=== PATIENT | male | born 1950 | race Caucasian/White ===

== ENCOUNTER 2019-10-27 01:27 | Outpatient (CLI) | payer MEDICARE, SELFPAY ==
[2019-10-27 18:35] LABS: SARS-CoV-2 RNA PCR Negative
== END 2019-10-27 01:28 | disposition home or self-care (01) ==
LOC: ANHCOVIDDT 01:27
PROVIDERS: PCP Internal Medicine; Visit Provider Internal Medicine Gastroenterology
DX: Z01.812 Encounter for preprocedural laboratory examination (principal); Z20.828 Contact with and (suspected) exposure to other viral communicable diseases
CPT/HCPCS: 87635; C9803; U0003

== ENCOUNTER 2019-10-29 01:16 | Day surgery (SDC) | payer MEDICARE, SELFPAY ==
[2019-10-21 12:57] VITALS: BMI 33.5
[2019-10-29 06:39] VITALS: BMI 34.1
[2019-10-29 06:45] VITALS: BP 206/80; PULSE 58; RESP 20; O2SAT 96
[2019-10-29 07:03] LABS: Glucose Point of Care 134 (65-105)
[2019-10-29] MEDS: LACTATED RINGERS 1,000 ML 150 ML IV CONT (07:08)
[2019-10-29 07:18] LABS: INR 1.7; Prothrombin Time 19.9 Seconds (11.1-14.7)
--- NOTE | 2019-10-29 07:45 | WPDANESEPPF ---
Anes - Initial Pre Proc Eval Procedure: Operation Date: 10/29/19 08:00 Proposed Procedures p Esophagogastroduodenoscopy & Colonoscopy - Fernando Kramer MD Date/Time: 10/29/19 07:45 Surgeon: Fernando Kramer MD Pre Op Diagnosis: Iron Deficiency Anemia Patient Data Age: 69 Gender: M Height: 5 ft 10 in Weight: 108 kg Allergies Allergy/AdvReac Type Severity Reaction Status Date / Time Penicillins Allergy Unknown unknown Verified 10/29/19 06:42 Home Medications Medication Instructions Recorded Confirmed Type folic acid-vit B6-vit B12 2.2 1 tablet PO DAILY 05/05/19 10/21/19 History mg-25 mg-0.5 mg tablet sotalol 80 mg tablet 80 mg PO BID 05/05/19 10/21/19 History warfarin 4 mg tablet 4 mg PO DAILY tablet 05/05/19 10/21/19 History tamsulosin 0.4 mg capsule 0.4 mg PO DAILY #90 cap 05/18/19 10/21/19 Rx furosemide 40 mg tablet 40 mg PO DAILY #90 tablet 06/22/19 10/21/19 Rx aspirin 81 mg tablet,delayed 81 mg PO DAILY 08/17/19 10/21/19 History release mecobalamin (vitamin B12) 1,000 1,000 mcg SUBLINGUAL DAILY 08/17/19 10/21/19 History mcg disintegrating tablet,sublingual ferrous sulfate 325 mg (65 mg 325 mg PO BID #60 tablet 09/15/19 10/21/19 Rx iron) tablet potassium chloride 10 mEq 10 meq PO DAILY #90 tablet 09/17/19 10/21/19 Rx tablet,extended release(part/cryst) quinapril 40 mg tablet 40 mg PO BID #180 tablet 09/21/19 10/21/19 Rx omega 7-zfg-xve-fish oil [Fish Oil] 1 cap PO BID 10/21/19 10/21/19 History atorvastatin 80 mg tablet 80 mg PO DAILY #90 tablet 10/26/19 Rx metformin 500 mg tablet 500 mg PO BID #180 tablet 10/26/19 Rx Laboratory Tests 10/29/19 10/29/19 07:00 07:01 PT 19.9 Seconds H Seconds (11.1-14.7) INR 1.7 POC Capillary Glucose 134 mg/dl H mg/dl (65-105) Patient hx anesthesia problems: none Family hx anesthesia problems: none [facility] Past Medical History Medical History Acute allergic conjunctivitis of left eye Blepharitis of left eye BMI 36.0-36.9,adult Encounter for routine adult health examination with abnormal findings Fatigue Hyperlipidemia Iron deficiency anemia SOB (shortness of breath) Surgical History Surgical History Aortic valve replaced History of tonsillectomy Social History Social History Smoking status: Never smoker Alcohol intake: current Gender identity (if verbalized by the patient): Male Sexual Orientation (if Verbalized by the Patient): Straight or Heterosexual Anes - Eval Final PreProcedure Day of Procedure 10/29/19 07:45 Patient weight: obese Heart: regular rate and rhythm Lungs: clear to auscultation Airway: Mallampati scale class II Neurological: alert and oriented Last oral intake: >/= 8 hours ASA classification: III Emergent: no Anesthetic plan: proceed Anesthesia type and monitoring: general GIVS and standard monitoring Informed Consent: The patient's anesthetic plan and its attendant risks and benefits were discussed with the patient/family/POA. Questions were solicited and answers provided to the satisfaction of the patient/family/POA.
--- NOTE | 2019-10-29 08:20 | WPDGICN ---
Assessment and Plan Assessment and plan (1) Iron deficiency anemia: Qualifiers: Iron deficiency anemia type: unspecified iron deficiency Qualified Code(s): D50.9 - Iron deficiency anemia, unspecified Code(s): D50.9 - Iron deficiency anemia, unspecified Status: Acute Assessment and Plan: Because of patient's anemia and concern over anticoagulation concern over possible GI blood loss. Plan is for colonoscopy an EGD prior to resuming anticoagulation. Coumadin will be held briefly during this interval. (2) Aortic valve replaced: Code(s): Z95.2 - Presence of prosthetic heart valve Status: Acute GI Consult Note Consult date/time: 10/29/19 08:20 HPI: Delroy Chou is a 69 year old male Seen in evaluation at the request of Dr Ameya Chaudhary. patient recently found to be anemic. He presents today for endoscopy. Patient has been feeling weak for approximately 2-3 months. His hemoglobin is noted to drop to 9.1. Patient has been started on iron replacement with some improvement of symptoms. He denies any obvious bleeding. He states his weight appetite bowel movements are normal. He did denies abdominal pain. With iron replacement is hemoglobin is begun to return to normal. Past medical history is significant for aortic valve replacement 2007 on warfarin therapy. Family history is no reported history of colon or rectal disease. His father had peptic ulcer. Review of Systems Review of Systems: All systems reviewed & are unremarkable except as noted in HPI and below PMFSH Past Medical History Medical History Acute allergic conjunctivitis of left eye Blepharitis of left eye BMI 36.0-36.9,adult Encounter for routine adult health examination with abnormal findings Fatigue Hyperlipidemia Iron deficiency anemia SOB (shortness of breath) Surgical History Surgical History Aortic valve replaced History of tonsillectomy Family History Family History Mother Hypertension Social History Social History Smoking status: Never smoker Alcohol intake: current Gender identity (if verbalized by the patient): Male Sexual Orientation (if Verbalized by the Patient): Straight or Heterosexual Meds Home Medications and Allergies Home Medications Medication Instructions Recorded Confirmed Type folic acid-vit B6-vit B12 2.2 1 tablet PO DAILY 05/05/19 10/21/19 History mg-25 mg-0.5 mg tablet sotalol 80 mg tablet 80 mg PO BID 05/05/19 10/21/19 History warfarin 4 mg tablet 4 mg PO DAILY tablet 05/05/19 10/21/19 History tamsulosin 0.4 mg capsule 0.4 mg PO DAILY #90 cap 05/18/19 10/21/19 Rx furosemide 40 mg tablet 40 mg PO DAILY #90 tablet 06/22/19 10/21/19 Rx aspirin 81 mg tablet,delayed 81 mg PO DAILY 08/17/19 10/21/19 History release mecobalamin (vitamin B12) 1,000 1,000 mcg SUBLINGUAL DAILY 08/17/19 10/21/19 History mcg disintegrating tablet,sublingual ferrous sulfate 325 mg (65 mg 325 mg PO BID #60 tablet 09/15/19 10/21/19 Rx iron) tablet potassium chloride 10 mEq 10 meq PO DAILY #90 tablet 09/17/19 10/21/19 Rx tablet,extended release(part/cryst) quinapril 40 mg tablet 40 mg PO BID #180 tablet 09/21/19 10/21/19 Rx omega 6-qdq-gsc-fish oil [Fish Oil] 1 cap PO BID 10/21/19 10/21/19 History atorvastatin 80 mg tablet 80 mg PO DAILY #90 tablet 10/26/19 Rx metformin 500 mg tablet 500 mg PO BID #180 tablet 10/26/19 Rx Allergies Allergy/AdvReac Type Severity Reaction Status Date / Time Penicillins Allergy Unknown unknown Verified 10/29/19 06:42 Exam Narrative: Exam Narrative: Physical exam reveals patient to be alert. Vital signs stable. HEENT exam unremarkable. Lungs are clear to auscultation and percussion. Heart is without murmur or e
[2019-10-29] MEDS: BENZOCAINE (*SP) 60 ML SPRAY CAN (HURRICAINE) 1 SPRAY MUCOUS MEM (08:30)
--- NOTE | 2019-10-29 08:59 | SUR.OPER ---
EGD START 834, END 837 COLONOSCOPY START 845, END 855
[2019-10-29 09:02] VITALS: BP 97/73; PULSE 45; RESP 23; O2SAT 97
[2019-10-29 09:12] VITALS: BP 100/64; PULSE 46; RESP 21; O2SAT 97
[2019-10-29 09:21] VITALS: BP 112/64; PULSE 46; RESP 20; O2SAT 97
== END 2019-10-29 09:38 | disposition home or self-care (01) ==
PROVIDERS: PCP Internal Medicine; Visit Provider Internal Medicine Gastroenterology
PROC: 0DJ08ZZ Inspection of Upper Intestinal Tract, Via Natural or Artificial Opening Endoscopic (ICD-10-PCS; CPT 43235; principal; 2019-10-29 08:00)
DX: D50.9 Iron deficiency anemia, unspecified (principal); K25.3 Acute gastric ulcer without hemorrhage or perforation; K29.50 Unspecified chronic gastritis without bleeding; K44.9 Diaphragmatic hernia without obstruction or gangrene; K64.8 Other hemorrhoids; K57.30 Diverticulosis of large intestine without perforation or abscess without bleeding; E78.5 Hyperlipidemia, unspecified; Z95.2 Presence of prosthetic heart valve; Z79.01 Long term (current) use of anticoagulants; Z79.82 Long term (current) use of aspirin; Z79.84 Long term (current) use of oral hypoglycemic drugs
CPT/HCPCS: 43239; 45378; 36415; 85610; 88305; 88342; J2704; J3370; J7120

== ENCOUNTER 2020-01-06 03:50 | Outpatient (CLI) | payer MEDICARE, SELFPAY ==
[2020-01-06 19:05] LABS: SARS-CoV-2 RNA PCR Negative
== END 2020-01-06 03:51 | disposition home or self-care (01) ==
LOC: ANHCOVIDDT 03:51
PROVIDERS: PCP Internal Medicine; Visit Provider Internal Medicine Gastroenterology
DX: Z01.812 Encounter for preprocedural laboratory examination (principal); Z20.828 Contact with and (suspected) exposure to other viral communicable diseases
CPT/HCPCS: 87635; C9803; U0003

== ENCOUNTER 2020-01-08 01:44 | Day surgery (SDC) | payer MEDICARE, SELFPAY ==
[2020-01-04 09:58] VITALS: BMI 33.0
[2020-01-08 06:17] VITALS: BP 193/69; PULSE 56; RESP 14; TEMP 36.5; O2SAT 96; BMI 34.0
[2020-01-08] MEDS: LACTATED RINGERS 1,000 ML 30 ML IV CONT (06:36)
[2020-01-08 06:46] LABS: Glucose Point of Care 146 (65-105)
[2020-01-08 07:15] LABS: INR 1.7; Prothrombin Time 19.7 Seconds (11.1-14.7)
--- NOTE | 2020-01-08 07:37 | WPDGICN ---
Assessment and Plan Assessment and plan (1) Iron deficiency anemia: Qualifiers: Iron deficiency anemia type: unspecified iron deficiency Qualified Code(s): D50.9 - Iron deficiency anemia, unspecified Code(s): D50.9 - Iron deficiency anemia, unspecified Status: Acute Assessment and Plan: Continue iron replacement. (2) Gastric ulcer: Code(s): K25.9 - Gastric ulcer, unspecified as acute or chronic, without hemorrhage or perforation Status: Acute Assessment and Plan: Patient with recent gastric ulcer. Now on proton pump inhibitor therapy. Plan is for EGD to assess response to therapy. Continue iron replacement. Avoid nonsteroidal anti-inflammatory agents. (3) Aortic valve replaced: Code(s): Z95.2 - Presence of prosthetic heart valve Status: Acute Assessment and Plan: Anticoagulation will be held briefly for endoscopy. GI Consult Note Consult date/time: 01/08/20 07:37 HPI: Delroy Chou is a 69 year old male seen in evaluation at the request of Dr Chaudhary patient recently underwent evaluation for iron deficiency anemia GI endoscopy revealed gastric ulcer. Patient has been maintained on proton pump inhibitor therapy. He denies any bleeding. He has had no weight loss. His bowel habits have been normal. He tolerates diet with no pain. He presents today for follow-up examination. Review of Systems Review of Systems: All systems reviewed & are unremarkable except as noted in HPI and below PMFSH Past Medical History Medical History (Updated 01/08/20 @ 07:39 by Fernando Kramer MD) Acute allergic conjunctivitis of left eye Blepharitis of left eye BMI 36.0-36.9,adult Encounter for routine adult health examination with abnormal findings Fatigue Hyperlipidemia Iron deficiency anemia SOB (shortness of breath) Surgical History Surgical History Aortic valve replaced History of tonsillectomy Family History Family History Mother Hypertension Social History Social History Smoking status: Never smoker Alcohol intake: current Substance use type: does not use Living arrangements: with family Gender identity (if verbalized by the patient): Male Spiritual care concerns: No Meds Home Medications and Allergies Home Medications Medication Instructions Recorded Confirmed Type sotalol 80 mg tablet 80 mg PO BID 05/05/19 01/08/20 History warfarin 4 mg tablet 4 mg PO DAILY tablet 05/05/19 01/08/20 History tamsulosin 0.4 mg capsule 0.4 mg PO DAILY #90 cap 05/18/19 01/08/20 Rx aspirin 81 mg tablet,delayed 81 mg PO DAILY 08/17/19 01/08/20 History release mecobalamin (vitamin B12) 1,000 1,000 mcg SUBLINGUAL DAILY 08/17/19 01/08/20 History mcg disintegrating tablet,sublingual potassium chloride 10 mEq 10 meq PO DAILY #90 tablet 09/17/19 01/08/20 Rx tablet,extended release(part/cryst) quinapril 40 mg tablet 40 mg PO BID #180 tablet 09/21/19 01/08/20 Rx omega 6-voy-zlh-fish oil [Fish Oil] 1 cap PO BID 10/21/19 01/08/20 History atorvastatin 80 mg tablet 80 mg PO DAILY #90 tablet 10/26/19 01/08/20 Rx metformin 500 mg tablet 500 mg PO BID #180 tablet 10/26/19 01/08/20 Rx furosemide 40 mg tablet See Rx Instructions .ROUTE 12/15/19 01/08/20 Rx .COMPLEX #90 tablet Allergies Allergy/AdvReac Type Severity Reaction Status Date / Time Penicillins Allergy Unknown unknown Verified 01/08/20 06:34 Vital Signs Vital Signs - 24 hr 01/08/20 06:17 Temperature 97.7 F Pulse Rate 56 L Respiratory Rate 14 Blood Pressure 193/69 H Pulse Oximetry 96 Exam Narrative: Exam Narrative: Physical exam reveals patient to be alert. Vital signs stable. HEENT exam unremarkable. Lungs are clear to auscultation and percussion. Heart is without murmur or extra sounds. Abdomina
[2020-01-08 07:39] VITALS: BP 109/61; PULSE 53; RESP 25; O2SAT 92
[2020-01-08 07:49] VITALS: BP 105/59; PULSE 51; RESP 21; O2SAT 95
[2020-01-08 07:59] VITALS: BP 122/66; PULSE 52; RESP 25; O2SAT 95
[2020-01-08 08:08] VITALS: BP 138/71; PULSE 52; RESP 27; O2SAT 95
== END 2020-01-08 08:20 | disposition home or self-care (01) ==
PROVIDERS: PCP Internal Medicine; Visit Provider Internal Medicine Gastroenterology
PROC: 0DJ08ZZ Inspection of Upper Intestinal Tract, Via Natural or Artificial Opening Endoscopic (ICD-10-PCS; CPT 43235; principal; 2020-01-08 07:30)
DX: K25.9 Gastric ulcer, unspecified as acute or chronic, without hemorrhage or perforation (principal); D50.9 Iron deficiency anemia, unspecified; K29.50 Unspecified chronic gastritis without bleeding; K29.00 Acute gastritis without bleeding; E78.5 Hyperlipidemia, unspecified; Z95.2 Presence of prosthetic heart valve; Z79.01 Long term (current) use of anticoagulants
CPT/HCPCS: 43239; 36415; 85610; 88305; 88342; J2704; J3370; J7120

== ENCOUNTER 2020-06-24 16:55 | Emergency (ER) | payer MEDICARE, SELFPAY ==
[2020-06-24 17:03] VITALS: BP 160/66; PULSE 80; RESP 18; TEMP 37.2; O2SAT 97
[2020-06-24 18:32] VITALS: BP 163/91; PULSE 84; RESP 16; O2SAT 93
--- NOTE | 2020-06-24 18:44 | ED.MALEGU ---
HPI - Male Genitourinary General Chief complaint: Urogenital-Male Stated complaint: frequent urination Time Seen by Provider: 06/24/20 18:25 Source: patient Mode of arrival: ambulatory Limitations: no limitations History of Present Illness HPI Narrative: Patient is a 70-year-old male complaining of increasing urinary frequency and hematuria that started today. Patient was advised by his urologist to go to the emergency room for further evaluation and treatment. Patient denies any chest pain, shortness of breath, abdominal pain, flank pain, fever or chills. Related Data Home Medications Medication Instructions Recorded Confirmed sotalol 80 mg tablet 80 mg PO BID 05/05/19 06/23/20 warfarin 4 mg tablet 4 mg PO DAILY tablet 05/05/19 06/23/20 aspirin 81 mg tablet,delayed 81 mg PO DAILY 08/17/19 06/23/20 release mecobalamin (vitamin B12) 1,000 1,000 mcg SUBLINGUAL DAILY 08/17/19 06/23/20 mcg disintegrating tablet,sublingual folic acid-vit B6-vit B12 2.2 1 tablet PO DAILY 01/21/20 06/23/20 mg-25 mg-0.5 mg tablet cholecalciferol (vitamin D3) 50 mcg PO DAILY 06/23/20 06/23/20 furosemide 40 mg PO QAM 06/23/20 06/23/20 potassium chloride 10 meq PO DAILY 06/23/20 06/23/20 tamsulosin 0.4 mg PO HS 06/23/20 06/23/20 Allergies Allergy/AdvReac Type Severity Reaction Status Date / Time Penicillins Allergy Unknown Rash Verified 06/24/20 18:38 Review of Systems Review of Systems: All systems reviewed & are unremarkable except as noted in HPI and below Constitutional: Constitutional: Denies body ache(s), Denies chills, Denies excessive sweating, Denies fatigue, Denies fever(s), Denies headache(s), Denies lethargy, Denies malaise, Denies weakness and Denies weight loss Eyes: Eyes: Denies blurry vision, Denies change in vision and Denies loss of vision ENT: Denies dizziness, Denies ear discharge, Denies headache(s), Denies lip swelling, Denies epistaxis, Denies nasal congestion, Denies neck pain, Denies throat swelling and Denies tongue swelling Cardiovascular: Cardiovascular: Denies chest pain, Denies chest pain at rest, Denies chest pain with activity, Denies diaphoresis, Denies rapid heart rate, Denies edema, Denies irregular heart rhythm, Denies lightheadedness, Denies palpitations, Denies dyspnea and Denies dyspnea on exertion Respiratory: Respiratory: Denies chest congestion, Denies cough, Denies hemoptysis, Denies dyspnea and Denies dyspnea on exertion Gastrointestinal: Gastrointestinal: Denies abdominal pain, Denies melena, Denies hematochezia, Denies diarrhea, Denies nausea, Denies vomiting and Denies hematemesis Musculoskeletal: Musculoskeletal: Denies abnormal gait, Denies deformity, Denies joint swelling, Denies limited range of motion, Denies neck pain and Denies numbness Neurologic: Denies Abnormal speech present, Denies abnormal gait, Denies confusion, Denies dizziness, Denies headache(s), Denies focal weakness, Denies loss of vision, Denies numbness, Denies Other visual disturbances, Denies Sensory deficit (Neuro) and Denies weakness Psychiatric: Psychiatric: Denies confusion, Denies depression, Denies auditory hallucinations, Denies homicidal ideation and Denies suicidal ideation Endocrine: Endocrine: Denies cold intolerance, Denies excessive sweating, Denies fatigue, Denies heat intolerance and Denies palpitations Hematologic/Lymphatic: Hematologic/Lymphatic: Denies easy bleeding and Denies easy bruising Allergic/Immunologic: Allergic/Immunologic: Denies lip swelling, Denies throat swelling and Denies tongue swelling PMFSH Past Medical History Medical History A-fib Acute allergic conjunctivitis of left eye Blepharitis of left eye BMI 34.0-34.9,adult BMI 36.0-36.9,adult DM w/o complication type II Encounter for routine adult health examination with abnormal findings Encounter for routine adult health examination without abnormal findings Fatigue Hyperlipidem
[2020-06-24 18:59] LABS: Basophils Absolute Auto 0.1 K/mm3 (0.0-0.1); Basophils Percent Auto 0.4 % (0.2-1.2); Eosinophils Percent Auto 0.3 % (0-4.4); Hematocrit 45.5 % (42.0-52.0); Hemoglobin 16.3 g/dL (14.0-18.0); Immature Granulocyte Absolute 0.07 K/mm3 (0.00-0.031); Immature Granulocyte Percent A 0.6 % (0-0.5); Lymphocytes Absolute Auto 0.88 K/mm3 (0.9-3.2); Lymphocytes Percent Auto 7.3 % (18.3-44.2); Mean Corpuscular HGB Conc 35.8 g/dl (32-36); Mean Corpuscular Hemoglobin 33.7 pg (26-34); Mean Platelet Volume 11.4 fl (7.4-10.4); Monocytes Absolute Auto 2.1 K/mm3 (0.1-0.6); Monocytes Percent Auto 17.8 % (2.6-8.5); Neutrophils Absolute Auto 8.8 K/mm3 (1.3-6.7); Neutrophils Percent Auto 73.6 % (45.5-73.1); Platelet Count Result 201 k/mm3 (150-375); Red Blood Count 4.84 M/mm3 (4.6-6.20); Red Cell Distribution Width 14.6 % (11.5-14.5)
[2020-06-24 19:07] LABS: Add Urine Microscopic? YES; Appearance Urine Turbid (Clear); Bacteria Urine 1+ /hpf; Bilirubin Urine Negative (Negative); Blood Urine 3+ (Negative); Color Urine Red (Yellow); Glucose Urine UA 1+ mg/dL (Negative); Ketones Urine Negative (Negative); Leukocyte Esterase Ur 2+ LEU/UL (Negative); Nitrate Urine Negative (Negative); Protein Urine 2+ mg/dL (Negative); RBC Urine >75 /hpf (0-2); Specific Grav Ur 1.019 (1.001-1.035); Urobilinogen Urine Negative mg/dL (<2.0); WBC Clumps Urine Present /HPF; WBC Urine >75 /hpf
[2020-06-24 19:13] LABS: Anion Gap 11 mmol/L (8-16); Blood Urea Nitrogen 32 mg/dL (9-20); Calcium 9.2 mg/dL (8.4-10.2); Carbon Dioxide 22 mmol/L (22-30); Chloride 104 mmol/L (98-107); Estimated CRCL calculation 59 ml/min; Estimated Glomerular Filt Rate 60; Glucose 158 mg/dL (75-110); INR 2.1; Partial Thromboplastin Time 50.1 SECONDS (22.3-36.8); Potassium 3.8 mmol/L (3.4-5.0); Prothrombin Time 24.5 Seconds (11.1-14.7); Sodium 137 mmol/L (137-145)
[2020-06-24 21:31] VITALS: BP 148/78; PULSE 80; RESP 16; O2SAT 100
== END 2020-06-24 21:33 | disposition home or self-care (01) ==
PROVIDERS: Emergency Provider Emergency Medicine; PCP Internal Medicine
DX: N30.01 Acute cystitis with hematuria (principal); I48.91 Unspecified atrial fibrillation; E11.9 Type 2 diabetes mellitus without complications; E78.5 Hyperlipidemia, unspecified; E53.8 Deficiency of other specified B group vitamins; E55.9 Vitamin D deficiency, unspecified; Z79.01 Long term (current) use of anticoagulants; Z79.82 Long term (current) use of aspirin; Z79.84 Long term (current) use of oral hypoglycemic drugs
CPT/HCPCS: 36415; 80048; 81001; 85025; 85610; 85730; 87077; 87086; 87088; 87186; 99284; J0696

== ENCOUNTER → 2020-06-27 03:07 | Outpatient (CLI) | payer MEDICARE, SELFPAY ==
[2020-06-27 19:42] LABS: SARS-CoV-2 RNA PCR Negative
== END ==
PROVIDERS: PCP Internal Medicine; Visit Provider Urology
DX: Z01.812 Encounter for preprocedural laboratory examination (principal); Z20.822 Contact with and (suspected) exposure to COVID-19
CPT/HCPCS: C9803; U0003; U0005

== ENCOUNTER 2020-06-28 10:32 | Outpatient (CLI) | payer MEDICARE, SELFPAY ==
[2020-06-28 11:59] LABS: INR 1.3; Prothrombin Time 16.8 Seconds (11.1-14.7)
[2020-06-28 12:00] LABS: Partial Thromboplastin Time 31.5 SECONDS (22.3-36.8)
== END 2020-06-28 10:33 | disposition home or self-care (01) ==
LOC: ANHSURGERY 10:35
PROVIDERS: Anesthesiology; PCP Internal Medicine; Visit Provider Urology
DX: Z79.899 Other long term (current) drug therapy (principal); Z01.818 Encounter for other preprocedural examination
CPT/HCPCS: 36415; 85610; 85730

== ENCOUNTER → 2020-07-11 04:16 | Outpatient (CLI) | payer MEDICARE, SELFPAY ==
[2020-07-11 19:57] LABS: SARS-CoV-2 RNA PCR Negative
== END ==
PROVIDERS: PCP Internal Medicine; Visit Provider Urology
DX: Z01.812 Encounter for preprocedural laboratory examination (principal); Z20.822 Contact with and (suspected) exposure to COVID-19
CPT/HCPCS: C9803; U0003; U0005

== ENCOUNTER 2020-07-14 01:10 | Day surgery (SDC) | payer MEDICARE, SELFPAY ==
[2020-06-23 12:30] VITALS: BMI 32.2
--- NOTE | 2020-07-11 07:57 | PM.HPGS ---
History of Present Illness History of Present Illness Consent: Risks, benefits, and alternatives have been discussed and questions answered. Patient agrees to proceed with procedure. Chief complaint: elevated psa Narrative: Delroy Chou is a 70 year old male with a known history of prostate cancer diagnosed in February 2019. Initial biopsy showed 1 of 12 cores with [place] adenocarcinoma 6. He is adopted a course of active surveillance but recent prostate MRI shows a suspicious lesion in the left base, anterior transition zone. After discussion of options we have elected for a MRI fusion confirmatory biopsy. He is aware of the risk including rectal bleeding and urinary tract infection with possible sepsis. Review of Systems Cardiovascular: Cardiovascular: Denies chest pain, Denies lightheadedness, Denies palpitations and Denies dyspnea Respiratory: Respiratory: Denies dyspnea Gastrointestinal: Gastrointestinal: Denies diarrhea, Denies nausea and Denies vomiting Genitourinary: Genitourinary: Denies hematuria and Denies dysuria Endocrine: Endocrine: Denies palpitations PMFSH Past Medical History Medical History A-fib Acute allergic conjunctivitis of left eye Blepharitis of left eye BMI 34.0-34.9,adult BMI 36.0-36.9,adult DM w/o complication type II Encounter for routine adult health examination with abnormal findings Encounter for routine adult health examination without abnormal findings Fatigue Hyperlipidemia Iron deficiency anemia SOB (shortness of breath) Vitamin B12 deficiency Vitamin D deficiency Surgical History Surgical History Aortic valve replaced History of tonsillectomy Family History Family History Mother Hypertension Social History Social History Smoking status: Never smoker Second hand tobacco smoke exposure: Yes Alcohol intake: current Drinks per week: 14 Substance use: never Substance use type: does not use Additional living arrangements comments: Gender identity (if verbalized by the patient): Male Spiritual care concerns: No Meds Home Medications and Allergies Home Medications Medication Instructions Recorded Confirmed Type sotalol 80 mg tablet 80 mg PO BID 05/05/19 07/05/20 History warfarin 4 mg tablet 4 mg PO DAILY tablet 05/05/19 07/05/20 History aspirin 81 mg tablet,delayed 81 mg PO DAILY 08/17/19 07/05/20 History release mecobalamin (vitamin B12) 1,000 1,000 mcg SUBLINGUAL DAILY 08/17/19 07/05/20 History mcg disintegrating tablet,sublingual quinapril 40 mg tablet 40 mg PO BID #180 tablet 09/21/19 07/05/20 Rx atorvastatin 80 mg tablet 80 mg PO DAILY #90 tablet 10/26/19 07/05/20 Rx metformin 500 mg tablet 500 mg PO BID #180 tablet 10/26/19 07/05/20 Rx folic acid-vit B6-vit B12 2.2 1 tablet PO DAILY 01/21/20 07/05/20 History mg-25 mg-0.5 mg tablet pantoprazole 40 mg tablet,delayed 40 mg PO QAM #90 tablet 04/08/20 07/05/20 Rx release cholecalciferol (vitamin D3) 50 mcg PO DAILY 06/23/20 07/05/20 History furosemide 40 mg PO QAM 06/23/20 07/05/20 History potassium chloride 10 meq PO DAILY 06/23/20 07/05/20 History tamsulosin 0.4 mg PO HS 06/23/20 07/05/20 History nitrofurantoin 100 mg PO Q12H 10 Days #20 cap 07/06/20 Rx monohydrate/macrocrystals 100 mg capsule Allergies Allergy/AdvReac Type Severity Reaction Status Date / Time Penicillins Allergy Unknown Rash Verified 07/05/20 12:29 Exam Const: General: no acute distress Resp: Effort & Inspection: normal respiratory effort GI: Inspection: non-distended GI Palp: No abdominal tenderness and No Guarding due to palpation present (GI) Auscultation: normal bowel sounds Assessment and Plan Assessment and plan (1) Prostate cancer: Cod
--- NOTE | 2020-07-14 06:55 | WPDHPUPDATE1 ---
History and Physical Update Update Date/Time: 07/14/20 06:55 History and Physical has been reviewed, including an updated exam of the patient. There are NO changes in the patient's condition. Risks, benefits, and alternatives have been discussed and questions answered. Patient agrees to proceed with procedure.
[2020-07-14] MEDS: LACTATED RINGERS 1,000 ML 30 ML IV CONT (10:22)
[2020-07-14 10:28] LABS: Glucose Point of Care 128 (65-105)
[2020-07-14 10:37] VITALS: BP 150/96; PULSE 84; RESP 16; TEMP 36.6; O2SAT 98
[2020-07-14 10:43] LABS: INR 1.6; Prothrombin Time 19.7 Seconds (11.1-14.7)
--- NOTE | 2020-07-14 10:53 | WPDANESEPPF ---
Anes - Initial Pre Proc Eval Procedure: Operation Date: 07/14/20 11:45 Proposed Procedures p Prostate Ultrasound and Cognitive Uronav Fusion Biopsy - Oswaldo Olivares MD Date/Time: 07/14/20 10:53 Surgeon: Oswaldo Olivares MD Pre Op Diagnosis: elevated psa Patient Data Age: 70 Gender: M Height: 5 ft 10 in Weight: 99.4 kg Last Vital Signs Temp 97.9 F 07/14/20 10:37 Pulse 84 07/14/20 10:37 Resp 16 07/14/20 10:37 BP 150/96 H 07/14/20 10:37 Pulse Ox 98 07/14/20 10:37 Allergies Allergy/AdvReac Type Severity Reaction Status Date / Time Penicillins Allergy Intermediate Rash Verified 07/14/20 10:09 Home Medications Medication Instructions Recorded Confirmed Type sotalol 80 mg tablet 80 mg PO BID 05/05/19 07/14/20 History warfarin 4 mg tablet 4 mg PO DAILY tablet 05/05/19 07/14/20 History aspirin 81 mg tablet,delayed 81 mg PO DAILY 08/17/19 07/14/20 History release mecobalamin (vitamin B12) 1,000 1,000 mcg SUBLINGUAL DAILY 08/17/19 07/14/20 History mcg disintegrating tablet,sublingual quinapril 40 mg tablet 40 mg PO BID #180 tablet 09/21/19 07/14/20 Rx atorvastatin 80 mg tablet 80 mg PO DAILY #90 tablet 10/26/19 07/14/20 Rx metformin 500 mg tablet 500 mg PO BID #180 tablet 10/26/19 07/14/20 Rx folic acid-vit B6-vit B12 2.2 1 tablet PO DAILY 01/21/20 07/14/20 History mg-25 mg-0.5 mg tablet pantoprazole 40 mg tablet,delayed 40 mg PO QAM #90 tablet 04/08/20 07/14/20 Rx release cholecalciferol (vitamin D3) 50 mcg PO DAILY 06/23/20 07/14/20 History furosemide 40 mg PO QAM 06/23/20 07/14/20 History potassium chloride 10 meq PO DAILY 06/23/20 07/14/20 History tamsulosin 0.4 mg PO HS 06/23/20 07/14/20 History nitrofurantoin 100 mg PO Q12H 10 Days #20 cap 07/06/20 07/14/20 Rx monohydrate/macrocrystals 100 mg capsule Laboratory Tests 07/14/20 07/14/20 10:00 10:24 PT 19.7 Seconds H Seconds (11.1-14.7) INR 1.6 POC Capillary Glucose 128 mg/dl H mg/dl (65-105) Patient hx anesthesia problems: none Family hx anesthesia problems: none PMFSH Past Medical History Medical History A-fib Acute allergic conjunctivitis of left eye Blepharitis of left eye BMI 34.0-34.9,adult BMI 36.0-36.9,adult DM w/o complication type II Encounter for routine adult health examination with abnormal findings Encounter for routine adult health examination without abnormal findings Fatigue Hyperlipidemia Iron deficiency anemia SOB (shortness of breath) Vitamin B12 deficiency Vitamin D deficiency Surgical History Surgical History Aortic valve replaced History of tonsillectomy Family History Family History Mother Hypertension Social History Social History Smoking status: Never smoker Second hand tobacco smoke exposure: Yes Alcohol intake: current Drinks per week: 14 Substance use: never Substance use type: does not use Living arrangements: with family Additional living arrangements comments: Gender identity (if verbalized by the patient): Male Spiritual care concerns: No Anes - Eval Final PreProcedure Day of Procedure 07/14/20 10:53 Patient weight: obese Heart: regular rate and rhythm Lungs: clear to auscultation Airway: Mallampati scale class II Neurological: alert and oriented Last oral intake: >/= 8 hours ASA classification: III Emergent: no Anesthetic plan: proceed Anesthesia type and monitoring: general GIVS and standard monitoring Informed Consent: The patient's anesthetic plan and its attendant risks and benefits were discussed with the patient/family/POA. Questions were solicited and answers provided to the satisfaction of the patient/family/POA.
--- NOTE | 2020-07-14 12:03 | SUR.PREOP ---
1200-DR. SMITH AWARE OF INR 1.6, TALKED WITH PT AND WILL PROCEED.
[2020-07-14 12:39] VITALS: BP 127/81; PULSE 107; RESP 12; O2SAT 95
[2020-07-14 13:00] VITALS: BP 129/86; PULSE 93; RESP 16
--- NOTE | 2020-07-14 13:03 | PM.PROC ---
Procedure Note - Detailed Date of procedure: 07/14/20 Pre-op diagnosis: elevated psa Post-op diagnosis: same Procedure performed: UroNav prostate biopsy Description of procedure: Patient is brought to the operative suite where he is positioned in the left lateral position. Systemic sedation is administered per the anesthesia department. Surgical time-out is undertaken in its verified the patient has received preoperative antibiotics. Transrectal ultrasonography is undertaken with a standard transrectal probe. The [employer] system is used to superimpose his previously obtained mpMRI prostate images on the real-time transrectal ultrasond images. On the previous mpMRI there are one region 1 of interest. Using the transrectal needle design for prostate biopsies 3 cores from each region of interest her obtain. We then proceeded with a standard 12 core prostate biopsy. Transrectal probe was removed and patient taken to recovery room having tolerated the procedure well. Blood loss was less than 10 cc. Surgeon: Oswaldo Olivares MD Estimated blood loss (mL): 0 Drains: No Packing: No Pathology: yes Complications: No immediate complications Condition: stable Disposition: PACU
[2020-07-14 13:30] VITALS: BP 149/93; PULSE 75; RESP 16
[2020-07-15 05:49] LABS: Glucose Point of Care 128 (65-105)
== END 2020-07-14 13:40 | disposition home or self-care (01) ==
PROVIDERS: Anesthesiology; PCP Internal Medicine; Visit Provider Urology
PROC: (CPT 55700; principal; 2020-07-14 11:45)
DX: C61 Malignant neoplasm of prostate (principal); I10 Essential (primary) hypertension; E11.9 Type 2 diabetes mellitus without complications; Z79.84 Long term (current) use of oral hypoglycemic drugs; E78.5 Hyperlipidemia, unspecified; K21.9 Gastro-esophageal reflux disease without esophagitis; I48.91 Unspecified atrial fibrillation; Z79.01 Long term (current) use of anticoagulants; F32.9 Major depressive disorder, single episode, unspecified; Z95.2 Presence of prosthetic heart valve
CPT/HCPCS: 55700; 36415; 82948; 85610; 88305; J0696; J2370; J2405; J2704; J3010; J7120

== ENCOUNTER 2021-03-13 13:46 | Outpatient (CLI) | payer MEDICARE, SELFPAY ==
--- NOTE | ~2021-03-13 | CT_ITS ---
EXAMINATION:CT chest high resolution wo nv DATE: 03/13/2021 14:36 INDICATION: Shortness of breath. TECHNIQUE: Computed tomography (CT) of the chest was performed without intravenous contrast. Automate d exposure control and iterative reconstruction technique were employed. The dose-length product (DLP ) was 546.11 mGy-cm. COMPARISON: Chest 2 views 04/14/2018 FINDINGS: There are small pleural effusions, right worse than left. There is smooth septal thickening in the lungs bilaterally, consistent with mild pulmonary edema. There is mild peripheral atelectasis bilaterally. There is biatrial enlargement of the heart. There are calcifications of the coronary ar teries. There are pericardial calcifications that exert mass effect on the heart, consistent with con strictive pericarditis. There are calcifications of the aortic valve. Median sternotomy wires are not ed. There is a small sliding hiatal hernia. There is a small volume of ascites. Partially visualized is hydronephrosis of left kidney with mild atrophy. A cyst at the hilum of right kidney may be a alicja pelvic cyst or hydronephrosis. There are bridging endplate osteophytes at multiple levels in the spin e, consistent with diffuse idiopathic skeletal hyperostosis (DISH). There is mild chronic height loss of multiple vertebral bodies. IMPRESSION: 1. Mild pulmonary edema. 2. Small pleural effusions. 3. Constrictive pericarditis. 4. Small sliding hiatal hernia. 5. Small volume of ascites. 6. Partially visualized left-sided hydronephrosis with mild kidney atrophy. Partially visualized alicja pelvic cyst versus hydronephrosis of right kidney. Reviewed, dictated and finalized at location B. LLITE INSTRUCTION FACILITATOR IMPRESSION: 1. Mild pulmonary edema. 2. Small pleural effusions. 3. Constrictive pericarditis. 4. Small sliding hiatal hernia. 5. Small volume of ascites. 6. Partially visualized left-sided hydronephrosis with mild kidney atrophy. Par tially visualized peripelvic cyst versus hydronephrosis of right kidney.
== END 2021-03-13 13:47 | disposition home or self-care (01) ==
LOC: ANHIMG 13:51
PROVIDERS: PCP Internal Medicine; Visit Provider Internal Medicine
DX: R06.02 Shortness of breath (principal); J90 Pleural effusion, not elsewhere classified; I31.9 Disease of pericardium, unspecified
CPT/HCPCS: 71250

== ENCOUNTER 2021-03-14 09:57 | Outpatient (CLI) | payer MEDICARE, SELFPAY ==
--- NOTE | ~2021-03-14 | US_ITS ---
EXAMINATION: US renal BI, US abdomen complete DATE: 03/14/2021 11:26 INDICATION: High serum creatinine TECHNIQUE: Multiple ultrasound grayscale images of the abdomen including the bilateral kidneys and bl adder were obtained. COMPARISON: CT dated 03/13/2021 FINDINGS: The pancreatic head and body are normal in appearance. The pancreatic tail is not visualized. Liver has normal echogenicity and contour, with a smooth surface. No liver lesion identified. No intrahepat ic biliary duct dilation suspected. Portal venous flow was seen in the hepatopetal, normal direction and has normal Doppler waveform. The visualized proximal to mid inferior vena cava is patent but appe ars dilated along with the central hepatic veins which could be seen in the setting of elevated right heart pressures. Bilateral pleural effusions at the lung bases. There is mild wall thickening of the gallbladder due to at least in part to incomplete distention. No cholelithiasis. Sonographic Hussein sign was reported as negative by the core inspector.The common bile duct measures 7 mm diameter which is at the upper limits of normal for age. Abdominal aorta is normal in caliber measuring 2.3 cm both pr oximally and distally. Portions of the mid abdominal aorta are obscured by shadowing bowel gas. Splee n is normal measuring 12.7 cm in maximal length. The right kidney measures 14.5 x 9.2 x 6.7 cm. The left kidney measures 12.8 x 5.6 x 7.2 cm. The kidn eys demonstrate normal echogenicity. 1 cm anechoic cyst at the mid right kidney. Bilateral hydronephr osis, severe on the left and moderate severity on the right. No stones identified. The bladder is di stended with mild trabeculation. The bladder is unable to be completely included within the single im age but measures at least 16.8 x 11.7 x 13.3 cm . Despite the prominent distention of the bladder the patient reported no large to urinate. Bilateral ureteral jets are visualized in the bladder. IMPRESSION: 1. Moderate right and severe left hydronephrosis with dilated trabeculated bladder demonstrate bilat eral ureteral jets. The constellation of findings suggests chronic outlet obstruction versus neurogen ic bladder as the etiology for the hydronephrosis. 2. Mild wall thickening of the bladder due at least in part to incomplete distention. No cholelithias is, gallbladder dilation or sonographic Hussein's on to suggest acute cholecystitis. Differential for gallbladder wall thickening would also include liver failure, renal failure, heart failure or other g eneralized edema forming states. 3. Dilation of the inferior vena cava and central hepatic veins suggesting elevated right heart press ures. 4. Bilateral pleural effusions. Reviewed, dictated and finalized at location A. TRONIC SYSTEMS SECURITY ASSESSMENT IMPRESSION: 1. Moderate right and severe left hydronephrosis with dilated trabeculated kathryn dder demonstrate bilateral ureteral jets. The constellation of findings suggest s chronic outlet obstruction versus neurogenic bladder as the etiology for the hydronephrosis. 2. Mild wall thickening of the bladder due at least in part to incomplete diste ntion. No cholelithiasis, gallbladder dilation or sonographic Hussein's on to rothman ggest acute cholecystitis. Differential for gallbladder wall thickening would a lso include liver failure, renal failure, heart failure or other generalized ed jose maria forming states. 3. Dilation of the inferior vena cava and central hepatic veins suggesting elev ated right heart pressures. 4. Bilateral pleural effusions.
== END 2021-03-14 09:58 | disposition home or self-care (01) ==
LOC: ANHIMG 09:59
PROVIDERS: PCP Internal Medicine; Visit Provider Internal Medicine
DX: R74.8 Abnormal levels of other serum enzymes (principal); R79.89 Other specified abnormal findings of blood chemistry; J90 Pleural effusion, not elsewhere classified
CPT/HCPCS: 76700; 76775

== ENCOUNTER 2021-03-21 10:15 | Outpatient (CLI) | payer MEDICARE, SELFPAY ==
--- NOTE | 2021-03-26 15:44 | WPDPFTINT ---
PFT Procedure Performed PFT Procedure Performed Spirometry with Pre/Post Bronchodilator Plethysmography (Lung Vol) Diffusing Cap (DLCO) Flow Vol Loop PFT Interpretation DOS: 03/21/2021 REQUESTING: Dr Chaudhary REASON FOR TESTING: Shortness of breath PULMONARY FUNCTION TESTS Results are reliable and reproducible Spirometry: Pre-bronchodilator FEV1 is 53% predicted, 1.64 L. FVC is 47% predicted. The FEV1/FVC ratio is 83% predicted which is normal. Using the slow vital capacity to calculate the FEV1/FVC ratio, airflow obstruction is present. There is a significant increase in flow with bronchodilator administration. There is a 15% increase in FVC which is equal to 200 ml. Lung volumes: The total lung capacity is 61%, consistent with mild restriction. The slow vital capacity measures in lung volumes is 59% which is higher than the forced vital capacity obtained in spirometry measurements. This indicates dynamic airway obstruction. The residual volume is 74% predicted, and the RV/TLC is 43% which is higher than expected, indicating air trapping. Airway resistance is increased, 258%. Diffusion: DLCO is 57%, moderately decreased. This corrects to 102% when adjusted for alveolar volume. Flow volume loop: Restrictive and obstructive patterns are both seen. IMPRESSION: Mild restriction and moderate obstructive ventilatory defect, good response to bronchodilator administration. Moderate air trapping is present. There is a moderate diffusion impairment. This is an overall lapping pattern consistent with 2 processes. This could represent asthma/COPD and ILD. Clinical correlation is recommended. Vivienne Smith MD
== END 2021-03-21 10:16 | disposition home or self-care (01) ==
LOC: ANHPFT 10:17
PROVIDERS: PCP Internal Medicine; Visit Provider Internal Medicine
DX: R06.02 Shortness of breath (principal)
CPT/HCPCS: 94060; 94726; 94729

== ENCOUNTER 2021-05-18 11:03 | Outpatient (CLI) | payer MEDICARE, SELFPAY ==
--- NOTE | ~2021-05-18 | XR_ITS ---
EXAMINATION: XR barium swallow modified DATE: 05/18/2021 12:13 INDICATION: Dysphagia. TECHNIQUE: The patient was given barium-containing material of multiple consistencies to swallow by t kasi speech pathologist while I performed fluoroscopy. Dose-area product was 1.28 Gy-cm2. FINDINGS: Oral Stage: Within functional limits Pharyngeal Phase: Within functional limits Cervical/Esophageal Stage: Within functional limits IMPRESSION: Modified esophagram findings as above. Please refer to the speech therapy report for spec [facility] recommendations. Reviewed, dictated and finalized at Location A. Reviewed, dictated and finalized at location A. MANAGER PUBLIC IMPRESSION: Modified esophagram findings as above. Please refer to the speech t herapy report for specific recommendations.
--- NOTE | 2021-05-18 12:44 | STOPEVAL ---
Thank you for referring Delroy Chou to [facility] [place] [facility] I agree with and certify that the following Modified Barium Swallow study. Referring Physician Date Attending Provider: Ameya Chaudhary MD Therapy Assessment Status Assessment Status Assessment Status Evaluation Outpatient Past Medical History Past Medical History Source of Past Medical History Patient Neurological History Hx Neurological Disorders No Significant History Cardiovascular History Hx Atrial Fibrillation Yes: CARDIOVERTED ONCE ~2018 Hx Congestive Heart Failure Yes Hx Hypercholesterolemia Yes Hx Hypertension Yes Hx Valve Replacement Yes: AORTIC VALVE REPLACEMENT 1999- MECHANICAL Hx Other Cardiac Disorders Yes: DR VERGARA Respiratory History Hx Bronchitis Yes: Patient reports episode of bronchitis 3 or 4 years ago. Gastrointestinal History Hx Gastrointestinal Disorders No Significant History Genitourinary History Hx Benign Prostatic Hyperplasia Yes Hx Other Genitourinary Disorders Yes: ELEVATED PSA, FREQUENT URINATION Musculoskeletal History Hx Musculoskeletal Disorders No Significant History Hematological History Hx Anemia Yes: WITH STOMACH ULCER Hx Other Hematological Disorders Yes: COUMADIN Endocrine History Hx Diabetes Yes: ORAL MEDS HEENT History Hx Tonsillectomy Yes: CHILD Integumentary History Hx Skin Disorders No Significant History Reproductive History Hx Reproductive Disorders No Significant History Psychosocial History Hx Psychiatric Disorders No Significant History Pain History History of Any Previous or Ongoing No Significant History Instance of Pain Anesthesia History Hx Anesthesia Reactions No Significant History Other History Hx Implanted Device Yes: AORTIC HEART VALVE Evaluation Information Problem Diagnosis Cough Onset 03/07 Cause Undetermined Subjective Information Patient stated he had an Query Text:As Reported By Patient/ episode of bronchitis three Family or four years ago and was coughing until he at a pineapple, which cleared the cough. Today he states that since February, he has had an agitated cough which he reports is caused by spicy foods but then stated that it is a random cough. He noted he has vocal hoarseness which
== END 2021-05-18 11:04 | disposition home or self-care (01) ==
LOC: ANHIMG 11:07
PROVIDERS: PCP Internal Medicine; Visit Provider Internal Medicine
DX: R13.10 Dysphagia, unspecified (principal); R05.9 Cough, unspecified
CPT/HCPCS: 92611

== ENCOUNTER 2021-07-04 10:48 | Outpatient (CLI) | payer MEDICARE, SELFPAY ==
--- NOTE | ~2021-07-04 | XR_ITS ---
EXAMINATION: XR ankle LT 2V DATE: 07/04/2021 11:17 INDICATION: Left ankle pain. TECHNIQUE: 2 views of left ankle were obtained. COMPARISON: None. FINDINGS: Bone alignment is normal. No fracture. There is mild midfoot osteoarthritis. There is an en thesophyte at plantar aspect of calcaneal tuberosity. Ankle soft tissue swelling is noted, medial wor se than lateral. IMPRESSION: 1. Mild polyarticular osteoarthritis. Reviewed, dictated and finalized at location B.
--- NOTE | ~2021-07-04 | XR_ITS ---
EXAMINATION: XR foot LT 2V DATE: 07/04/2021 11:17 INDICATION: Left foot pain. TECHNIQUE: 2 views of left foot were obtained. COMPARISON: None. FINDINGS: Bone alignment is normal. No fracture. Osteopenia is noted. There is mild osteoarthritis of some of the interphalangeal joints and midfoot joints. There is an enthesophyte at plantar aspect of calcaneal tuberosity. IMPRESSION: 1. Mild polyarticular osteoarthritis. Reviewed, dictated and finalized at location B.
[2021-07-04 11:05] LABS: Basophils Absolute Auto 0.1 K/mm3 (0.0-0.1); Basophils Percent Auto 0.8 % (0.2-1.2); Eosinophils Absolute Auto 0.1 K/mm3 (0-0.3); Eosinophils Percent Auto 1.3 % (0-4.4); Hemoglobin 16.4 g/dL (14.0-18.0); Immature Granulocyte Absolute 0.02 K/mm3 (0.00-0.031); Immature Granulocyte Percent A 0.3 % (0-0.5); Immature Platelet Fraction Pct 4.8 % (0.9-11.2); Lymphocytes Absolute Auto 0.58 K/mm3 (0.9-3.2); Lymphocytes Percent Auto 7.8 % (18.3-44.2); Mean Corpuscular HGB Conc 33.5 g/dl (32-36); Mean Corpuscular Hemoglobin 32.2 pg (26-34); Mean Corpuscular Volume 96.3 fl (80-100); Mean Platelet Volume 10.9 fl (7.4-10.4); Monocytes Absolute Auto 1.1 K/mm3 (0.1-0.6); Monocytes Percent Auto 15.4 % (2.6-8.5); Neutrophils Absolute Auto 5.5 K/mm3 (1.3-6.7); Neutrophils Percent Auto 74.4 % (45.5-73.1); Platelet Count Result 139 k/mm3 (150-375); Red Blood Count 5.09 M/mm3 (4.6-6.20); Red Cell Distribution Width 16.4 % (11.5-14.5); White Blood Count 7.4 K/mm3 (4.5-10.0)
[2021-07-04 11:17] LABS: Anion Gap 8 mmol/L (8-16); Blood Urea Nitrogen 26 mg/dL (9-20); CRP 4.8 mg/dL (<1.0); Calcium 9.2 mg/dL (8.4-10.2); Carbon Dioxide 23 mmol/L (22-30); Chloride 105 mmol/L (98-107); Estimated Glomerular Filt Rate > 60; Glucose 157 mg/dL (65-110); Potassium 4.5 mmol/L (3.4-5.0); Sodium 136 mmol/L (137-145); Uric Acid 7.2 mg/dL (3.5-8.5)
[2021-07-04 11:28] LABS: Erythrocyte Sedimentation Rate 19 mm/hr (0-20)
== END 2021-07-04 10:49 | disposition home or self-care (01) ==
PROVIDERS: PCP Internal Medicine; Visit Provider Internal Medicine
DX: M25.472 Effusion, left ankle (principal); I10 Essential (primary) hypertension; Z79.899 Other long term (current) drug therapy; M19.072 Primary osteoarthritis, left ankle and foot
CPT/HCPCS: 36415; 73600; 73620; 80048; 84550; 85025; 85055; 85652; 86140; 93971

== ENCOUNTER 2021-07-04 13:10 | Outpatient (CLI) | payer MEDICARE, SELFPAY ==
--- NOTE | ~2021-07-04 | US_ITS ---
EXAMINATION: US venous doppler [facility] EXAM DATE: 07/04/2021 14:13 INDICATION: M79.605 - Pain in left leg TECHNIQUE: Multiple grayscale, color flow and Doppler images of the left lower extremity deep venous system were obtained and reviewed. There is no prior study for comparison. FINDINGS: The left common femoral, femoral and profunda veins demonstrate normal color flow, respirat ory variation, augmentation and compressibility. Compressibility, color flow confirmed within the le ft popliteal, posterior tibial, peroneal, and greater saphenous veins. IMPRESSION: 1. No left lower extremity deep venous thrombosis. Reviewed, dictated and finalized at location A.
== END 2021-07-04 13:11 | disposition home or self-care (01) ==
LOC: ANHIMG 13:15
PROVIDERS: PCP Internal Medicine; Visit Provider Internal Medicine
DX: M79.605 Pain in left leg (principal); M79.89 Other specified soft tissue disorders
CPT/HCPCS: 93971

== ENCOUNTER 2022-03-23 08:13 | Outpatient (CLI) | payer MEDICARE, SELFPAY ==
--- NOTE | ~2022-03-23 | US_ITS ---
EXAMINATION: US arterial duplex LE DATE: 03/23/2022 09:04 INDICATION: Encounter for follow-up examination. TECHNIQUE: Segmental pressures and plethysmographic and Doppler waveforms of the brachial and lower e xtremity arteries were obtained. COMPARISON: None. FINDINGS: Right and left brachial artery pressures of 149 mm Hg and 157 mm Hg, respectively, are concordant (no rmal difference <= 30 mmHg). The right upper thigh pressure and below-knee pressures could not be measured due to inability to cuf f occlude the arteries. The lower thigh pressure index is 1.18. The right ankle-brachial index (GERARDO) is 1.14 (normal >= 0.9-1.0). The right great toe-brachial index (TBI) is 0.66 (normal >= 0.65). Arter ial Doppler waveforms are triphasic in common femoral artery and biphasic from superficial femoral ar hector to the ankle. The left thigh pressures and below-knee pressure could not be measured due to inability to cuff occlu de the arteries. The left GERARDO is 1.22. The left TBI is 0.50. Arterial Doppler waveforms are biphasic in common femoral artery, triphasic in superficial femoral artery, and biphasic in popliteal artery a nd at the ankle. IMPRESSION: 1. Mildly decreased left TBI and normal left GERARDO, consistent with left-sided arterial occlusive disea se. Note that GERARDO may be overestimated if arteries are calcified. Reviewed, dictated and finalized at location A. ER IN CHANCERY IMPRESSION: 1. Mildly decreased left TBI and normal left GERARDO, consistent with left-sided ar terial occlusive disease. Note that GERARDO may be overestimated if arteries are ca lcified.
== END 2022-03-23 08:14 | disposition home or self-care (01) ==
PROVIDERS: PCP Internal Medicine; Visit Provider Internal Medicine
DX: Z09 Encounter for follow-up examination after completed treatment for conditions other than malignant neoplasm (principal); R68.89 Other general symptoms and signs
CPT/HCPCS: 93925

== ENCOUNTER 2022-04-04 10:13 | Outpatient (CLI) | payer MEDICARE, SELFPAY ==
--- NOTE | ~2022-04-04 | XR_ITS ---
Clinical Indication: Cough PA and lateral views of the chest: Comparison: 04/14/2018 Findings: Moderate right pleural effusion is present. Left lung is clear. Cardiomediastinal silhouet te is stable, status post median sternotomy. Bones and soft tissues are unremarkable. Impression: Moderate right pleural effusion. Reviewed, dictated and finalized at location . ATTENDANT Impression: Moderate right pleural effusion.
== END 2022-04-04 10:14 | disposition home or self-care (01) ==
PROVIDERS: PCP Internal Medicine; Visit Provider Internal Medicine
DX: R05.9 Cough, unspecified (principal); R06.89 Other abnormalities of breathing; J90 Pleural effusion, not elsewhere classified
CPT/HCPCS: 71046

== ENCOUNTER 2022-04-04 11:59 | Outpatient (CLI) | payer MEDICARE, SELFPAY ==
--- NOTE | ~2022-04-04 | CT_ITS ---
Clinical Indication: Pleural effusion CT Scan of the Chest with Contrast: Technique: Contiguous sections were acquired throughout the chest after intravenous administration of 100 cc of Omnipaque 350. Dose reduction technique was used on this scan by utilizing automated expos ure control and iterative reconstruction technique. The dose-length product (DLP) was 559.49 mGy-cm. COMPARISON: 03/13/2021 Findings: There is no evidence of any significant mediastinal, hilar or axillary lymphadenopathy. There is no f illing defect in the pulmonary arterial tree to suggest pulmonary embolus. There is no evidence of ao rtic dissection or aneurysm. Extensive pericardial calcification is stable from prior exam. No perica rdial effusion. Moderate right pleural effusion is present, with extensive right lower lobe atelectasis and partial r ight middle lobe atelectasis. There is minimal interstitial thickening at the left lung base, likely representing minimal interstitial edema. Images through the upper abdomen reveal partially imaged left hydronephrosis versus cyst. Minimal per ihepatic ascites present. Impression: Moderate right pleural effusion with extensive right lower lobe atelectasis and partial right middle lobe atelectasis. Minimal interstitial edema at the left lung base. Partially imaged left hydronephrosis versus cyst, similar to prior exam. Extensive pericardial calcification is unchanged. Reviewed, dictated and finalized at location . NESS INTERN Impression: Moderate right pleural effusion with extensive right lower lobe atelectasis and partial right middle lobe atelectasis. Minimal interstitial edema at the left lung base. Partially imaged left hydronephrosis versus cyst, similar to prior exam. Extensive pericardial calcification is unchanged.
[2022-04-04 12:25] LABS: Estimated Glomerular Filt Rate > 60
== END 2022-04-04 12:00 | disposition home or self-care (01) ==
LOC: ANHIMG 12:00
PROVIDERS: PCP Internal Medicine; Visit Provider Internal Medicine
DX: J90 Pleural effusion, not elsewhere classified (principal)
CPT/HCPCS: 71046; 71260; Q9967

== ENCOUNTER 2022-04-09 11:58 | Outpatient (CLI) | payer MEDICARE, SELFPAY ==
--- NOTE | ~2022-04-09 | XR_ITS ---
Clinical Indication: Cough PA and lateral views of the chest: Comparison: 04/04/2022 Findings: There is mild bibasilar interstitial prominence, similar to prior exam. Stable right pleura l effusion.. Cardiomediastinal silhouette is stable. Bones and soft tissues are unremarkable. Impression: Stable probable small right pleural effusion. Mild bibasilar residual prominence. Correlate for chronic interstitial disease versus interstitial ed jose maria. Reviewed, dictated and finalized at location . K CUTTER Impression: Stable probable small right pleural effusion. Mild bibasilar residual prominence. Correlate for chronic interstitial disease versus interstitial edema.
== END 2022-04-09 11:59 | disposition home or self-care (01) ==
PROVIDERS: PCP Internal Medicine; Visit Provider Internal Medicine
DX: R05.9 Cough, unspecified (principal); J90 Pleural effusion, not elsewhere classified
CPT/HCPCS: 71046

== ENCOUNTER 2022-05-25 09:30 | Outpatient (CLI) | payer MEDICARE, SELFPAY ==
--- NOTE | ~2022-05-25 | XR_ITS ---
XR chest 2V DATE: 05/25/2022 09:58 INDICATION: Cough for one month. TECHNIQUE: PA and lateral views COMPARISON: 04/09/2022 2 view chest FINDINGS: There is opacification of the lower half of the right hemithorax due to a combination of pl eural effusion and right lower lung atelectasis/infiltrate, The lungs otherwise appear clear. Minimal left pleural effusion. Heart size appears within normal range. There is inferior pericardial calcification. Is aortic calcif ication, ectasia and tortuosity. Degenerative spurring of the thoracic and lumbar spine. Prominent osteoarthritis of the left glenohum eral joint.. IMPRESSION: Opacification of lower half of right hemithorax due to combination of pleural effusion an d right lower lung infiltrate/atelectasis Very small left pleural effusion Cardiomegaly, aortic atherosclerosis Reviewed, dictated and finalized at location B. RVISOR FILLING AND PACKING IMPRESSION: Opacification of lower half of right hemithorax due to combination of pleural effusion and right lower lung infiltrate/atelectasis Very small left pleural effusion Cardiomegaly, aortic atherosclerosis
[2022-05-25 10:05] LABS: Anion Gap 9 mmol/L (8-16); Blood Urea Nitrogen 24 mg/dL (9-20); Calcium 9.3 mg/dL (8.4-10.2); Carbon Dioxide 27 mmol/L (22-30); Chloride 100 mmol/L (98-107); Estimated Glomerular Filt Rate > 60; Glucose 145 mg/dL (65-110); Potassium 4.7 mmol/L (3.4-5.0); Sodium 136 mmol/L (137-145)
== END 2022-05-25 09:31 | disposition home or self-care (01) ==
LOC: ANHLAB 09:32
PROVIDERS: PCP Internal Medicine; Visit Provider Internal Medicine
DX: R05.9 Cough, unspecified (principal); J90 Pleural effusion, not elsewhere classified; I10 Essential (primary) hypertension; Z79.899 Other long term (current) drug therapy; I51.7 Cardiomegaly
CPT/HCPCS: 36415; 71046; 80048

== ENCOUNTER 2022-07-24 13:17 | Outpatient (CLI) | payer MEDICARE, SELFPAY ==
--- NOTE | ~2022-07-24 | XR_ITS ---
EXAMINATION: XR chest 1V Exam Date/Time: 07/24/2022 13:54 CDT HISTORY: PREPROCEDURAL CARDIO EXAM. HAS FLUID ON LUNG Comparison: 05/25/2022. RESULT: Lines, tubes, and devices: Fractured inferior sternotomy wire, in stable position. Lungs and pleura: Stable reticular opacities. Stable moderate right and trace left costophrenic angl e blunting. Bibasilar atelectasis. Cardiomediastinal silhouette: Stable. Other: No acute osseous or upper abdominal finding. IMPRESSION: Stable interstitial edema. Stable moderate right and small left pleural effusions. Reviewed, dictated and finalized at location K. IMPRESSION: Stable interstitial edema. Stable moderate right and small left pleural effusio ns.
== END 2022-07-24 13:18 | disposition home or self-care (01) ==
PROVIDERS: PCP Internal Medicine
DX: I31.1 Chronic constrictive pericarditis (principal); Z01.810 Encounter for preprocedural cardiovascular examination; J90 Pleural effusion, not elsewhere classified
CPT/HCPCS: 71045

== ENCOUNTER 2022-07-25 13:57 | Outpatient (CLI) | payer MEDICARE, SELFPAY ==
--- NOTE | ~2022-07-25 | CT_ITS ---
Clinical Indication: Constrictive pericarditis CT Scan of the Chest and Abdomen without Contrast: Technique: Contiguous sections were acquired throughout the chest and abdomen, without IV contrast ad ministration. Dose reduction technique was used on this scan by utilizing automated exposure control and iterative reconstruction technique. The dose-length product (DLP) was 1003.54 mGy-cm. COMPARISON: 04/04/2022 Findings: Shotty mediastinal lymph nodes are similar to prior exam. There are atherosclerotic calcifications of the aorta and coronary vessels. Extensive pericardial calcification is unchanged. No pericardial eff usion. Ascending aorta measures 4.4 cm in diameter. Moderate to large right pleural effusion is again present, with extensive right lower lobe atelectasi s and partial right middle lobe atelectasis. Minimal layering left pleural effusion is present. There is minimal patchy haziness the left lung base, similar to prior exam. Probable micronodular contour of the liver. The spleen, pancreas, gallbladder, and adrenal glands are within normal limits. There is moderate left hydronephrosis and mild right hydronephrosis. There are atherosclerotic calcifications of the aorta. No lymphadenopathy. Visualized bowel loops are unremarkable. Small fat-containing umbilical hernia noted. Small amount of abdominal ascites. DISH of the thoracic spine noted. Impression: Extensive pericardial calcification is unchanged, and could reflect constrictive pericarditis. Ascending aorta measures 4.4 cm in diameter. Moderate to large right pleural effusion with partial right middle and right lower lobe atelectatic change. Minimal layering left pleural effusion. Probable cirrhotic change of the liver with small amount of abdominal ascites. Moderate left hydronephrosis and mild right hydronephrosis. Reviewed, dictated and finalized at location . Impression: Extensive pericardial calcification is unchanged, and could reflect constrictiv e pericarditis. Ascending aorta measures 4.4 cm in diameter. Moderate to large right pleural effusion with partial right middle and right l ower lobe atelectatic change. Minimal layering left pleural effusion. Probable cirrhotic change of the liver with small amount of abdominal ascites. Moderate left hydronephrosis and mild right hydronephrosis.
== END 2022-07-25 13:58 | disposition home or self-care (01) ==
PROVIDERS: PCP Internal Medicine
DX: I31.1 Chronic constrictive pericarditis (principal); Z01.810 Encounter for preprocedural cardiovascular examination; J90 Pleural effusion, not elsewhere classified
CPT/HCPCS: 71250; 74150

== ENCOUNTER 2022-07-30 16:00 | Observation (INO) | payer MEDICARE, SELFPAY ==
[2022-07-27 15:25] VITALS: BMI 29.7
[2022-07-30] VITALS (22 sets, daily range): BP systolic 126–164; BP diastolic 72–107; PULSE 67–83; RESP 16–31; TEMP 36.9–37.1; O2SAT 86–97; BMI 29.2
--- NOTE | ~2022-07-30 | XR_ITS ---
EXAMINATION: [id number] DATE: 07/30/2022 17:55 INDICATION: Right pleural effusion post right thoracentesis TECHNIQUE: PA and lateral views of the chest were obtained. COMPARISON: Chest radiograph dated 07/30/2022 FINDINGS: Opacities in the bilateral mid and lower lung zones including small bilateral pleural effusions, righ t greater than left. No pneumothorax. Mild cardiomegaly. Median sternotomy wires and prior aortic jhonathan ve repair. Prominent curvilinear pericardial calcifications which could predispose towards restrictiv e pericarditis. There are bridging osteophytes at multiple levels in the spine, consistent with diffu se idiopathic skeletal hyperostosis (DISH). IMPRESSION: 1. No pneumothorax. 2. Small bilateral pleural effusions, right greater than left with associated opacities in the mid an d lower lung zones which could represent atelectasis and/or pneumonia. 3. Pericardial calcifications which could result in restricted pericarditis. Reviewed, dictated and finalized at location A. IMPRESSION: 1. No pneumothorax. 2. Small bilateral pleural effusions, right greater than left with associated o pacities in the mid and lower lung zones which could represent atelectasis and/ or pneumonia. 3. Pericardial calcifications which could result in restricted pericarditis.
--- NOTE | ~2022-07-30 | US_ITS ---
EXAMINATION: US thoracentesis DATE: 07/30/2022 18:16 INDICATION: Right pleural effusion TECHNIQUE: The procedure and its risks and benefits were discussed with the patient. Potential risks discussed included bleeding, infection, and pneumothorax. The patient understood the risks and agreed to proceed. The skin was prepped and draped in sterile fashion. 1% lidocaine was used for local anes thesia. Under ultrasound guidance, a 5 Fr catheter with trochar was advanced into the right pleural e ffusion. Fluid was aspirated. The catheter was removed, and a dressing was applied. There were no imm ediate complications. FINDINGS: Ultrasound images demonstrate a large sized right pleural effusion and the catheter within the fluid. IMPRESSION: 1. Successful ultrasound-guided thoracentesis yielding 1100 mL of slightly turbid murray-colored flui d. Reviewed, dictated and finalized at location A. IMPRESSION: 1. Successful ultrasound-guided thoracentesis yielding 1100 mL of slightly tur bid murray-colored fluid.
--- NOTE | ~2022-07-30 | XR_ITS ---
EXAMINATION: XR chest 2V DATE: 07/30/2022 17:09 INDICATION: Pleural effusion for planned thoracentesis. TECHNIQUE: PA and lateral views of the chest were obtained. COMPARISON: Chest CT dated 07/25/2022 FINDINGS: Opacities in the right mid to lower lung zone consistent with moderate to large right pleural effusio n and associated compressive atelectasis. Mild increased interstitial pattern at the left lower lung zone corresponding with mild pulmonary edema on prior CT. Very small left pleural effusion. No pneumo thorax. Cardiomegaly. Pericardial calcification. Median sternotomy wires and mediastinal surgical cli ps are seen, likely from prior coronary artery bypass grafting. Moderate thoracic and lumbar spondylo sis with bridging osteophytes at multiple levels consistent with diffuse idiopathic skeletal hyperost osis (DISH). Severe left glenohumeral osteoarthritis. IMPRESSION: 1. Moderate to large right pleural effusion with associated compressive atelectasis in the mid to low er right lung. 2. Mild pulmonary edema. Left lung base with very small left pleural effusion. 3. Cardiomegaly with pericardial calcification which could be seen with restrictive pericarditis. Reviewed, dictated and finalized at location A. IMPRESSION: 1. Moderate to large right pleural effusion with associated compressive atelect asis in the mid to lower right lung. 2. Mild pulmonary edema. Left lung base with very small left pleural effusion. 3. Cardiomegaly with pericardial calcification which could be seen with restric tive pericarditis.
[2022-07-30 09:11] LABS: Basophils Absolute Auto 0.1 K/mm3 (0.0-0.1); Eosinophils Absolute Auto 0.2 K/mm3 (0-0.3); Hematocrit 47.5 % (42.0-52.0); Hemoglobin 16.1 g/dL (14.0-18.0); Immature Granulocyte Absolute 0.02 K/mm3 (0.00-0.031); Immature Granulocyte Percent A 0.3 % (0-0.5); Lymphocytes Absolute Auto 0.36 K/mm3 (0.9-3.2); Lymphocytes Percent Auto 4.5 % (18.3-44.2); Mean Corpuscular HGB Conc 33.9 g/dl (32-36); Mean Corpuscular Hemoglobin 34.9 pg (26-34); Mean Platelet Volume 10.5 fl (7.4-10.4); Monocytes Absolute Auto 0.9 K/mm3 (0.1-0.6); Monocytes Percent Auto 10.8 % (2.6-8.5); Neutrophils Absolute Auto 6.5 K/mm3 (1.3-6.7); Neutrophils Percent Auto 81.4 % (45.5-73.1); Platelet Count Result 161 k/mm3 (150-375); Red Blood Count 4.61 M/mm3 (4.6-6.20); Red Cell Distribution Width 13.8 % (11.5-14.5)
[2022-07-30 09:18] LABS: Anion Gap 9 mmol/L (8-16); Blood Urea Nitrogen 24 mg/dL (9-20); Calcium 9.4 mg/dL (8.4-10.2); Carbon Dioxide 22 mmol/L (22-30); Chloride 105 mmol/L (98-107); Estimated CRCL calculation 59 ml/min; Estimated Glomerular Filt Rate > 60; Glucose 142 mg/dL (65-110); Potassium 4.4 mmol/L (3.4-5.0); Sodium 136 mmol/L (137-145)
[2022-07-30 09:20] LABS: INR 1.3; Prothrombin Time 16.8 Seconds (11.1-14.7)
--- NOTE | 2022-07-30 09:38 | SUR.PREOP ---
DR. VERGARA TO BEDSIDE TO SEE PT. AWARE OF COUGH.
--- NOTE | 2022-07-30 09:51 | MISC_ITS ---
This report was moved to the correct visit on 08/03/2022. Original report was signed by Reid Bush MD on 07/30/22 0951. 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 paroxysmal atrial fibrillation Present Complaint: shortness of breath Procedure to be performed/Plan: right and left heart catheterization Allergies Allergy/AdvReac Type Severity Reaction Status Date / Time Penicillins Allergy Intermediate Rash Verified 07/30/22 08:54 Home Medications Medication Instructions Recorded Confirmed Type sotalol 80 mg tablet 80 mg PO BID 05/05/19 07/27/22 History warfarin 4 mg tablet 4 mg PO DAILY 05/05/19 07/27/22 History aspirin 81 mg tablet,delayed 81 mg PO DAILY 08/17/19 07/27/22 History release (Adult Low Dose Aspirin) cholecalciferol (vitamin D3) 50 50 mcg PO DAILY 06/23/20 07/27/22 History mcg (2,000 unit) capsule folic acid-vit B6-vit B12 2.2 See Rx Instructions .Route 07/21/21 07/27/22 Rx mg-25 mg-0.5 mg tablet (Folplex) .COMPLEX #90 tabs potassium chloride 10 mEq See Rx Instructions .Route 07/21/21 07/27/22 Rx tablet,extended .COMPLEX #90 tabs release(part/cryst) (Klor-Con M) mirabegron 25 mg tablet,extended See Rx Instructions .Route .COMPLEX 12/06/21 07/27/22 History release 24 hr (Myrbetriq) lisinopril 20 mg tablet 20 mg PO BID #180 tabs 03/20/22 07/27/22 Rx tamsulosin 0.4 mg capsule See Rx Instructions .Route 04/19/22 07/27/22 Rx .COMPLEX #90 caps hydralazine 25 mg tablet 25 mg PO TID #90 tabs 05/25/22 07/27/22 Rx furosemide 20 mg tablet 20 mg PO QAM 05/30/22 07/27/22 History atorvastatin 80 mg tablet See Rx Instructions .Route 06/11/22 07/27/22 Rx .COMPLEX #90 tabs metformin 500 mg tablet See Rx Instructions .Route 06/11/22 07/27/22 Rx .COMPLEX #180 tabs pantoprazole 40 mg tablet,delayed See Rx Instructions .Route 06/13/22 07/27/22 Rx release .COMPLEX #90 tabs ferrous sulfate 325 mg (65 mg See Rx Instructions .Route 07/04/22 07/27/22 Rx iron) tablet .COMPLEX #90 tabs cyanocobalamin (vitamin B-12) 1,000 mcg PO QAM 07/27/22 07/27/22 History 1,000 mcg capsule Sedation/Anesthesia: No previous sedation/anesthesia problems (including family history). [facility] Past Medical History Medical History (Updated 06/20/22 @ 08:43 by Karine Moran, [facility]) A-fib Abnormal CXR Acute allergic conjunctivitis of left eye Blepharitis of left eye BMI 29.0-29.9,adult BMI 30.0-30.9,adult BMI 31.0-31.9,adult BMI 32.0-32.9,adult BMI 34.0-34.9,adult BMI 35.0-35.9,adult BMI 36.0-36.9,adult BMI 37.0-37.9, adult BPH (benign prostatic hyperplasia) Color vision deficiency Cough Cough variant asthma DM w/o complication type II Dry cough Dysphagia Elevated alkaline phosphatase level Elevated serum creatinine Encounter for Medicare annual wellness exam Encounter for routine adult health examination with abnormal findings Encounter for routine adult health examination without abnormal findings Fatigue Follow up Foot pain, left Hypervolemia Impacted cerumen of right ear Impaired functional mobility, balance, gait, and endurance Iron deficiency anemia Mixed hyperlipidemia Nocturia Nummular eczema Overactive bladder Pain and swelling of left lower extremity Pericarditis Plantar fasciitis Skin lesion SOB (shortness of breath) Symptom involving bladder URI (upper respiratory infection) UTI (urinary tract infection) Vitamin B12 deficiency Vitamin D deficiency Surgic
--- NOTE | 2022-07-30 11:02 | OP_ITS ---
This report was moved to the correct visit on 08/03/2022. Original report was signed by Reid Bush MD on 07/30/22 1102. ADDENDUM during the coronary angiograms the leaflets of the [place]'s mechanical prosthesis were nicely visualized and appeared to be unremarkable in appearance and exhibit excellent systolic excursion. Reid Bush MD [facility] Addendum Documented By: Reid Bush MD 07/30/221103 Addendum Signed By: <Electronically signed by Reid Bush MD> 110 Cardiac Cath Procedure Note Date of procedure:: 07/30/22 Performing physician:: Reid Bush MD Indication:: Evaluation for constrictive pericarditis Brief clinical history:: this is a 72-year-old man with history of valvular heart disease aortic valve replacement with a mechanical prosthesis 22 years ago and history of atrial fibrillation. He has been found to have increasing shortness of breath, lower extremity edema and a right pleural effusion. Cardiac MRI has demonstrated evidence of pericardial constriction. Procedure Procedure performed:: Right heart catheterization left heart catheterization Sedation/Medication given:: no sedation Access site:: right femoral artery, right femoral vein Estimated blood loss:: 25 cc Procedure note:: patient was brought to the cardiac catheterization lab in the postabsorptive state. Oxygen saturation on room air was 88% severe was placed on 4 L nasal cannula oxygen for this procedure. Saturations were maintained 93-94% during the procedure. the right femoral triangle was prepared and draped in the usual sterile fashion. Using the modified Seldinger technique a 7 Nigerian sheath was placed into the femoral vein and a 5 Nigerian sheath into the femoral artery. Following this I used a balloon tip [place] catheter to measure right-sided hemodynamics, inject thermodilution cardiac outputs and sampled mixed venous saturation. Following this the [place] catheter was removed. The standard 5 Nigerian FL4 catheter was then used to engage and inject the left coronary artery in multiple projections a 5 Nigerian JR4 catheter was used to engage inject the right coronary artery in multiple projections. The patient has a mechanical Saint Jimbo aortic valve prosthesis and therefore I did not cross the valve and measure left ventricular hemodynamics. An angiogram was done of the femoral artery through the sheath after which time it was determined the patient would be brought to the holding area for manual sheath removal. The procedure was well tolerated and uncomplicated. 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 Findings:: Hemodynamics: Right atrial pressure is 22 mmHg with a Y descent down to 10 mmHg. Right ventricle was 90-110 systolic diastolic pressure 4 mmHg end- diastolic pressure 24. Pulmonary artery pressure 95-110 systolic /diastolic pressure 45. Pulmonary capillary wedge pressure 46. Central aortic pressure is 148 over 64. Thermodilution cardiac output is 5.2 liters/minute giving an index of 2.5. The left main coronary artery is medium in caliber and patent. The LAD is a medium caliber vessel extending down to the cardiac apex. The LAD and its branches have minimal luminal irregularities but no angiographically significant disease is identified. The circumflex is a medium caliber artery and is dominant to the posterior circulation the circumflex, marginal posterior branches are free of significant lesions. The right coronary artery is small to medium in caliber is non dominant giving rise to RV branches and is angiographically free of disease. Conclusion:: 1.
[2022-07-30] MEDS: FUROSEMIDE INJ 40 MG/4 ML VIAL 20 MG IV PUSH ×2 (14:30→16:25)
--- NOTE | 2022-07-30 16:48 | PM.IMHP ---
H&P: HPI History of Present Illness Date/Time: 07/30/22 16:48 Chief Complaint: Shortness of breath Narrative: This is a 72-year-old man with history of valvular heart disease aortic valve replacement with a mechanical prosthesis 22 years ago and history of atrial fibrillation. He has been found to have increasing shortness of breath, lower extremity edema and a right pleural effusion. Cardiac MRI has demonstrated evidence of pericardial constriction. He presented today for elective R/LHC as part of work up for possible pericardectomy at [facility] with Dr. Mendez. His right heart hemodynamics demonstrated severe pulmonary hypertension with very high RA pressures and prominent Y descent consistent with pericardial constriction. Cardiac output is preserved. Following his procedure he continued to require oxygen despite lasix administration. Because of ongoing oxygen requirement, we will admit him to the hospital for continued observation and he will undergo thoracentesis that was planned as an outpatient on Saturday. Review of Systems Review of Systems: All systems reviewed & are unremarkable except as noted in HPI and below PMFSH Past Medical History Medical History A-fib Abnormal CXR Acute allergic conjunctivitis of left eye Blepharitis of left eye BMI 29.0-29.9,adult BMI 30.0-30.9,adult BMI 31.0-31.9,adult BMI 32.0-32.9,adult BMI 34.0-34.9,adult BMI 35.0-35.9,adult BMI 36.0-36.9,adult BMI 37.0-37.9, adult BPH (benign prostatic hyperplasia) Color vision deficiency Cough Cough variant asthma DM w/o complication type II Dry cough Dysphagia Elevated alkaline phosphatase level Elevated serum creatinine Encounter for Medicare annual wellness exam Encounter for routine adult health examination with abnormal findings Encounter for routine adult health examination without abnormal findings Fatigue Follow up Foot pain, left Hypervolemia Impacted cerumen of right ear Impaired functional mobility, balance, gait, and endurance Iron deficiency anemia Mixed hyperlipidemia Nocturia Nummular eczema Overactive bladder Pain and swelling of left lower extremity Pericarditis Plantar fasciitis Skin lesion SOB (shortness of breath) Symptom involving bladder URI (upper respiratory infection) UTI (urinary tract infection) Vitamin B12 deficiency Vitamin D deficiency Surgical History Surgical History Aortic valve replaced History of tonsillectomy Family History Family History Mother Hypertension Social History Social History Smoking status: Never smoker Second hand tobacco smoke exposure: No Alcohol intake: current Drinks per week: 14 Substance use: never Substance use type: does not use Lack of Transportation: No Lack of Food: Never True Current Housing: I Have Housing Concerned About Future Housing: No Difficulty Paying Gas/Electric Bills: No Difficulty Paying for Meds: No Currently Unemployed: No Education: Bachelor's Degree Difficulty w/ Childcare or Family Care: No Living arrangements: with family Additional living arrangements comments: Gender identity (if verbalized by the patient): Male Sexual Orientation (if Verbalized by the Patient): Straight or Heterosexual Spiritual care concerns: No Meds Home Medications and Allergies Home Medications Medication Instructions Recorded Confirmed Type sotalol 80 mg tablet 80 mg PO BID 05/05/19 07/27/22 History warfarin 4 mg tablet 4 mg PO DAILY 05/05/19 07/27/22 History aspirin 81 mg tablet,delayed 81 mg PO DAILY 08/17/19 07/27/22 History release (Adult Low Dose Aspirin) cholecalciferol (vitamin D3) 50 50 mcg PO DAILY 06/23/20 07/27/22 History mcg (2,000 unit) capsule folic acid-vit B6-vit B12 2.2 Se
--- NOTE | 2022-07-30 17:00 | SUR.PHASEII ---
DOWN VIA WC TO RADIOLOGY FOR CXR AND TO US FOR THORACENTESIS. ON 2L NC.
--- NOTE | 2022-07-30 17:45 | SUR.PHASEII ---
REPORT CALLED TO DINORAH MORALES ON MED/TELE. PT. IS TO BE ADMITTED TO MED/TELE ROOM 340 AFTER CXR AND THORACENTESIS COMPLETE. OFF CERTIFIED SURGICAL TECHNICIAN AT 1700 TO TESTING. , JORGE, UPDATED.
[2022-07-30 18:16] LABS: pH Pleural Fluid 7.471 (7.210-7.500)
[2022-07-30 18:34] LABS: Basophils Absolute Auto 0.1 K/mm3 (0.0-0.1); Eosinophils Absolute Auto 0.1 K/mm3 (0-0.3); Eosinophils Percent Auto 1.1 % (0-4.4); Hematocrit 49.2 % (42.0-52.0); Hemoglobin 16.3 g/dL (14.0-18.0); Immature Granulocyte Absolute 0.02 K/mm3 (0.00-0.031); Immature Granulocyte Percent A 0.3 % (0-0.5); Lymphocytes Absolute Auto 0.35 K/mm3 (0.9-3.2); Lymphocytes Percent Auto 4.4 % (18.3-44.2); Mean Corpuscular HGB Conc 33.1 g/dl (32-36); Mean Corpuscular Hemoglobin 34.5 pg (26-34); Mean Platelet Volume 10.5 fl (7.4-10.4); Monocytes Absolute Auto 0.9 K/mm3 (0.1-0.6); Monocytes Percent Auto 10.8 % (2.6-8.5); Neutrophils Absolute Auto 6.6 K/mm3 (1.3-6.7); Neutrophils Percent Auto 82.4 % (45.5-73.1); Platelet Count Result 162 k/mm3 (150-375); Red Blood Count 4.73 M/mm3 (4.6-6.20); Red Cell Distribution Width 13.8 % (11.5-14.5)
[2022-07-30 18:40] LABS: Anion Gap 8 mmol/L (8-16); Blood Urea Nitrogen 25 mg/dL (9-20); Calcium 9.4 mg/dL (8.4-10.2); Carbon Dioxide 28 mmol/L (22-30); Chloride 101 mmol/L (98-107); Estimated CRCL calculation 59 ml/min; Estimated Glomerular Filt Rate > 60; Glucose 124 mg/dL (65-110); Potassium 4.6 mmol/L (3.4-5.0); Sodium 137 mmol/L (137-145)
[2022-07-30 20:32] LABS: Glucose Point of Care 161 mg/dl (65-105)
[2022-07-30] MEDS: SOTALOL HCL 80 MG TABLET PO (20:54)
[2022-07-30] MEDS: lisinopriL 20 MG TABLET PO (20:54)
[2022-07-30] MEDS: hydrALAZINE HCL 25 MG TABLET PO (20:54)
[2022-07-30 21:38] LABS: Appearance Pleural Fluid Cloudy (Clear); Color Pleural Fluid Yellow (Colorless); Pleural fluid source Pleural fluid
[2022-07-30 21:39] LABS: Lymphocytes Pleural Fluid 30 %; Monocytes Pleural Fluid 70 %; Neutrophils Pleural Fluid 0 % (0-25)
[2022-07-31] VITALS (8 sets, daily range): BP systolic 150; BP diastolic 77; PULSE 63–85; RESP 20; TEMP 36.9; O2SAT 93–95
--- NOTE | 2022-07-31 | ECHO_ITS ---
Patient Info Name: Delroy Chou Age: 72 years : 1950 Gender: Male Ht: 70 in Wt: 203 lbs BSA: 2.15 m2 HR: 73 bpm BP: 150 / 77 mmHg Heart Rhythm: Sinus Rhythm Technical Quality: Fair Exam Date: 07/31/2022 10:22 AM Exam Location: [facility] Patient Status: Outpatient Admit Date: 07/30/2022 Staff Ordering Physician: Yvonne Jaquez Weed Sprayer: Bri Gaspar RDCS Attending Provider: July Carey PA-C Referring Physician: Gisele MCKINNEY; Exam Type: CA echo doppler color flow Study Info Indications - constrictive pericarditis Complete two-dimensional, color flow and Doppler transthoracic echocardiogram is performed. Summary 1. Complete two-dimensional, color flow and Doppler transthoracic echocardiogram is performed. 2. There is moderate bioprosthetic aortic valve stenosis with a peak velocity of 262 cm/s, mean gradient of 12 mmHg, and aortic valve area of 0.6 cm2. I do not think the Valve area is as severely stenotic as calculated. 3. There is mild regurgitation of the bioprosthetic aortic valve. 4. The mitral valve has thickened leaflets and calcified annulus. 5. There is mild tricuspid valve regurgitation. 6. Severe pulmonary hypertension, estimated pulmonary arterial systolic pressure is 73 mmHg. 7. Left ventricular chamber dimension is normal. 8. Left ventricular systolic function is normal, estimated at 60-65%. 9. There is mildly increased left ventricular wall thickness. 10. The left ventricular diastolic function is abnormal. 11. Right ventricular chamber dimension is severely enlarged. 12. Right ventricular systolic function is reduced. 13. Dilated inferior vena cava with <50% collapse upon inspiration consistent with elevated right atrial pressure, 15 mmHg. Left Ventricle Left ventricular chamber dimension is normal. Left ventricular systolic function is normal, estimated at 60-65%. There is mildly increased left ventricular wall thickness. The left ventricular diastolic function is abnormal. Right Ventricle Right ventricular chamber dimension is severely enlarged. Right ventricular systolic function is reduced. Left Atria Left atrial chamber dimension is moderately enlarged. Right Atria Right atrial chamber dimension is severely enlarged. Atrial Septum Intact interatrial septum visualized by color flow imaging. Aortic Valve The bioprosthetic aortic valve is not well visualized. There is moderate bioprosthetic aortic valve stenosis with a peak velocity of 262 cm/s, mean gradient of 12 mmHg, and aortic valve area of 0.6 cm2. I do not think the Valve area is as severely stenotic as calculated. There is mild regurgitation of the bioprosthetic aortic valve. Pulmonic Valve The pulmonic valve is normal. There is no pulmonic valve stenosis. There is trace pulmonic regurgitation. Mitral Valve The mitral valve has thickened leaflets and calcified annulus. There is no mitral valve stenosis. There is trace mitral valve regurgitation. Tricuspid Valve The tricuspid valve leaflets are normal. There is no significant tricuspid valve stenosis. There is mild tricuspid valve regurgitation. Severe pulmonary hypertension, estimated pulmonary arterial systolic pressure is 73 mmHg. Inferior Vena Cava Dilated inferior vena cava with <50% collapse upon inspiration consistent with elevated right atrial pressure, 15 mmHg. Aorta The aortic root size at the sinus of Valsalva is normal. There is moderate aortic atherosclerosis. Left Ventricular Outflow Tract
[2022-07-31] MEDS: hydrALAZINE HCL 25 MG TABLET PO (06:23)
[2022-07-31 08:30] LABS: Glucose Point of Care 115 mg/dl (65-105)
[2022-07-31] MEDS: CYANOCOBALAMIN 1,000 MCG TABLET 1000 MCG PO (09:39)
[2022-07-31] MEDS: metFORMIN HCL 500 MG TABLET PO (09:39)
[2022-07-31] MEDS: lisinopriL 20 MG TABLET PO (09:39)
[2022-07-31] MEDS: FERROUS SULFATE 324 MG TABLET PO (09:39)
[2022-07-31] MEDS: PANTOPRAZOLE 40 MG TABLET PO (09:39)
[2022-07-31] MEDS: CHOLECALCIFEROL 1,000 UNITS TABLET 2000 UNITS PO (09:39)
[2022-07-31] MEDS: FUROSEMIDE 20 MG TABLET PO (09:39)
[2022-07-31] MEDS: ATORVASTATIN 40 MG TABLET 80 MG PO (09:39)
[2022-07-31] MEDS: ASPIRIN 81 MG ENTERIC TABLET PO (09:39)
[2022-07-31] MEDS: POTASSIUM CHLORIDE 10 MEQ TABLET.ER PO (09:40)
[2022-07-31] MEDS: TAMSULOSIN HCL 0.4 MG CAPSULE PO (09:40)
[2022-07-31] MEDS: SOTALOL HCL 80 MG TABLET PO (09:40)
--- NOTE | 2022-07-31 09:40 | PM.DS ---
DS: Admitting Diagnosis Discharge Date 07/31/2022 Admitting Diagnosis Congestive heart failure Acute hypoxic respiratory failure DS: Discharge Diagnosis Discharge Diagnosis (1) Congestive heart failure: Qualifiers: Heart failure type: unspecified Heart failure chronicity: chronic Qualified Code(s): I50.9 - Heart failure, unspecified Code(s): I50.9 - Heart failure, unspecified Status: Acute DS: Summary Hospital Course Hospital Course: This is a 72-year-old man with history of valvular heart disease with aortic valve replacement with a mechanical prosthesis 22 years ago and history of atrial fibrillation.? He has been found to have increasing shortness of breath, lower extremity edema and a right pleural effusion.? Cardiac MRI has demonstrated evidence of pericardial constriction.? He presented 07/31 for elective R/LHC as part of work up for possible pericardectomy at [facility] with Dr. Mendez.? His right heart hemodynamics demonstrated severe pulmonary hypertension with very high RA pressures and prominent Y descent consistent with pericardial constriction.? Cardiac output is preserved.? Following his procedure he continued to require oxygen despite lasix administration.? ? Because of ongoing oxygen requirement, he was admitted to the hospital for continued observation and he underwent thoracentesis that was planned as an outpatient. Underwent successful right thoracentesis with IR with removal of 1100mL of fluid. Patient did well post-thoracentesis. Oxygen was weaned off and he was maintaining oxygen saturations on room air. Echocardiogram was scheduled to be done as outpatient, but done while he was in the hospital on 07/31. Echo read pending at the time of discharge -- to be followed up as outpatient. Status at Discharge Functional status at discharge: independent ambulation Overall status at discharge: patient is back to baseline Time Spent with Patient Time attestation: Total time spent providing and/or coordinating discharge services: Exam Const: General: comfortable and no acute distress HENMT: Mouth: Yes moist mucous membranes Eyes: General: appearance normal, both eyes and all related structures Sclera: sclerae normal Neck: Neck: supple Resp: Effort & Inspection: normal respiratory effort Auscultation: clear to auscultation bilaterally Cardio: Rhythm: abnormal rhythm irregularly irregular GI: GI Palp: Yes Soft to palpation Psych: Mental Status: mental status grossly normal Affect: normal affect DS: Data Data Completed and Pending Pending studies at discharge: Pending at discharge 07/30/22 16:46 Cytology [PTH] Routine Labs on day of discharge: Labs from last 24 hours 07/31/22 07/30/22 07/30/22 08:16 19:50 18:10 WBC 8.0 RBC 4.73 Hgb 16.3 Hct 49.2 MCV 104.0 H MCH 34.5 H MCHC 33.1 RDW 13.8 Plt Count 162 MPV 10.5 H Immature Gran % (Auto) 0.3 Neut % (Auto) 82.4 H Lymph % (Auto) 4.4 L [place] % (Auto) 10.8 H Eos % (Auto) 1.1 Baso % (Auto) 1.0 Lymph # (Auto) 0.35 L [place] # (Auto) 0.9 H Eos # (Auto) 0.1 Baso # (Auto) 0.1 Abs Immat Gran (auto) 0.02 Absolute Neuts (auto) 6.6 Absolute Nucleated RBC 0.0 Nucleated RBC % 0.0 Sodium 137 Potassium 4.6 Chloride 101 Carbon Dioxide 28 Anion Gap 8 BUN 25 H Creatinine 1.00 Estim Creat Clear Calc 59 Estimated GFR > 60 Glucose 124 H POC Capillary Glucose 115 H 161 H Calcium 9.4 Pleural Fluid Source Pleural Color Pleural Appearance Pleural pH Pleural RBC Pleural Nuc Cells Pleural Neutrophils Pleural Lymphocytes Pleural Monocytes Pleural Total Protein Pleural Albumin Pleural LDH Pleural Glucose Pleural Amylase Pleural Cholesterol Pleural Triglycerides 07/30/22 17:22 WBC RBC Hgb Hct MCV MCH MCHC RDW Plt Count MPV Immature Gran % (Auto) Neut % (A
[2022-07-31 12:16] LABS: Glucose Point of Care 156 mg/dl (65-105)
[2022-08-03 20:35] LABS: Glucose Pleural Fluid 125 mg/dL; LDH Pleural Fluid 70 U/L; Total Protein Pleural Fluid <3.0 g/dL
[2022-08-04 16:48] LABS: Amylase, Pleural Fluid 10 U/L
[2022-08-07 13:07] LABS: Albumin Pleural Fluid 1.8 g/dL
--- NOTE | 2022-08-23 18:37 | PM.IMCN ---
HPI Data of Consult Consult date: 08/23/22 Requesting Physician: July Carey PA-C Primary Care Provider: Ameya Chaudhary MD Consult Narrative Narrative: Delroy Chou is a 72 year old male did not see the patient before discharge [facility] Past Medical History Medical History A-fib Abnormal CXR Acute allergic conjunctivitis of left eye Blepharitis of left eye BMI 29.0-29.9,adult BMI 30.0-30.9,adult BMI 31.0-31.9,adult BMI 32.0-32.9,adult BMI 34.0-34.9,adult BMI 35.0-35.9,adult BMI 36.0-36.9,adult BMI 37.0-37.9, adult BPH (benign prostatic hyperplasia) Color vision deficiency Cough Cough variant asthma DM w/o complication type II Dry cough Dysphagia Elevated alkaline phosphatase level Elevated serum creatinine Encounter for Medicare annual wellness exam Encounter for routine adult health examination with abnormal findings Encounter for routine adult health examination without abnormal findings Fatigue Follow up Foot pain, left Hypervolemia Impacted cerumen of right ear Impaired functional mobility, balance, gait, and endurance Iron deficiency anemia Mixed hyperlipidemia Nocturia Nummular eczema Overactive bladder Pain and swelling of left lower extremity Pericarditis Plantar fasciitis Skin lesion SOB (shortness of breath) Symptom involving bladder URI (upper respiratory infection) UTI (urinary tract infection) Vitamin B12 deficiency Vitamin D deficiency Surgical History Surgical History Aortic valve replaced History of tonsillectomy Family History Family History Mother Hypertension Social History Social History Smoking status: Never smoker Second hand tobacco smoke exposure: No Alcohol intake: current Drinks per week: 14 Substance use: never Substance use type: does not use Lack of Transportation: No Lack of Food: Never True Current Housing: I Have Housing Concerned About Future Housing: No Difficulty Paying Gas/Electric Bills: No Difficulty Paying for Meds: No Currently Unemployed: No Education: Bachelor's Degree Difficulty w/ Childcare or Family Care: No Living arrangements: with family Additional living arrangements comments: Gender identity (if verbalized by the patient): Male Sexual Orientation (if Verbalized by the Patient): Straight or Heterosexual Spiritual care concerns: No Meds Home Medications and Allergies Home Medications Medication Instructions Recorded Confirmed Type sotalol 80 mg tablet 80 mg PO BID 05/05/19 07/27/22 History warfarin 4 mg tablet 4 mg PO DAILY 05/05/19 07/27/22 History aspirin 81 mg tablet,delayed 81 mg PO DAILY 08/17/19 07/27/22 History release (Adult Low Dose Aspirin) cholecalciferol (vitamin D3) 50 50 mcg PO DAILY 06/23/20 07/27/22 History mcg (2,000 unit) capsule folic acid-vit B6-vit B12 2.2 See Rx Instructions .Route 07/21/21 07/27/22 Rx mg-25 mg-0.5 mg tablet (Folplex) .COMPLEX #90 tabs potassium chloride 10 mEq See Rx Instructions .Route 07/21/21 07/27/22 Rx tablet,extended .COMPLEX #90 tabs release(part/cryst) (Klor-Con M) mirabegron 25 mg tablet,extended See Rx Instructions .Route .COMPLEX 12/06/21 07/27/22 History release 24 hr (Myrbetriq) lisinopril 20 mg tablet 20 mg PO BID #180 tabs 03/20/22 07/27/22 Rx tamsulosin 0.4 mg capsule See Rx Instructions .Route 04/19/22 07/27/22 Rx .COMPLEX #90 caps furosemide 20 mg tablet 20 mg PO QAM 05/30/22 07/27/22 History atorvastatin 80 mg tablet See Rx Instructions .Route 06/11/22 07/27/22 Rx .COMPLEX #90 tabs metformin 500 mg tablet See Rx Instructions .Route 06/11/22 07/27/22 Rx .COMPLEX #180 tabs pantoprazole 40 mg tablet,delayed See Rx Instructions .Route 06/13/22 07/27/22 Rx release .COMPLEX #90 t
== END 2022-07-31 13:20 | disposition home or self-care (01) ==
LOC: ANH3MED 07-31 07:28
PROVIDERS: Nurse Practitioner; Admitting Provider Specialist; PCP Internal Medicine; Visit Provider Physician Assistant
PROC: (CPT 93566; principal; 2022-07-30 10:00)
DX: I50.9 Heart failure, unspecified (principal); Z95.2 Presence of prosthetic heart valve; I31.1 Chronic constrictive pericarditis; I48.0 Paroxysmal atrial fibrillation; J90 Pleural effusion, not elsewhere classified; I08.0 Rheumatic disorders of both mitral and aortic valves; I27.20 Pulmonary hypertension, unspecified; J98.11 Atelectasis; J81.1 Chronic pulmonary edema; E11.9 Type 2 diabetes mellitus without complications; E78.5 Hyperlipidemia, unspecified; N32.81 Overactive bladder; E53.8 Deficiency of other specified B group vitamins; E55.9 Vitamin D deficiency, unspecified; Z79.01 Long term (current) use of anticoagulants; Z79.84 Long term (current) use of oral hypoglycemic drugs; Z79.899 Other long term (current) drug therapy
CPT/HCPCS: 32555; 36415; 71046; 80048; 82042; 82150; 82945; 82948; 83615; 83986; 84157; 84311; 84478; 85025; 85610; 87015; 87070; 87075; 87102; 87116; 87205; 87206; 88108; 88184; 88305; 89051; 93306; 93456; A9270; C1769; C1887; C1894; G0378; J1644; J1940; J2250; J3010; J7040

== ENCOUNTER 2022-09-25 14:13 | Outpatient (CLI) | payer MEDICARE, SELFPAY ==
[2022-09-25 14:51] LABS: Anion Gap 5 mmol/L (8-16); Blood Urea Nitrogen 21 mg/dL (9-20); Calcium 8.6 mg/dL (8.4-10.2); Carbon Dioxide 29 mmol/L (22-30); Chloride 101 mmol/L (98-107); Estimated Glomerular Filt Rate > 60; Glucose 100 mg/dL (65-110); Potassium 4.1 mmol/L (3.4-5.0); Sodium 135 mmol/L (137-145)
== END 2022-09-25 14:14 | disposition home or self-care (01) ==
LOC: ANHLAB 14:15
PROVIDERS: PCP Internal Medicine; Visit Provider Internal Medicine
DX: I10 Essential (primary) hypertension (principal); Z79.899 Other long term (current) drug therapy
CPT/HCPCS: 36415; 80048

== ENCOUNTER 2022-10-23 11:34 | Outpatient (CLI) | payer MEDICARE, SELFPAY ==
[2022-10-23 12:20] LABS: Alanine Aminotransferase 28 U/L (6-50); Albumin Level 3.9 g/dL (3.5-5.1); Alkaline Phosphatase 348 U/L (38-126); Aspartate Amino Transferase 37 U/L (17-59); Bilirubin,Total 0.9 mg/dL (0.2-1.3)
[2022-10-23 12:28] LABS: Prealbumin 11.5 mg/dL (17.6-36.0)
== END 2022-10-23 11:35 | disposition home or self-care (01) ==
LOC: ANHLAB 11:36
PROVIDERS: PCP Internal Medicine; Visit Provider Internal Medicine
DX: R63.4 Abnormal weight loss (principal); Z79.899 Other long term (current) drug therapy; R53.83 Other fatigue
CPT/HCPCS: 36415; 80076; 84134

== ENCOUNTER 2022-10-24 13:58 | Inpatient (IN) | payer MEDICARE, SELFPAY ==
[2022-10-24] VITALS (14 sets, daily range): BP systolic 114–141; BP diastolic 60–88; PULSE 61–104; RESP 16–24; TEMP 36.1–36.8; O2SAT 95–100; BMI 23.8
--- NOTE | ~2022-10-24 | US_ITS ---
EXAMINATION: US renal BI DATE: 10/25/2022 16:01 INDICATION: Bilateral hydronephrosis. TECHNIQUE: Multiple ultrasound grayscale images of the kidneys were obtained. COMPARISON: CT abdomen and pelvis 10/24/2022 FINDINGS: The right kidney measures 13.5 x 7.1 x 5.0 cm. The left kidney measures 11.9 x 5.2 x 5.5 cm. The kidn eys demonstrate normal parenchymal echogenicity. There is cortical thinning of the kidneys. There is mild right hydronephrosis and moderate left hydronephrosis. The bladder is decompressed by a Lara ca theter. IMPRESSION: 1. Mild right hydronephrosis and moderate left hydronephrosis. 2. Cortical thinning of the kidneys. Reviewed, dictated and finalized at location A.
--- NOTE | ~2022-10-24 | XR_ITS ---
EXAMINATION: XR abdomen/kub 1V DATE: 10/24/2022 15:57 INDICATION: Hematuria. TECHNIQUE: A supine view of the abdomen on 2 radiographs was obtained. COMPARISON: CT abdomen 07/25/2022 FINDINGS: There are no dilated loops of bowel. There is no visible urolithiasis. IMPRESSION: 1. No visible urolithiasis. Reviewed, dictated and finalized at location A. IMPRESSION: 1. No visible urolithiasis.
--- NOTE | ~2022-10-24 | CT_ITS ---
EXAMINATION: CT abdomen pelvis wo/w con DATE: 10/24/2022 18:13 INDICATION: gross hematuria TECHNIQUE: Computed tomography (CT) of the abdomen and pelvis was performed without and with 100 mL O mnipaque-350 intravenous contrast. Automated exposure control and iterative reconstruction technique were employed. The dose-length product was 1009.32 mGy-cm. COMPARISON: None. FINDINGS: Lower thorax: Right hemithorax volume loss, right pleural thickening, extensive right lung and mild l eft lung septal thickening. Small right pleural effusion. Marked cardiomegaly. Pericardial calcificat ion. Aortic valve replacement. Liver: Normal. Biliary/Gallbladder: Gallbladder is normal. No bile duct dilation. Pancreas: 11 mm cystic lesion in the pancreatic body. Spleen: Normal. Adrenals:No mass. Kidneys: No obstructing calcification. No suspicious renal mass. Left renal scar and atrophy. Moderat e left hydronephrosis. Moderate left urothelial thickening. Mild right hydronephrosis and thickening. Nodular filling defect in a right midpole calyx. The left collecting system does not fill with contr ast. GI tract: Small hiatal hernia. Mild antral wall edema. No small or large bowel dilation. Normal appen yahir. Mesentery/Peritoneum: No ascites, mass, or free air. Retroperitoneum: No mass. Atherosclerotic abdominal aortic and/or arterial calcifications. Pelvis: The bladder is decompressed by Lara catheter. Marked thickening of the urinary bladder wall. Soft Tissues: Mildly inflamed fat-containing umbilical hernia. Mild diffuse body wall edema. Bones: No acute osseous finding. IMPRESSION: Right pleural thickening, small right pleural effusion. Marked interlobular septal thickening in the right lower lobe and right middle lobe, findings which m ay represent edema, noting that a lymphangitic process is not excluded. Right midpole calyx filling defect may represent a partially or noncalcified stone, or sloughed papil susannah tissue. Delayed excretion from the left kidney which also demonstrates moderate scar and atrophy. Moderate left and mild right hydronephrosis. Marked urinary bladder wall thickening, concerning for cystitis. A mass lesion is not excluded. Consi markie cystoscopy Reviewed, dictated and finalized at location K. IMPRESSION: Right pleural thickening, small right pleural effusion. Marked interlobular septal thickening in the right lower lobe and right middle lobe, findings which may represent edema, noting that a lymphangitic process is not excluded. Right midpole calyx filling defect may represent a partially or noncalcified st one, or sloughed papillary tissue. Delayed excretion from the left kidney which also demonstrates moderate scar an d atrophy. Moderate left and mild right hydronephrosis. Marked urinary bladder wall thickening, concerning for cystitis. A mass lesion is not excluded. Consider cystoscopy
[2022-10-24 14:20] LABS: Basophils Absolute Auto 0.1 K/mm3 (0.0-0.1); Basophils Percent Auto 0.4 % (0.2-1.2); Eosinophils Absolute Auto 0.6 K/mm3 (0-0.3); Eosinophils Percent Auto 3.5 % (0-4.4); Hematocrit 40.9 % (42.0-52.0); Hemoglobin 13.3 g/dL (14.0-18.0); Immature Granulocyte Absolute 0.25 K/mm3 (0.00-0.031); Immature Granulocyte Percent A 1.4 % (0-0.5); Lymphocytes Absolute Auto 0.56 K/mm3 (0.9-3.2); Lymphocytes Percent Auto 3.1 % (18.3-44.2); Mean Corpuscular HGB Conc 32.5 g/dl (32-36); Mean Corpuscular Hemoglobin 29.9 pg (26-34); Mean Corpuscular Volume 91.9 fl (80-100); Mean Platelet Volume 9.4 fl (7.4-10.4); Monocytes Percent Auto 5.3 % (2.6-8.5); Neutrophils Absolute Auto 15.6 K/mm3 (1.3-6.7); Neutrophils Percent Auto 86.3 % (45.5-73.1); Platelet Count Result 323 k/mm3 (150-375); Red Blood Count 4.45 M/mm3 (4.6-6.20); Red Cell Distribution Width 15.2 % (11.5-14.5); White Blood Count 18.1 K/mm3 (4.5-10.0)
[2022-10-24 14:30] LABS: Alanine Aminotransferase 26 U/L (6-50); Albumin Level 3.9 g/dL (3.5-5.1); Alkaline Phosphatase 278 U/L (38-126); Anion Gap 12 mmol/L (8-16); Aspartate Amino Transferase 36 U/L (17-59); Bilirubin,Total 0.9 mg/dL (0.2-1.3); Blood Urea Nitrogen 59 mg/dL (9-20); Calcium 10.2 mg/dL (8.4-10.2); Carbon Dioxide 18 mmol/L (22-30); Chloride 103 mmol/L (98-107); Estimated CRCL calculation 38 ml/min; Estimated Glomerular Filt Rate 42; Glucose 122 mg/dL (65-110); Potassium 4.1 mmol/L (3.4-5.0); Sodium 133 mmol/L (137-145)
[2022-10-24 14:43] LABS: Partial Thromboplastin Time 111.9 SECONDS (22.3-36.8)
[2022-10-24 14:54] LABS: Prothrombin Time 79.2 Seconds (11.1-14.7)
[2022-10-24 15:02] LABS: INR 8.5
--- NOTE | 2022-10-24 15:08 | ED.RECABL ---
HPI - Recheck/Abnormal Lab/Rx General Chief Complaint: Recheck/Abnormal Lab/Rx Stated Complaint: INR > 8/ blood in urine Time Seen by Provider: 10/24/22 15:04 Source: patient and family Mode of arrival: ambulatory Limitations: no limitations History of Present Illness HPI narrative: Patient is 72 years old white male came to the emergency room with a chief complaint of urinating bright red bright blood this morning patient currently on antibiotic for urinary tract infection. He denies any fever, chills, nausea, vomiting, abdominal pain. She is feeling tired. Patient on Coumadin because history of metallic valve replacement, atrial fibrillation and history of pericardiectomy. Related Data Home Medications Medication Instructions Recorded Confirmed warfarin 4 mg tablet 4 mg PO DAILY 05/05/19 10/23/22 aspirin 81 mg tablet,delayed 81 mg PO DAILY 08/17/19 10/23/22 release (Adult Low Dose Aspirin) cholecalciferol (vitamin D3) 50 50 mcg PO DAILY 06/23/20 10/23/22 mcg (2,000 unit) capsule mirabegron 25 mg tablet,extended See Rx Instructions .Route .COMPLEX 12/06/21 10/23/22 release 24 hr (Myrbetriq) cyanocobalamin (vitamin B-12) 1,000 mcg PO QAM 07/27/22 10/23/22 1,000 mcg capsule acetaminophen 325 mg tablet 650 mg PO Q6H PRN 09/10/22 10/23/22 metoprolol succinate 50 mg 50 mg PO DAILY 10/23/22 10/23/22 tablet,extended release 24 hr nitrofurantoin 100 mg PO Q12H 10/23/22 10/23/22 monohydrate/macrocrystals 100 mg capsule (Macrobid) Allergies Allergy/AdvReac Type Severity Reaction Status Date / Time Penicillins Allergy Intermediate Rash Verified 10/23/22 10:48 Review of Systems Review of Systems: All systems reviewed & are unremarkable except as noted in HPI and below PMFSH Past Medical History Medical History A-fib Abnormal CXR Acute allergic conjunctivitis of left eye Blepharitis of left eye BMI 24.0-24.9, adult BMI 26.0-26.9,adult BMI 29.0-29.9,adult BMI 30.0-30.9,adult BMI 31.0-31.9,adult BMI 32.0-32.9,adult BMI 34.0-34.9,adult BMI 35.0-35.9,adult BMI 36.0-36.9,adult BMI 37.0-37.9, adult BPH (benign prostatic hyperplasia) Chronic hoarseness Color vision deficiency Cough Cough variant asthma DM w/o complication type II Dry cough Dysphagia Elevated alkaline phosphatase level Elevated serum creatinine Encounter for Medicare annual wellness exam Encounter for routine adult health examination with abnormal findings Encounter for routine adult health examination without abnormal findings Fatigue Follow up Foot pain, left Hospital discharge follow-up Hypervolemia Impacted cerumen of right ear Impaired functional mobility, balance, gait, and endurance Iron deficiency anemia Mixed hyperlipidemia Nocturia Nummular eczema Overactive bladder Pain and swelling of left lower extremity Pericarditis Plantar fasciitis Skin lesion SOB (shortness of breath) Unintentional weight loss URI (upper respiratory infection) UTI (urinary tract infection) Vitamin B12 deficiency Vitamin D deficiency Surgical History Surgical History Aortic valve replaced History of tonsillectomy Family History Family History (Updated 10/24/22 @ 18:26 by Glory Orozco RN) Mother Hypertension Sibling Hypertension Social History Social History Smoking status: Never smoker Second hand tobacco smoke exposure: Yes (Mother smoked ) Alcohol intake: current Drinks per week: 7 Substance use: never Substance use type: does not use Lack of Transportation: No Lack of Food: Never True Current Housing: I Have Housing Concerned About Future Housing: No Difficulty Paying Gas/Electric Bills: No Difficulty Paying for Meds: No Currently Unemployed: No Education: Bachelor's Degree Difficulty w/ Childcare or Family Care: No Wilber
[2022-10-24] MEDS: PHYTONADIONE ADULT INJ 10 MG in DEXTROSE 5% IN WATER 50 ML 100 MG IVPB (15:49)
[2022-10-24] MEDS: SODIUM CHLORIDE 0.9% IV 1,000 ML 999 ML IV CONT (15:49)
[2022-10-24 15:58] LABS: Hematocrit 41.1 % (42.0-52.0); Hemoglobin 13.4 g/dL (14.0-18.0); Mean Corpuscular HGB Conc 32.6 g/dl (32-36); Mean Corpuscular Hemoglobin 29.8 pg (26-34); Mean Corpuscular Volume 91.5 fl (80-100); Mean Platelet Volume 9.1 fl (7.4-10.4); Platelet Count Result 312 k/mm3 (150-375); Red Blood Count 4.49 M/mm3 (4.6-6.20); Red Cell Distribution Width 15.2 % (11.5-14.5); White Blood Count 18.5 K/mm3 (4.5-10.0)
[2022-10-24 16:06] LABS: Alanine Aminotransferase 27 U/L (6-50); Albumin Level 3.7 g/dL (3.5-5.1); Alkaline Phosphatase 258 U/L (38-126); Anion Gap 12 mmol/L (8-16); Aspartate Amino Transferase 33 U/L (17-59); Bilirubin,Total 0.8 mg/dL (0.2-1.3); Blood Urea Nitrogen 59 mg/dL (9-20); Calcium 10.1 mg/dL (8.4-10.2); Carbon Dioxide 19 mmol/L (22-30); Chloride 104 mmol/L (98-107); Estimated CRCL calculation 40 ml/min; Estimated Glomerular Filt Rate 46; Glucose 117 mg/dL (65-110); Sodium 135 mmol/L (137-145)
--- NOTE | 2022-10-24 16:21 | WPDURCON ---
Assessment and Plan Assessment and plan (1) Hematuria: Qualifiers: Hematuria type: gross Qualified Code(s): R31.0 - Gross hematuria Code(s): R31.9 - Hematuria, unspecified Status: Acute Assessment and Plan: Start CBI, insert 3 way murillo. Repeat urine culture. Patient was switch from Nitrofurantoin to Bactrim d/t resistance. Get CT scan to rule out other sources of hematuria. (2) UTI (urinary tract infection): Code(s): N39.0 - Urinary tract infection, site not specified Status: Acute Urology Consult Note HPI Date Seen: 10/24/22 Time Seen: 16:21 Primary Care Provider: Ameya Chaudhary MD Consult Narrative Reason for consult: Gross Hematuria Narrative: Delroy Chou is a 72 year old male who presented to the ER today for gross hematuria and elevated INR >8 that was noted on his machine at home. He takes Coumadin and ASA. He was seen in our office by me on 10/17/22 and treated for a UTI with Nitrofurantoin, but his culture came back resistant to Nitrofurantoin and he was switch to Bactrim yesterday. He has a history of UTI's and describes dysuria, urgency, frequency but no difficulty with urination or incomplete emptying. Vitals are stable, labs are all pending, no imaging has been done thus far. Review of Systems Cardiovascular: Cardiovascular: Denies chest pain Respiratory: Respiratory: Reports no additional respiratory complaints Gastrointestinal: Gastrointestinal: Denies abdominal pain, Denies nausea and Denies vomiting Genitourinary: Genitourinary: Reports hematuria, Reports urinary frequency, Reports urinary hesitancy and Reports urinary urgency [facility] Past Medical History Medical History A-fib Abnormal CXR Acute allergic conjunctivitis of left eye Blepharitis of left eye BMI 24.0-24.9, adult BMI 26.0-26.9,adult BMI 29.0-29.9,adult BMI 30.0-30.9,adult BMI 31.0-31.9,adult BMI 32.0-32.9,adult BMI 34.0-34.9,adult BMI 35.0-35.9,adult BMI 36.0-36.9,adult BMI 37.0-37.9, adult BPH (benign prostatic hyperplasia) Chronic hoarseness Color vision deficiency Cough Cough variant asthma DM w/o complication type II Dry cough Dysphagia Elevated alkaline phosphatase level Elevated serum creatinine Encounter for Medicare annual wellness exam Encounter for routine adult health examination with abnormal findings Encounter for routine adult health examination without abnormal findings Fatigue Follow up Foot pain, left Hospital discharge follow-up Hypervolemia Impacted cerumen of right ear Impaired functional mobility, balance, gait, and endurance Iron deficiency anemia Mixed hyperlipidemia Nocturia Nummular eczema Overactive bladder Pain and swelling of left lower extremity Pericarditis Plantar fasciitis Skin lesion SOB (shortness of breath) Unintentional weight loss URI (upper respiratory infection) UTI (urinary tract infection) Vitamin B12 deficiency Vitamin D deficiency Surgical History Surgical History Aortic valve replaced History of tonsillectomy Family History Family History Mother Hypertension Social History Social History Smoking status: Never smoker Second hand tobacco smoke exposure: Yes (Mother smoked ) Alcohol intake: current Drinks per week: 7 Substance use: never Substance use type: does not use Lack of Transportation: No Lack of Food: Never True Current Housing: I Have Housing Concerned About Future Housing: No Difficulty Paying Gas/Electric Bills: No Difficulty Paying for Meds: No Currently Unemployed: No Education: Bachelor's Degree Difficulty w/ Childcare or Family Care: No Living arrangements: with family Additional living arrangements comments: Occupation/Education: retire
[2022-10-24 16:25] LABS: Band Neutrophils Percent 1 % (0-6); Eosinophils Absolute Manual 0.37 K/mm3 (0.02-0.5); Eosinophils Percent Manual 2 % (0-4); Lymphocytes Absolute Manual 0.74 K/mm3 (1.1-4.5); Monocytes Absolute Manual 1.11 K/mm3 (0.1-0.90); Monocytes Percent Manual 6 % (3-9); Neutrophils Absolute Manual 16.28 K/mm3 (1.3-6.7); Neutrophils Percent Manual 87 % (46-73); Total Cells Counted 100
[2022-10-24 16:26] LABS: Anisocytosis 2+ (NORMAL); Platelet Estimate Adequate (Adequate); Schistocytes None Seen (NORMAL)
[2022-10-24 16:28] LABS: Bacteria Urine 4+ /hpf; Need Manual Microscopic Reviewed; Non Pathogenic Casts >20; RBC Urine >100 /hpf (0-2); Squamous Epithelial Cell Urine None seen /hpf (Few); WBC Urine >100 /hpf
[2022-10-24 16:34] LABS: Appearance Urine Cloudy (Clear); Bilirubin Urine 1+ (Negative); Blood Urine 3+ (Negative); Color Urine Red (Yellow); Glucose Urine UA Negative (Negative); Ketones Urine Trace mg/dL (Negative); Leukocyte Esterase Ur 3+ LEU/UL (Negative); Nitrate Urine Negative (Negative); Protein Urine 3+ mg/dL (Negative); Specific Grav Ur 1.015 (1.001-1.035); Urobilinogen Urine 0.2 mg/dL (<2.0); pH Urine >=9.0 (5.0-9.0)
[2022-10-24 16:37] LABS: Add Urine Microscopic? YES
[2022-10-24 17:35] LABS: INR 1.3; Prothrombin Time 17.4 Seconds (11.1-14.7)
[2022-10-24] MEDS: HEPARIN SOD/D5W 100 UNITS/ML 25,000 UNITS/250 ML BAG 9 UNITS IV CONT (18:24)
[2022-10-24] MEDS: SODIUM CHLORIDE 0.9% IV 1,000 ML 125 ML IV CONT (18:24)
--- NOTE | 2022-10-24 18:24 | ADMGEN ---
This patient, Delroy Chou, was admitted to [facility] Surg Room 324-02. Patient/family oriented to hospital policies and general routines including ID bracelet, bed and alarms, visiting hours, pain management, procedures, bathroom and other care routines, personal items, smoking policy, room service/diet, and visiting hours. Information on how to activate the Rapid Response Team has been discussed. Patient/Family are encouraged to report perceived risks to care and to ask questions if they do not understand what they are told or what they should do.
--- NOTE | 2022-10-24 19:14 | PM.IMHP ---
H&P: HPI History of Present Illness Date/Time: 10/24/22 19:14 Chief Complaint: Hematuria Narrative: This is a 72-year-old male with past medical history significant for recurrent pericarditis, aortic valve stenosis, benign prostatic hyperplasia, cough variant asthma, type diabetes mellitus, atrial fibrillation. Patient is status post aortic valve replacement and pericardiectomy this was done in August at [facility]. Patient presents today to the emergency room due to dania hematuria INR was 8.7. Patient has been doing very well after his surgical procedure and has had a good recovery with improvement of his life. Denies any fevers, rigors, chills, nausea, vomiting, diarrhea, shortness of breath, cough, sputum production, leg swelling. CBI was started in the emergency room. Patient is been admitted for further evaluation management and treatment. EXAMINATION: XR abdomen/kub 1V DATE: 10/24/2022 15:57 INDICATION: Hematuria. TECHNIQUE: A supine view of the abdomen on 2 radiographs was obtained. COMPARISON: CT abdomen 07/25/2022 FINDINGS: There are no dilated loops of bowel. There is no visible urolithiasis. IMPRESSION: 1. No visible urolithiasis. EXAMINATION: CT abdomen pelvis wo/w con DATE: 10/24/2022 18:13 INDICATION: gross hematuria TECHNIQUE: Computed tomography (CT) of the abdomen and pelvis was performed without and with 100 mL Omnipaque-350 intravenous contrast. Automated exposure control and iterative reconstruction technique were employed. The dose-length product was 1009.32 mGy-cm. COMPARISON: None. FINDINGS: Lower thorax: Right hemithorax volume loss, right pleural thickening, extensive right lung and mild left lung septal thickening. Small right pleural effusion. Marked cardiomegaly. Pericardial calcification. Aortic valve replacement. Liver: Normal.? Biliary/Gallbladder: Gallbladder is normal. No bile duct dilation. Pancreas: 11 mm cystic lesion in the pancreatic body. Spleen: Normal. Adrenals:No mass. Kidneys: No obstructing calcification. No suspicious renal mass. Left renal scar and atrophy. Moderate left hydronephrosis. Moderate left urothelial thickening. Mild right hydronephrosis and thickening. Nodular filling defect in a right midpole calyx. The left collecting system does not fill with contrast. GI tract: Small hiatal hernia. Mild antral wall edema. No small or large bowel dilation. Normal appendix. Mesentery/Peritoneum: No ascites, mass, or free air. Retroperitoneum: No mass. Atherosclerotic abdominal aortic and/or arterial calcifications. Pelvis: The bladder is decompressed by Lara catheter. Marked thickening of the urinary bladder wall. Soft Tissues: Mildly inflamed fat-containing umbilical hernia. Mild diffuse body wall edema. Bones:? No acute osseous finding. IMPRESSION: Right pleural thickening, small right pleural effusion. Marked interlobular septal thickening in the right lower lobe and right middle lobe, findings which may represent edema, noting that a lymphangitic process is not excluded. Right midpole calyx filling defect may represent a partially or noncalcified stone, or sloughed papillary tissue. Delayed excretion from the left kidney which also demonstrates moderate scar and atrophy. Moderate left and mild right hydronephrosis. Marked urinary bladder wall thickening, concerning for cystitis. A mass lesion is not excluded. Consider cystoscopy Review of Systems Review of Systems: Hematuria Constitutional: Constitutional: Denies chills, Denies fever(s), Denies malaise and Denies weakness PMFSH Past Medical History Medical History A-fib Abnormal CXR Acute allergic conjunctivitis of left eye Blepharitis of left eye BMI 24.0-24.9, adult BMI 26.0-26.9,adult BMI 29.0-29.9,adult BMI 30.0-30.9,adult BMI 31.0-31.9,adult BMI 32.0-32.9,adult BMI 34.0-34.9,adult BMI 35.0-35.9,adult BMI 36.0-36.9,adult BM
[2022-10-24] MEDS: traZODone HCL 50 MG TABLET PO (21:36)
[2022-10-24] MEDS: METOPROLOL SUCCINATE EXT REL 50 MG TABCR PO (21:37)
[2022-10-24] MEDS: FERROUS SULFATE 325 MG TABLET DR PO (21:37)
[2022-10-24] MEDS: TAMSULOSIN HCL 0.4 MG CAPSULE PO (21:37)
[2022-10-25] MEDS: ACETAMINOPHEN/ASPIRIN/CAFFEINE 250-250-65 MG TABLET 1 TABLET PO ×2 (00:09→20:31)
[2022-10-25 00:13] VITALS: BP 140/73; PULSE 91; RESP 12; TEMP 36.5; O2SAT 99
[2022-10-25 00:50] LABS: Partial Thromboplastin Time 38.2 SECONDS (22.3-36.8)
[2022-10-25] MEDS: HEPARIN SODIUM 5,000 UNITS/ML VIAL 4000 UNITS IV PUSH ×2 (01:01→06:34)
[2022-10-25] MEDS: HEPARIN SOD/D5W 100 UNITS/ML 25,000 UNITS/250 ML BAG 12 UNITS IV CONT (01:02)
[2022-10-25 06:00] VITALS: BP 137/79; PULSE 77; RESP 18; TEMP 36.6; O2SAT 99
[2022-10-25 06:16] LABS: Basophils Absolute Auto 0.1 K/mm3 (0.0-0.1); Basophils Percent Auto 0.7 % (0.2-1.2); Eosinophils Absolute Auto 0.9 K/mm3 (0-0.3); Eosinophils Percent Auto 5.4 % (0-4.4); Hematocrit 38.3 % (42.0-52.0); Hemoglobin 12.3 g/dL (14.0-18.0); Immature Granulocyte Absolute 0.24 K/mm3 (0.00-0.031); Immature Granulocyte Percent A 1.5 % (0-0.5); Lymphocytes Absolute Auto 0.69 K/mm3 (0.9-3.2); Lymphocytes Percent Auto 4.3 % (18.3-44.2); Mean Corpuscular HGB Conc 32.1 g/dl (32-36); Mean Corpuscular Hemoglobin 29.6 pg (26-34); Mean Corpuscular Volume 92.3 fl (80-100); Mean Platelet Volume 9.3 fl (7.4-10.4); Monocytes Absolute Auto 1.2 K/mm3 (0.1-0.6); Monocytes Percent Auto 7.7 % (2.6-8.5); Neutrophils Absolute Auto 12.9 K/mm3 (1.3-6.7); Neutrophils Percent Auto 80.4 % (45.5-73.1); Platelet Count Result 287 k/mm3 (150-375); Red Blood Count 4.15 M/mm3 (4.6-6.20); Red Cell Distribution Width 15.1 % (11.5-14.5)
[2022-10-25 06:26] LABS: Partial Thromboplastin Time 41.5 SECONDS (22.3-36.8)
[2022-10-25] MEDS: CHOLECALCIFEROL 1,000 UNITS TABLET 2000 UNITS PO (08:39)
[2022-10-25] MEDS: ATORVASTATIN 40 MG TABLET 80 MG PO (08:39)
[2022-10-25 08:40] VITALS: PULSE 72
[2022-10-25] MEDS: METOPROLOL SUCCINATE EXT REL 50 MG TABCR PO (08:40)
[2022-10-25] MEDS: CYANOCOBALAMIN 1,000 MCG TABLET 1000 MCG PO (08:41)
[2022-10-25] MEDS: PANTOPRAZOLE 40 MG TABLET PO (08:41)
[2022-10-25 11:34] LABS: Glucose Point of Care 132 mg/dl (65-105)
--- NOTE | 2022-10-25 11:34 | PM.IMPN ---
Progress Note: A&P Assessment and Plan (1) Hematuria: Qualifiers: Hematuria type: gross Qualified Code(s): R31.0 - Gross hematuria Code(s): R31.9 - Hematuria, unspecified Status: Acute Assessment and Plan: Start CBI, insert 3 way murillo. Repeat urine culture. Patient was switch from Nitrofurantoin to Bactrim d/t resistance. Get CT scan to rule out other sources of hematuria. (2) UTI (urinary tract infection): Code(s): N39.0 - Urinary tract infection, site not specified Status: Acute Subjective Date/time seen: 10/25/22 11:34 Interval history: No complaints Exam Narrative: General appearance: Well-developed, well-nourished Skin: Normal color Head: Normocephalic, nontraumatic Eyes: Clear conjunctiva ENT: Oropharynx normal, ears normal, nose normal Neck: Supple, nontender Chest and respiratory: Airway patent, no respiratory distress, no accessory muscle use Heart: Regular rate/rhythm Abdomen: Soft, nontender, no organomegaly, quiet bowel sounds Vascular: Normal peripheral pulses, normal capillary refill. Musculoskeletal: Normal range of motion, nontender back Neurologic: Alert and oriented ?3, [employer] is normal as tested, no gross motor deficit Objective Data Vital Signs Vital Signs: Vital Signs - 24 hr 10/24/22 14:02 10/24/22 15:05 10/24/22 15:16 Temperature 98.2 F Pulse Rate 61 61 Respiratory Rate 16 17 Blood Pressure 118/60 131/88 Pulse Oximetry 98 100 98 Oxygen Delivery 10/24/22 15:17 10/24/22 15:30 10/24/22 15:31 Temperature Pulse Rate 90 91 Respiratory Rate 18 Blood Pressure 114/71 Pulse Oximetry 99 99 98 Oxygen Delivery 10/24/22 15:45 10/24/22 16:14 10/24/22 16:17 Temperature Pulse Rate 95 94 Respiratory Rate 18 Blood Pressure Pulse Oximetry 99 Oxygen Delivery 10/24/22 16:30 10/24/22 16:31 10/24/22 16:46 Temperature Pulse Rate 104 H 101 H 102 H Respiratory Rate Blood Pressure 125/75 126/88 Pulse Oximetry 100 99 100 Oxygen Delivery 10/24/22 16:48 10/24/22 20:00 10/24/22 22:00 Temperature 97 F L Pulse Rate 94 102 H Respiratory Rate 24 H Blood Pressure 141/70 H Pulse Oximetry 99 95 Oxygen Delivery Room Air 10/25/22 00:13 10/25/22 06:00 10/25/22 08:40 Temperature 97.7 F 97.8 F Pulse Rate 91 77 72 Respiratory Rate 12 18 Blood Pressure 140/73 137/79 Pulse Oximetry 99 99 Oxygen Delivery Intake/Output Intake/Output: Intake & Output 10/22/22 10/23/22 10/24/22 10/25/22 23:59 23:59 23:59 23:59 Intake Total 1255 03360 Output Total 1000 95351 Balance 255 1662 Meds/Results Medications: Active Medications Generic Name Dose Route Start Last Admin Trade Name Freq PRN Reason Stop Dose Admin Acetaminophen 650 mg 10/24/22 16:35 Acetaminophen 325 Mg Tablet PO Q4H PRN Mild Pain (1-3) or Fever Acetaminophen/Aspirin/Caffeine 1 tablet 10/24/22 22:40 10/25/22 00:09 Acetaminophen/Aspirin/Caffeine 250-250-65 Mg Tablet PO 1 tablet Q6H PRN Administration Pain Rated 1-3 Atorvastatin Calcium 80 mg 10/25/22 09:00 10/25/22 08:39 Atorvastatin 40 Mg Tablet PO 80 mg DAILY MIKAYLA Administration Cyanocobalamin 1,000 mcg 10/25/22 09:00 10/25/22 08:41 Cyanocobalamin 1,000 Mcg Tablet PO 1,000 mcg QAM MIKAYLA Administration Ferrous Sulfate 325 mg 10/24/22 21:00 10/24/22 21:37 Ferrous Sulfate [address] PO 11/23/22 20:59 325 mg HS MIKAYLA Administration Folic Acid/Cyanocobalamin/pyridoxin 1 tab 10/24/22 21:00 10/24/22 21:37 Cyanocobalamin/Fa/Pyridoxine (Foltx) Tablet PO 11/23/22 20:59 1 tab HS MIKAYLA Administration
[2022-10-25 12:42] LABS: Partial Thromboplastin Time 133.1 SECONDS (22.3-36.8)
[2022-10-25 12:58] VITALS: BMI 23.8
--- NOTE | 2022-10-25 13:03 | PC.NURSE ---
pause heparin per protocol. checked with hospitalist to verify due to ptt value being so close to lower tier. ptt is 133.1 and protocol calls for >133 to stop infusion for an hour then lower infusion rate after resuming. MD states to follow protocol. infusion is stopped and will resume when holding time is up.
[2022-10-25 14:00] VITALS: BP 121/60; PULSE 86; RESP 16; TEMP 37.3; O2SAT 97
--- NOTE | 2022-10-25 14:13 | PC.NURSE ---
restarted heparin drip plus decreased from 15mg/hr to 13mg/hr.
--- NOTE | 2022-10-25 15:55 | WPDUROPN2 ---
Progress Note: A&P Assessment and Plan (1) UTI (urinary tract infection): Code(s): N39.0 - Urinary tract infection, site not specified Status: Acute Assessment and Plan: Continue IV antibiotics, tailor to culture results. (2) Hematuria: Qualifiers: Hematuria type: gross Qualified Code(s): R31.0 - Gross hematuria Code(s): R31.9 - Hematuria, unspecified Status: Acute Assessment and Plan: Resolved on CBI, keep CBI off. Restart CBI if bleeding starts, then wean to off. If urine remains clear overnight off CBI, ok to remove muirllo for voiding trial at anytime per urology. (3) Bilateral hydronephrosis: Code(s): N13.30 - Unspecified hydronephrosis Status: Acute Assessment and Plan: Get SCAR to confirm resolution. Continue Tamsulosin, if he fails his voiding trial, may need to stop Myrbetriq as it can cause urinary retention. Subjective Subjective Date/Time Seen: 10/25/22 15:55 Interval history: Patient doing well s/p CBI 3 way murillo placement in the ER yesterday. Urine is clear and draining to gravity off CBI. His WBC is 16, creatinine is 1.50. CT scan yesterday shows: Right midpole calyx filling defect may represent a partially or noncalcified stone, or sloughed papillary tissue. Delayed excretion from the left kidney which also demonstrates moderate scar and atrophy. Moderate left and mild right hydronephrosis. Marked urinary bladder wall thickening, concerning for cystitis. A mass lesion is not excluded. Consider cystoscopy. Urine culture is pending, IV antibiotics continue. Review of Systems Cardiovascular: Cardiovascular: Reports no additional cardiovascular complaints Respiratory: Respiratory: Reports no additional respiratory complaints Gastrointestinal: Gastrointestinal: Denies abdominal pain, Denies nausea and Denies vomiting Genitourinary: Genitourinary: Denies hematuria, Denies genital pain, Denies dysuria, Denies flank pain, Denies urinary frequency, Denies urinary hesitancy, Denies urinary incontinence and Denies urinary urgency Exam Const: General: cooperative and comfortable Resp: Effort & Inspection: tachypneic Cardio: Rate: tachycardic GI: GI Palp: Yes Soft to palpation and No Tenderness to palpation present (GI) : General: Yes no CVA tenderness Meatus: meatus normal Urinary Catheter: Urinary Catheter: patent and draining and urine clear Extrem: Right lower extremity: no edema Left lower extremity: no edema Objective Data Vital Signs Vital Signs: Vital Signs - 24 hr 10/24/22 16:14 10/24/22 16:17 10/24/22 16:30 Temperature Pulse Rate 95 94 104 H Respiratory Rate 18 Blood Pressure Pulse Oximetry 100 Oxygen Delivery 10/24/22 16:31 10/24/22 16:46 10/24/22 16:48 Temperature Pulse Rate 101 H 102 H 94 Respiratory Rate Blood Pressure 125/75 126/88 Pulse Oximetry 99 100 99 Oxygen Delivery 10/24/22 20:00 10/24/22 22:00 10/25/22 00:13 Temperature 97 F L 97.7 F Pulse Rate 102 H 91 Respiratory Rate 24 H 12 Blood Pressure 141/70 H 140/73 Pulse Oximetry 95 99 Oxygen Delivery Room Air 10/25/22 06:00 10/25/22 08:40 10/25/22 14:00 Temperature 97.8 F 99.1 F Pulse Rate 77 72 86 Respiratory Rate 18 16 Blood Pressure 137/79 121/60 Pulse Oximetry 99 97 Oxygen Delivery Intake/Output Intake/Output: Intake & Output 10/22/22 10/23/22 10/24/22 10/25/22 23:59 23:59 23:59 23:59 Intake Total 1255 44742 Output Total 1000 57919 Balance 255 2152 Meds/Results Medications: Active Medications Generic Name Dose Route Start Last Admin Trade Name Freq PRN Reason Stop Dose Admin Acetaminophen 650 mg 10/24/22 16:35 Acetaminophen 325 Mg Tablet PO Q4H PRN Mild Pain (1-3) or Fever Acetaminophen/Aspirin/Caffeine 1 tablet 10/24/22 22:40 10/25/22 00:09 Acetaminophen/Aspirin/Caffeine 250-250-65 Mg Tablet PO 1 tablet Q6H P
[2022-10-25] MEDS: HEPARIN SOD/D5W 100 UNITS/ML 25,000 UNITS/250 ML BAG 13 UNITS IV CONT (16:54)
[2022-10-25 16:58] LABS: Glucose Point of Care 141 mg/dl (65-105)
[2022-10-25 19:59] LABS: Partial Thromboplastin Time 190.3 SECONDS (22.3-36.8)
[2022-10-25] MEDS: TAMSULOSIN HCL 0.4 MG CAPSULE PO (20:23)
[2022-10-25] MEDS: FERROUS SULFATE 325 MG TABLET DR PO (20:23)
[2022-10-25] MEDS: traZODone HCL 50 MG TABLET PO (20:31)
[2022-10-25 20:55] LABS: Glucose Point of Care 163 mg/dl (65-105)
[2022-10-25] MEDS: HEPARIN SOD/D5W 100 UNITS/ML 25,000 UNITS/250 ML BAG 11 UNITS IV CONT (21:01)
[2022-10-25 22:00] VITALS: BP 115/67; PULSE 86; RESP 18; TEMP 35.8; O2SAT 97
[2022-10-26 04:07] LABS: Partial Thromboplastin Time > 200.0 SECONDS (22.3-36.8)
[2022-10-26 06:00] VITALS: BP 144/67; PULSE 78; RESP 18; TEMP 35.9; O2SAT 97
[2022-10-26 07:55] LABS: Glucose Point of Care 116 mg/dl (65-105)
[2022-10-26 09:27] VITALS: PULSE 74
[2022-10-26] MEDS: PANTOPRAZOLE 40 MG TABLET PO (09:27)
[2022-10-26] MEDS: ATORVASTATIN 40 MG TABLET 80 MG PO (09:27)
[2022-10-26] MEDS: METOPROLOL SUCCINATE EXT REL 50 MG TABCR PO (09:27)
[2022-10-26] MEDS: CHOLECALCIFEROL 1,000 UNITS TABLET 2000 UNITS PO (09:28)
[2022-10-26] MEDS: CYANOCOBALAMIN 1,000 MCG TABLET 1000 MCG PO (09:28)
[2022-10-26 09:36] LABS: Partial Thromboplastin Time 120.5 SECONDS (22.3-36.8)
[2022-10-26 09:52] LABS: Anion Gap 5 mmol/L (8-16); Blood Urea Nitrogen 44 mg/dL (9-20); Calcium 9.6 mg/dL (8.4-10.2); Carbon Dioxide 24 mmol/L (22-30); Chloride 102 mmol/L (98-107); Estimated CRCL calculation 43 ml/min; Estimated Glomerular Filt Rate 50; Glucose 138 mg/dL (65-110); Potassium 4.2 mmol/L (3.4-5.0); Sodium 131 mmol/L (137-145)
[2022-10-26 11:51] LABS: Glucose Point of Care 138 mg/dl (65-105)
--- NOTE | 2022-10-26 13:33 | PM.IMPN ---
Progress Note: A&P Assessment and Plan (1) Hematuria: Qualifiers: Hematuria type: gross Qualified Code(s): R31.0 - Gross hematuria Code(s): R31.9 - Hematuria, unspecified Status: Acute Assessment and Plan: Start CBI, insert 3 way murillo. Repeat urine culture. Patient was switch from Nitrofurantoin to Bactrim d/t resistance. Get CT scan to rule out other sources of hematuria. (2) UTI (urinary tract infection): Code(s): N39.0 - Urinary tract infection, site not specified Status: Acute (3) Hyperlipidemia: Code(s): E78.5 - Hyperlipidemia, unspecified Status: Acute (4) Hypertension: Qualifiers: Hypertension type: unspecified Qualified Code(s): I10 - Essential (primary) hypertension Code(s): I10 - Essential (primary) hypertension Status: Acute (5) History of mechanical aortic valve replacement: Code(s): Z95.2 - Presence of prosthetic heart valve Status: Acute Subjective Date/time seen: 10/26/22 13:33 Interval history: No new complaints Exam Narrative: General appearance: Well-developed, well-nourished Skin: Normal color Head: Normocephalic, nontraumatic Eyes: Clear conjunctiva ENT: Oropharynx normal, ears normal, nose normal Neck: Supple, nontender Chest and respiratory: Airway patent, no respiratory distress, no accessory muscle use Heart: Regular rate/rhythm Abdomen: Soft, nontender, no organomegaly, quiet bowel sounds Vascular: Normal peripheral pulses, normal capillary refill. 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, no gross motor deficit Objective Data Vital Signs Vital Signs: Vital Signs - 24 hr 10/25/22 14:00 10/25/22 22:00 10/25/22 20:20 Temperature 99.1 F 96.4 F L Pulse Rate 86 86 Respiratory Rate 16 18 Blood Pressure 121/60 115/67 Pulse Oximetry 97 97 Oxygen Delivery Room Air 10/26/22 06:00 10/26/22 09:27 Temperature 96.7 F L Pulse Rate 78 74 Respiratory Rate 18 Blood Pressure 144/67 H Pulse Oximetry 97 Oxygen Delivery Intake/Output Intake/Output: Intake & Output 10/23/22 10/24/22 10/25/22 10/26/22 23:59 23:59 23:59 23:59 Intake Total 4272 09505 1198 Output Total 1000 60218 6161 Balance 255 7341 -2914 Meds/Results Medications: Active Medications Generic Name Dose Route Start Last Admin Trade Name Yamilet PRN Reason Stop Dose Admin Acetaminophen 650 mg 10/24/22 16:35 Acetaminophen 325 Mg Tablet PO Q4H PRN Mild Pain (1-3) or Fever Acetaminophen/Aspirin/Caffeine 1 tablet 10/24/22 22:40 10/25/22 20:31 Acetaminophen/Aspirin/Caffeine 250-250-65 Mg Tablet PO 1 tablet Q6H PRN Administration Pain Rated 1-3 Atorvastatin Calcium 80 mg 10/25/22 09:00 10/26/22 09:27 Atorvastatin 40 Mg Tablet PO 80 mg DAILY MIKAYLA Administration Cefdinir 300 mg 10/26/22 21:00 Cefdinir 300 Mg Capsule PO 10/31/22 09:01 Q12HR MIKAYLA Cyanocobalamin 1,000 mcg 10/25/22 09:00 10/26/22 09:28 Cyanocobalamin 1,000 Mcg Tablet PO 1,000 mcg QAM MIKAYLA Administration Ferrous Sulfate 325 mg 10/24/22 21:00 10/25/22 20:23 Ferrous Sulfate [address] PO 11/23/22 20:59 325 mg HS [facility] Administration Folic Acid/Cyanocobalamin/pyridoxin 1 tab 10/24/22 21:00 10/25/22 20:24 Cyanocobalamin/Fa/Pyridoxine (Foltx) Tablet PO 11/23/22 20:59 1 tab HS MIKAYLA Administration Heparin Sodium (Porcine) 3,000 units 10/24/22 17:57 Heparin Sodium 5,000 Units/Ml Vial IV PUSH PRN PRN aPTT 55 - 70 seconds Heparin Sodium (Porcine) 4,000 units 10/24/22 17:57 10/25/22
[2022-10-26 14:00] VITALS: BP 120/74; PULSE 73; RESP 22; TEMP 36.9; O2SAT 98
[2022-10-26 15:32] LABS: Partial Thromboplastin Time 72.5 SECONDS (22.3-36.8)
--- NOTE | 2022-10-26 16:04 | WPDUROPN2 ---
Progress Note: A&P Assessment and Plan (1) Bilateral hydronephrosis: Code(s): N13.30 - Unspecified hydronephrosis Status: Acute Assessment and Plan: Appears to be chronic, keep murillo in for maximal drainage. Monitor creatinine to see if it improves with time as baseline is 1.00. (2) UTI (urinary tract infection): Code(s): N39.0 - Urinary tract infection, site not specified Status: Acute Assessment and Plan: Culture positive, tailor antibiotics to culture sensitivity. (3) Hematuria: Qualifiers: Hematuria type: gross Qualified Code(s): R31.0 - Gross hematuria Code(s): R31.9 - Hematuria, unspecified Status: Acute Assessment and Plan: Resolved, restart CBI if necessary. Subjective Subjective Date/Time Seen: 10/26/22 16:04 Interval history: Patient doing well s/p CBI 3 way murillo placement in the ER yesterday. Urine is clear and draining to gravity off CBI. His WBC is 16, creatinine is 1.50. CT scan shows: Right midpole calyx filling defect may represent a partially or noncalcified stone, or sloughed papillary tissue. Delayed excretion from the left kidney which also demonstrates moderate scar and atrophy. Moderate left and mild right hydronephrosis. Marked urinary bladder wall thickening, concerning for cystitis. A mass lesion is not excluded. Consider cystoscopy. SCAR done after placement of murillo catheter showing: Mild right hydronephrosis and moderate left hydronephrosis. Cortical thinning of the kidneys. After reviewing older scans, it appears that the bilateral hydro is chronic. Bladder is collapsed. Urine culture is positive gram negative bacilli, IV antibiotics continue. Review of Systems Cardiovascular: Cardiovascular: Denies chest pain Respiratory: Respiratory: Reports no additional respiratory complaints Gastrointestinal: Gastrointestinal: Denies abdominal pain, Denies nausea and Denies vomiting Genitourinary: Genitourinary: Denies hematuria, Denies dysuria, Denies flank pain, Denies urinary frequency, Denies urinary hesitancy, Denies urinary incontinence and Denies urinary urgency Exam Const: General: cooperative and comfortable Resp: Effort & Inspection: normal respiratory effort Cardio: Rate: regular rate GI: GI Palp: Yes Soft to palpation and No Tenderness to palpation present (GI) : General: Yes no CVA tenderness Urinary Catheter: Urinary Catheter: patent and draining and urine clear Extrem: Right lower extremity: no edema Left lower extremity: no edema Objective Data Vital Signs Vital Signs: Vital Signs - 24 hr 10/25/22 22:00 10/25/22 20:20 10/26/22 06:00 Temperature 96.4 F L 96.7 F L Pulse Rate 86 78 Respiratory Rate 18 18 Blood Pressure 115/67 144/67 H Pulse Oximetry 97 97 Oxygen Delivery Room Air 10/26/22 09:27 10/26/22 14:00 10/26/22 09:20 Temperature 98.4 F Pulse Rate 74 73 Respiratory Rate 22 H Blood Pressure 120/74 Pulse Oximetry 98 Oxygen Delivery Room Air Intake/Output Intake/Output: Intake & Output 10/23/22 10/24/22 10/25/22 10/26/22 23:59 23:59 23:59 23:59 Intake Total 1255 65287 1438 Output Total 1000 09817 2325 Balance 255 0211 -523 Meds/Results Medications: Active Medications Generic Name Dose Route Start Last Admin Trade Name Jose Manuelq PRN Reason Stop Dose Admin Acetaminophen 650 mg 10/24/22 16:35 Acetaminophen 325 Mg Tablet PO Q4H PRN Mild Pain (1-3) or Fever Acetaminophen/Aspirin/Caffeine 1 tablet 10/24/22 22:40 10/25/22 20:31 Acetaminophen/Aspirin/Caffeine 250-250-65 Mg Tablet PO 1 tablet Q6H PRN Administration Pain Rated 1-3 Atorvastatin Calcium 80 mg 10/25/22 09:00 10/26/22 09:27 Atorvastatin 40 Mg Tablet PO 80 mg DAILY MIKAYLA Administration Cefdinir 300 mg 10/26/22 21:00 Cefdinir 300 Mg Capsule PO 10/31/22 09:01 Q12HR [facility] Cyanocobalamin 1,000 mcg 10/25/22 09:00 10/16
[2022-10-26 16:21] LABS: Glucose Point of Care 153 mg/dl (65-105)
[2022-10-26] MEDS: CEFDINIR 300 MG CAPSULE PO (20:03)
[2022-10-26] MEDS: FERROUS SULFATE 325 MG TABLET DR PO (20:04)
[2022-10-26] MEDS: TAMSULOSIN HCL 0.4 MG CAPSULE PO (20:04)
[2022-10-26 20:10] VITALS: PULSE 73; RESP 22; O2SAT 98
[2022-10-26] MEDS: traZODone HCL 50 MG TABLET PO (20:13)
[2022-10-26] MEDS: ACETAMINOPHEN/ASPIRIN/CAFFEINE 250-250-65 MG TABLET 1 TABLET PO (20:14)
[2022-10-26 20:19] LABS: Glucose Point of Care 128 mg/dl (65-105)
[2022-10-26 21:09] LABS: Partial Thromboplastin Time 76.2 SECONDS (22.3-36.8)
[2022-10-26 22:00] VITALS: BP 129/82; PULSE 75; RESP 18; TEMP 36.4; O2SAT 98
[2022-10-26] MEDS: HEPARIN SOD/D5W 100 UNITS/ML 25,000 UNITS/250 ML BAG 7 UNITS IV CONT (22:43)
[2022-10-27 06:00] VITALS: BP 145/81; PULSE 69; RESP 20; TEMP 35.8; O2SAT 99
[2022-10-27 07:07] LABS: Anion Gap 4 mmol/L (8-16); Blood Urea Nitrogen 41 mg/dL (9-20); Calcium 9.3 mg/dL (8.4-10.2); Carbon Dioxide 26 mmol/L (22-30); Chloride 103 mmol/L (98-107); Estimated CRCL calculation 46 ml/min; Estimated Glomerular Filt Rate 54; Glucose 118 mg/dL (65-110); Potassium 4.3 mmol/L (3.4-5.0); Sodium 133 mmol/L (137-145)
[2022-10-27 07:33] LABS: Glucose Point of Care 133 mg/dl (65-105)
[2022-10-27 08:50] VITALS: PULSE 71
[2022-10-27] MEDS: ATORVASTATIN 40 MG TABLET 80 MG PO (08:50)
[2022-10-27] MEDS: METOPROLOL SUCCINATE EXT REL 50 MG TABCR PO (08:50)
[2022-10-27] MEDS: CYANOCOBALAMIN 1,000 MCG TABLET 1000 MCG PO (08:50)
[2022-10-27] MEDS: PANTOPRAZOLE 40 MG TABLET PO (08:50)
[2022-10-27] MEDS: CEFDINIR 300 MG CAPSULE PO ×2 (08:50→20:40)
[2022-10-27] MEDS: CHOLECALCIFEROL 1,000 UNITS TABLET 2000 UNITS PO (08:50)
[2022-10-27 11:24] LABS: Glucose Point of Care 129 mg/dl (65-105)
[2022-10-27 14:00] VITALS: BP 142/63; PULSE 76; RESP 20; TEMP 36.4; O2SAT 98
--- NOTE | 2022-10-27 14:19 | PM.IMPN ---
Progress Note: A&P Assessment and Plan (1) Hematuria: Qualifiers: Hematuria type: gross Qualified Code(s): R31.0 - Gross hematuria Code(s): R31.9 - Hematuria, unspecified Status: Acute Assessment and Plan: Start CBI, insert 3 way murillo. Repeat urine culture. Patient was switch from Nitrofurantoin to Bactrim d/t resistance. Get CT scan to rule out other sources of hematuria. (2) UTI (urinary tract infection): Code(s): N39.0 - Urinary tract infection, site not specified Status: Acute Assessment and Plan: Oral Omnicef (3) Hyperlipidemia: Code(s): E78.5 - Hyperlipidemia, unspecified Status: Acute (4) Hypertension: Qualifiers: Hypertension type: unspecified Qualified Code(s): I10 - Essential (primary) hypertension Code(s): I10 - Essential (primary) hypertension Status: Acute (5) History of mechanical aortic valve replacement: Code(s): Z95.2 - Presence of prosthetic heart valve Status: Acute Assessment and Plan: Heparin drip. Will need to resume his anticoagulation. Subjective Date/time seen: 10/27/22 14:19 Interval history: No complaints Exam Narrative: General appearance: Well-developed, well-nourished Skin: Normal color Head: Normocephalic, nontraumatic Eyes: Clear conjunctiva ENT: Oropharynx normal, ears normal, nose normal Neck: Supple, nontender Chest and respiratory: Airway patent, no respiratory distress, no accessory muscle use Heart: Regular rate/rhythm Abdomen: Soft, nontender, no organomegaly, quiet bowel sounds Vascular: Normal peripheral pulses, normal capillary refill. 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, no gross motor deficit Objective Data Vital Signs Vital Signs: Vital Signs - 24 hr 10/26/22 20:10 10/26/22 22:00 10/27/22 06:00 Temperature 97.6 F 96.4 F L Pulse Rate 73 75 69 Respiratory Rate 22 H 18 20 Blood Pressure 129/82 145/81 H Pulse Oximetry 98 98 99 Oxygen Delivery Room Air 10/27/22 08:50 10/27/22 08:40 Temperature Pulse Rate 71 Respiratory Rate Blood Pressure Pulse Oximetry Oxygen Delivery Room Air Intake/Output Intake/Output: Intake & Output 10/24/22 10/25/22 10/26/22 10/27/22 23:59 23:59 23:59 23:59 Intake Total 1255 90543 2160 1398 Output Total 1000 02696 2075 725 Balance 255 1536 -3139 971 Meds/Results Medications: Active Medications Generic Name Dose Route Start Last Admin Trade Name Freq PRN Reason Stop Dose Admin Acetaminophen 650 mg 10/24/22 16:35 Acetaminophen 325 Mg Tablet PO Q4H PRN Mild Pain (1-3) or Fever Acetaminophen/Aspirin/Caffeine 1 tablet 10/24/22 22:40 10/26/22 20:14 Acetaminophen/Aspirin/Caffeine 250-250-65 Mg Tablet PO 1 tablet Q6H PRN Administration Pain Rated 1-3 Atorvastatin Calcium 80 mg 10/25/22 09:00 10/27/22 08:50 Atorvastatin 40 Mg Tablet PO 80 mg DAILY MIKAYLA Administration Cefdinir 300 mg 10/26/22 21:00 10/27/22 08:50 Cefdinir 300 Mg Capsule PO 10/31/22 09:01 300 mg Q12HR MIKAYLA Administration Cyanocobalamin 1,000 mcg 10/25/22 09:00 10/27/22 08:50 Cyanocobalamin 1,000 Mcg Tablet PO 1,000 mcg QAM MIKAYLA Administration Ferrous Sulfate 325 mg 10/24/22 21:00 10/26/22 20:04 Ferrous Sulfate [address] PO 11/23/22 20:59 325 mg HS MIKAYLA Administration Folic Acid/Cyanocobalamin/pyridoxin 1 tab 10/24/22 21:00 10/26/22 20:04 Cyanocobalamin/Fa/Pyridoxine (Foltx) Tablet PO 11/23/22 20:59 1 tab HS MIKAYLA Administration Furosemide 20 mg 10/28/22 09:00 Fu
[2022-10-27 16:40] LABS: Glucose Point of Care 146 mg/dl (65-105)
--- NOTE | 2022-10-27 18:13 | WPDUROPN2 ---
Progress Note: A&P Assessment and Plan (1) Hematuria: Qualifiers: Hematuria type: gross Qualified Code(s): R31.0 - Gross hematuria Code(s): R31.9 - Hematuria, unspecified Status: Acute Assessment and Plan: Resolved at this time. PTT at 76 at this time. If urine remains clear can have voiding trial in a.m. with PVR checks by bladder scan. Tailor antibiotics to sensitivities based on culture. Patient will need a proximally 14 days worth of oral antibiotics. (2) Bilateral hydronephrosis: Code(s): N13.30 - Unspecified hydronephrosis Status: Acute Assessment and Plan: Appears chronic and is dated back to 2020. His renal function is down to 1.3 today if continues to improve will remove Lara catheter for voiding trial. Subjective Subjective Date/Time Seen: 10/27/22 18:13 Principal diagnosis: Hematuria with renal insufficiency Interval history: Delroy is doing better at this time. His urine is clear. Renal function is improving creatinine 1.3 today. Review of Systems Review of Systems: All systems reviewed & are unremarkable except as noted in HPI and below Exam Const: General: cooperative and comfortable Resp: Effort & Inspection: normal respiratory effort Urinary Catheter: Urinary Catheter: patent and draining and urine clear Objective Data Vital Signs Vital Signs: Vital Signs - 24 hr 10/26/22 20:10 10/26/22 22:00 10/27/22 06:00 Temperature 36.4 C 35.8 C L Pulse Rate 73 75 69 Respiratory Rate 22 H 18 20 Blood Pressure 129/82 145/81 H Pulse Oximetry 98 98 99 Oxygen Delivery Room Air 10/27/22 08:50 10/27/22 08:40 10/27/22 14:00 Temperature 36.4 C L Pulse Rate 71 76 Respiratory Rate 20 Blood Pressure 142/63 H Pulse Oximetry 98 Oxygen Delivery Room Air Intake/Output Intake/Output: Intake & Output 10/24/22 10/25/22 10/26/22 10/27/22 23:59 23:59 23:59 23:59 Intake Total 1255 93152 2160 1398 Output Total 1000 77329 8075 725 Balance 255 3622 -4207 578 Meds/Results Medications: Active Medications Generic Name Dose Route Start Last Admin Trade Name Freq PRN Reason Stop Dose Admin Acetaminophen 650 mg 10/24/22 16:35 Acetaminophen 325 Mg Tablet PO Q4H PRN Mild Pain (1-3) or Fever Acetaminophen/Aspirin/Caffeine 1 tablet 10/24/22 22:40 10/26/22 20:14 Acetaminophen/Aspirin/Caffeine 250-250-65 Mg Tablet PO 1 tablet Q6H PRN Administration Pain Rated 1-3 Atorvastatin Calcium 80 mg 10/25/22 09:00 10/27/22 08:50 Atorvastatin 40 Mg Tablet PO 80 mg DAILY MIKAYLA Administration Cefdinir 300 mg 10/26/22 21:00 10/27/22 08:50 Cefdinir 300 Mg Capsule PO 10/31/22 09:01 300 mg Q12HR MIKAYLA Administration Cyanocobalamin 1,000 mcg 10/25/22 09:00 10/27/22 08:50 Cyanocobalamin 1,000 Mcg Tablet PO 1,000 mcg QAM MIKAYLA Administration Ferrous Sulfate 325 mg 10/24/22 21:00 10/26/22 20:04 Ferrous Sulfate [address] PO 11/23/22 20:59 325 mg HS MIKAYLA Administration Folic Acid/Cyanocobalamin/pyridoxin 1 tab 10/24/22 21:00 10/26/22 20:04 Cyanocobalamin/Fa/Pyridoxine (Foltx) Tablet PO 11/23/22 20:59 1 tab HS MIKAYLA Administration Furosemide 20 mg 10/28/22 09:00 Furosemide 20 Mg Tablet PO DAILY MIKAYLA Heparin Sodium (Porcine) 3,000 units 10/24/22 17:57 Heparin Sodium 5,000 Units/Ml Vial IV PUSH PRN PRN aPTT 55 - 70 seconds Heparin Sodium (Porcine) 4,000 units 10/24/22 17:57 10/25/22 06:34 Heparin Sodium 5,000 Units/Ml Vial IV PUSH 4,000 units PRN PRN Administration aPTT less than 55 seconds Heparin Sodium/Dextrose 25,000 units in 250 mls @ 7 mls/hr 10/24/22 18:00 10/26/22 22:43 Heparin Sodium/D5w 100 Units/Ml IV CONT 700 units/hr .Q24H MIKAYLA 7 mls/hr Administration Protocol 700 UNITS/HR Metoprolol Succinate 50 mg 10/24/22 20:00 10/27/22 08:50 Metoprolol Succinate Ext Rel 50 Mg Tabcr PO 50 mg
[2022-10-27 20:00] VITALS: PULSE 80; RESP 16; O2SAT 96
[2022-10-27] MEDS: TAMSULOSIN HCL 0.4 MG CAPSULE PO (20:40)
[2022-10-27] MEDS: FERROUS SULFATE 325 MG TABLET DR PO (20:40)
[2022-10-27 21:18] VITALS: BP 135/77; PULSE 80; RESP 16; TEMP 36.4; O2SAT 96
[2022-10-27 21:30] LABS: Glucose Point of Care 174 mg/dl (65-105)
[2022-10-27 21:52] VITALS: O2SAT 96
[2022-10-28 00:57] LABS: Partial Thromboplastin Time 53.8 SECONDS (22.3-36.8)
[2022-10-28 06:00] VITALS: BP 131/78; PULSE 73; RESP 18; TEMP 36.2; O2SAT 97
[2022-10-28 08:06] LABS: Glucose Point of Care 119 mg/dl (65-105)
[2022-10-28] MEDS: CHOLECALCIFEROL 1,000 UNITS TABLET 2000 UNITS PO (09:02)
[2022-10-28 09:03] VITALS: PULSE 67
[2022-10-28] MEDS: CYANOCOBALAMIN 1,000 MCG TABLET 1000 MCG PO (09:03)
[2022-10-28] MEDS: FUROSEMIDE 20 MG TABLET PO (09:03)
[2022-10-28] MEDS: PANTOPRAZOLE 40 MG TABLET PO (09:03)
[2022-10-28] MEDS: METOPROLOL SUCCINATE EXT REL 50 MG TABCR PO (09:03)
[2022-10-28] MEDS: ATORVASTATIN 40 MG TABLET 80 MG PO (09:03)
[2022-10-28] MEDS: CEFDINIR 300 MG CAPSULE PO ×2 (09:03→20:28)
[2022-10-28 09:08] LABS: Anion Gap 2 mmol/L (8-16); Blood Urea Nitrogen 42 mg/dL (9-20); Calcium 9.5 mg/dL (8.4-10.2); Carbon Dioxide 25 mmol/L (22-30); Chloride 102 mmol/L (98-107); Estimated CRCL calculation 50 ml/min; Estimated Glomerular Filt Rate 59; Glucose 150 mg/dL (65-110); Potassium 4.3 mmol/L (3.4-5.0); Sodium 129 mmol/L (137-145)
[2022-10-28] MEDS: HEPARIN SOD/D5W 100 UNITS/ML 25,000 UNITS/250 ML BAG 7 UNITS IV CONT (10:22)
--- NOTE | 2022-10-28 10:55 | PM.IMPN ---
Progress Note: A&P Assessment and Plan (1) Hematuria: Qualifiers: Hematuria type: gross Qualified Code(s): R31.0 - Gross hematuria Code(s): R31.9 - Hematuria, unspecified Status: Acute Assessment and Plan: Start CBI, insert 3 way murillo. Repeat urine culture. Patient was switch from Nitrofurantoin to Bactrim d/t resistance. Get CT scan to rule out other sources of hematuria. 14 trial per Urology. Once able to void he can be discharged. (2) UTI (urinary tract infection): Code(s): N39.0 - Urinary tract infection, site not specified Status: Acute Assessment and Plan: Oral Omnicef (3) Hyperlipidemia: Code(s): E78.5 - Hyperlipidemia, unspecified Status: Acute (4) Hypertension: Qualifiers: Hypertension type: unspecified Qualified Code(s): I10 - Essential (primary) hypertension Code(s): I10 - Essential (primary) hypertension Status: Acute (5) History of mechanical aortic valve replacement: Code(s): Z95.2 - Presence of prosthetic heart valve Status: Acute Assessment and Plan: Heparin drip. Will need to resume his anticoagulation. Subjective Date/time seen: 10/28/22 10:55 Interval history: No new complaints Exam Narrative: General appearance: Well-developed, well-nourished Skin: Normal color Head: Normocephalic, nontraumatic Eyes: Clear conjunctiva ENT: Oropharynx normal, ears normal, nose normal Neck: Supple, nontender Chest and respiratory: Airway patent, no respiratory distress, no accessory muscle use Heart: Regular rate/rhythm Abdomen: Soft, nontender, no organomegaly, quiet bowel sounds Vascular: Normal peripheral pulses, normal capillary refill. 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, no gross motor deficit Objective Data Vital Signs Vital Signs: Vital Signs - 24 hr 10/27/22 14:00 10/27/22 21:18 10/27/22 20:00 Temperature 97.5 F L 97.6 F Pulse Rate 76 80 80 Respiratory Rate 20 16 16 Blood Pressure 142/63 H 135/77 Pulse Oximetry 98 96 96 Oxygen Delivery Room Air 10/27/22 21:52 10/28/22 06:00 10/28/22 09:03 Temperature 97.2 F L Pulse Rate 73 67 Respiratory Rate 18 Blood Pressure 131/78 Pulse Oximetry 96 97 Oxygen Delivery Room Air Intake/Output Intake/Output: Intake & Output 10/25/22 10/26/22 10/27/22 10/28/22 23:59 23:59 23:59 23:59 Intake Total 68383 2160 3138 1130 Output Total 7160722 8703 6709 1300 Balance 9903 -8731 813 -950 Meds/Results Medications: Active Medications Generic Name Dose Route Start Last Admin Trade Name Freq PRN Reason Stop Dose Admin Acetaminophen 650 mg 10/24/22 16:35 Acetaminophen 325 Mg Tablet PO Q4H PRN Mild Pain (1-3) or Fever Acetaminophen/Aspirin/Caffeine 1 tablet 10/24/22 22:40 10/26/22 20:14 Acetaminophen/Aspirin/Caffeine 250-250-65 Mg Tablet PO 1 tablet Q6H PRN Administration Pain Rated 1-3 Atorvastatin Calcium 80 mg 10/25/22 09:00 10/28/22 09:03 Atorvastatin 40 Mg Tablet PO 80 mg DAILY MIKAYLA Administration Cefdinir 300 mg 10/26/22 21:00 10/28/22 09:03 Cefdinir 300 Mg Capsule PO 10/31/22 09:01 300 mg Q12HR MIKAYLA Administration Cyanocobalamin 1,000 mcg 10/25/22 09:00 10/28/22 09:03 Cyanocobalamin 1,000 Mcg Tablet PO 1,000 mcg QAM MIKAYLA Administration Ferrous Sulfate 325 mg 10/24/22 21:00 10/27/22 20:40 Ferrous Sulfate [address] PO 11/23/22 20:59 325 mg HS MIKAYLA Administration Folic Acid/Cyanocobalamin/pyridoxin 1 tab 10/24/22 21:00 10/27/22 20:40 Cyanocobalamin/Fa/Pyridoxin
[2022-10-28 11:43] LABS: Glucose Point of Care 111 mg/dl (65-105)
[2022-10-28 14:00] VITALS: BP 119/79; PULSE 116; RESP 24; TEMP 37.2; O2SAT 99
[2022-10-28 17:10] LABS: Glucose Point of Care 126 mg/dl (65-105)
[2022-10-28] MEDS: TAMSULOSIN HCL 0.4 MG CAPSULE PO (20:28)
[2022-10-28] MEDS: FERROUS SULFATE 325 MG TABLET DR PO (20:28)
[2022-10-28] MEDS: ACETAMINOPHEN/ASPIRIN/CAFFEINE 250-250-65 MG TABLET 1 TABLET PO (20:32)
[2022-10-28] MEDS: traZODone HCL 50 MG TABLET PO (20:32)
[2022-10-28 21:41] LABS: Glucose Point of Care 137 mg/dl (65-105)
[2022-10-28 22:00] VITALS: BP 113/65; PULSE 70; RESP 18; TEMP 36.5; O2SAT 96
--- NOTE | 2022-10-28 22:25 | PC.NURSE ---
Pt voided in the urinal this shift and a bladder scan was done with >500 post void residual. Per day shift RN, to reinsert murillo catheter if bladder scan was >500. Murillo catheter reinserted and immediately obtained 525ml of clear, yellow urine.
[2022-10-29 00:39] LABS: Partial Thromboplastin Time 53.1 SECONDS (22.3-36.8)
[2022-10-29] MEDS: HEPARIN SOD/D5W 100 UNITS/ML 25,000 UNITS/250 ML BAG 10 UNITS IV CONT (00:44)
[2022-10-29] MEDS: HEPARIN SODIUM 5,000 UNITS/ML VIAL 4000 UNITS IV PUSH ×2 (00:49→12:47)
--- NOTE | 2022-10-29 00:56 | PC.NURSE ---
Upon assessing PTT lab values and the heparin titration protocol, this RN noticed the last PTT drawn at 0014 10/28 and was sub therapeutic. Two PTT lab draws were therapeutic on 10/26 but none had been drawn on 10/27. A stat PTT was ordered and drawn at 0016 10/[address] Paul and the value was again sub therapeutic. The Heparin drip was titrated according to protocol and another PTT scheduled to be drawn at 0600.
[2022-10-29 06:00] VITALS: BP 134/77; PULSE 71; RESP 18; TEMP 36.2; O2SAT 98
[2022-10-29 06:44] LABS: Partial Thromboplastin Time 93.1 SECONDS (22.3-36.8)
[2022-10-29 08:04] LABS: Glucose Point of Care 117 mg/dl (65-105)
[2022-10-29] MEDS: CYANOCOBALAMIN 1,000 MCG TABLET 1000 MCG PO (09:05)
[2022-10-29] MEDS: ATORVASTATIN 40 MG TABLET 80 MG PO (09:05)
[2022-10-29] MEDS: PANTOPRAZOLE 40 MG TABLET PO (09:05)
[2022-10-29 09:06] VITALS: PULSE 83
[2022-10-29] MEDS: FUROSEMIDE 20 MG TABLET PO (09:06)
[2022-10-29] MEDS: CHOLECALCIFEROL 1,000 UNITS TABLET 2000 UNITS PO (09:06)
[2022-10-29] MEDS: CEFDINIR 300 MG CAPSULE PO ×2 (09:06→21:03)
[2022-10-29] MEDS: METOPROLOL SUCCINATE EXT REL 50 MG TABCR PO (09:06)
--- NOTE | 2022-10-29 11:57 | PM.IMPN ---
Progress Note: A&P Assessment and Plan (1) Hematuria: Qualifiers: Hematuria type: gross Qualified Code(s): R31.0 - Gross hematuria Code(s): R31.9 - Hematuria, unspecified Status: Acute Assessment and Plan: 2/2 AC and uti abx (2) UTI (urinary tract infection): Code(s): N39.0 - Urinary tract infection, site not specified Status: Acute Assessment and Plan: Oral Omnicef (3) Hyperlipidemia: Code(s): E78.5 - Hyperlipidemia, unspecified Status: Acute (4) Hypertension: Qualifiers: Hypertension type: unspecified Qualified Code(s): I10 - Essential (primary) hypertension Code(s): I10 - Essential (primary) hypertension Status: Acute (5) History of mechanical aortic valve replacement: Code(s): Z95.2 - Presence of prosthetic heart valve Status: Acute Assessment and Plan: Heparin drip. Will need to resume his anticoagulation. Stoop heparin once INR close to goal. Subjective Date/time seen: 10/29/22 11:57 Interval history: no new issues Exam Narrative: General appearance: Well-developed, well-nourished Skin: Normal color Head: Normocephalic, nontraumatic Eyes: Clear conjunctiva ENT: Oropharynx normal, ears normal, nose normal Neck: Supple, nontender Chest and respiratory: Airway patent, no respiratory distress, no accessory muscle use Heart: Regular rate/rhythm Abdomen: Soft, nontender, no organomegaly, quiet bowel sounds Vascular: Normal peripheral pulses, normal capillary refill. 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, no gross motor deficit Objective Data Vital Signs Vital Signs: Vital Signs - 24 hr 10/28/22 14:00 10/28/22 22:00 10/29/22 06:00 Temperature 98.9 F 97.7 F 97.2 F L Pulse Rate 116 H 70 71 Respiratory Rate 24 H 18 18 Blood Pressure 119/79 113/65 134/77 Pulse Oximetry 99 96 98 10/29/22 09:06 Temperature Pulse Rate 83 Respiratory Rate Blood Pressure Pulse Oximetry Intake/Output Intake/Output: Intake & Output 10/26/22 10/27/22 10/28/22 10/29/22 23:59 23:59 23:59 23:59 Intake Total 2164 0688 4610 770 Output Total 0096 6160 2154 1350 Balance -6368 813 2173 -724 Meds/Results Medications: Active Medications Generic Name Dose Route Start Last Admin Trade Name Freq PRN Reason Stop Dose Admin Acetaminophen 650 mg 10/24/22 16:35 Acetaminophen 325 Mg Tablet PO Q4H PRN Mild Pain (1-3) or Fever Acetaminophen/Aspirin/Caffeine 1 tablet 10/24/22 22:40 10/28/22 20:32 Acetaminophen/Aspirin/Caffeine 250-250-65 Mg Tablet PO 1 tablet Q6H PRN Administration Pain Rated 1-3 Atorvastatin Calcium 80 mg 10/25/22 09:00 10/29/22 09:05 Atorvastatin 40 Mg Tablet PO 80 mg DAILY MIKAYLA Administration Cefdinir 300 mg 10/26/22 21:00 10/29/22 09:06 Cefdinir 300 Mg Capsule PO 10/31/22 09:01 300 mg Q12HR MIKAYLA Administration Cyanocobalamin 1,000 mcg 10/25/22 09:00 10/29/22 09:05 Cyanocobalamin 1,000 Mcg Tablet PO 1,000 mcg QAM MIKAYLA Administration Ferrous Sulfate 325 mg 10/24/22 21:00 10/28/22 20:28 Ferrous Sulfate [address] PO 11/23/22 20:59 325 mg HS MIKAYLA Administration Folic Acid/Cyanocobalamin/pyridoxin 1 tab 10/24/22 21:00 10/28/22 20:28 Cyanocobalamin/Fa/Pyridoxine (Foltx) Tablet PO 11/23/22 20:59 1 tab HS MIKAYLA Administration Furosemide 20 mg 10/28/22 09:00 10/29/22 09:06 Furosemide 20 Mg Tablet PO 20 mg DAILY MIKAYLA Administration Heparin Sodium (Porcine) 3,000 units 10/24/22 17:57 Heparin Sodium 5,000 Units/Ml Vial IV PU
[2022-10-29 12:03] LABS: Glucose Point of Care 125 mg/dl (65-105)
[2022-10-29 12:37] LABS: INR 1.2; Prothrombin Time 15.8 Seconds (11.1-14.7)
[2022-10-29 12:38] LABS: Partial Thromboplastin Time 54.6 SECONDS (22.3-36.8)
--- NOTE | 2022-10-29 13:22 | WPDUROPN2 ---
Progress Note: A&P Assessment and Plan (1) Hematuria: Qualifiers: Hematuria type: gross Qualified Code(s): R31.0 - Gross hematuria Code(s): R31.9 - Hematuria, unspecified Status: Acute Assessment and Plan: Resolved (2) Retention of urine: Code(s): R33.9 - Retention of urine, unspecified Status: Acute Assessment and Plan: Continue Tamsulosin, start Finasteride. Stop Myrbetriq. We discussed going home with leg bag, stopping Myrbetriq and doing another voiding trial in one week, as I suspect the Myrbetriq is contributing to his retention. Ok to discharge at anytime with leg bag and catheter teaching per Urology. (3) UTI (urinary tract infection): Code(s): N39.0 - Urinary tract infection, site not specified Status: Acute Assessment and Plan: Recommend 14 days of appropriate antibiotic therapy. Subjective Subjective Date/Time Seen: 10/29/22 13:22 Principal diagnosis: Hematuria with renal insufficiency Interval history: Delroy is doing better at this time. His urine is clear, but he failed a voiding trial yesterday and had to have his catheter replaced. He continues taking Tamsulosin and Myrbetriq. Renal function is improving creatinine 1.2. We discussed going home with leg bag, stopping Myrbetriq and doing another voiding trial in one week, as I suspect the Myrbetriq is contributing to his retention. Review of Systems Cardiovascular: Cardiovascular: Denies chest pain Respiratory: Respiratory: Reports no additional respiratory complaints Gastrointestinal: Gastrointestinal: Denies abdominal pain, Denies nausea and Denies vomiting Genitourinary: Genitourinary: Denies hematuria, Denies flank pain and Reports urinary hesitancy Exam Const: General: cooperative and comfortable Resp: Effort & Inspection: normal respiratory effort Cardio: Rate: regular rate GI: GI Palp: Yes Soft to palpation and No Tenderness to palpation present (GI) : General: Yes no CVA tenderness Meatus: meatus normal Urinary Catheter: Urinary Catheter: patent and draining and urine clear Extrem: Right lower extremity: no edema Left lower extremity: no edema Objective Data Vital Signs Vital Signs: Vital Signs - 24 hr 10/28/22 14:00 10/28/22 22:00 10/29/22 06:00 Temperature 98.9 F 97.7 F 97.2 F L Pulse Rate 116 H 70 71 Respiratory Rate 24 H 18 18 Blood Pressure 119/79 113/65 134/77 Pulse Oximetry 99 96 98 10/29/22 09:06 Temperature Pulse Rate 83 Respiratory Rate Blood Pressure Pulse Oximetry Intake/Output Intake/Output: Intake & Output 10/26/22 10/27/22 10/28/22 10/29/22 23:59 23:59 23:59 23:59 Intake Total 2160 3138 4610 770 Output Total 4836 2325 2150 1350 Balance -2715 813 2460 -580 Meds/Results Medications: Active Medications Generic Name Dose Route Start Last Admin Trade Name Freq PRN Reason Stop Dose Admin Acetaminophen 650 mg 10/24/22 16:35 Acetaminophen 325 Mg Tablet PO Q4H PRN Mild Pain (1-3) or Fever Acetaminophen/Aspirin/Caffeine 1 tablet 10/24/22 22:40 10/28/22 20:32 Acetaminophen/Aspirin/Caffeine 250-250-65 Mg Tablet PO 1 tablet Q6H PRN Administration Pain Rated 1-3 Atorvastatin Calcium 80 mg 10/25/22 09:00 10/29/22 09:05 Atorvastatin 40 Mg Tablet PO 80 mg DAILY MIKAYLA Administration Cefdinir 300 mg 10/26/22 21:00 10/29/22 09:06 Cefdinir 300 Mg Capsule PO 11/05/22 20:59 300 mg Q12HR MIKAYLA Administration Cyanocobalamin 1,000 mcg 10/25/22 09:00 10/29/22 09:05 Cyanocobalamin 1,000 Mcg Tablet PO 1,000 mcg QAM MIKAYLA Administration Ferrous Sulfate 325 mg 10/24/22 21:00 10/28/22 20:28 Ferrous Sulfate [address] PO 11/23/22 20:59 325 mg HS MIKAYLA Administration Folic Acid/Cyanocobalamin/pyridoxin 1 tab 10/24/22 21:00 10/28/22 20:28 Cyanocobalamin/Fa/Pyridoxine (Foltx) Tablet PO 11/23/22 20:59 1 tab HS MIKAYLA Administration Furosemide 2
[2022-10-29 14:25] VITALS: BP 107/62; PULSE 77; RESP 18; TEMP 36.5; O2SAT 95
[2022-10-29] MEDS: HEPARIN SOD/D5W 100 UNITS/ML 25,000 UNITS/250 ML BAG 13 UNITS IV CONT (16:36)
[2022-10-29 17:08] LABS: Glucose Point of Care 171 mg/dl (65-105)
[2022-10-29] MEDS: WARFARIN (*PBKC) 4 MG TABLET PO (17:13)
[2022-10-29 18:52] LABS: Partial Thromboplastin Time 113.9 SECONDS (22.3-36.8)
[2022-10-29] MEDS: TAMSULOSIN HCL 0.4 MG CAPSULE PO (21:03)
[2022-10-29] MEDS: FERROUS SULFATE 325 MG TABLET DR PO (21:03)
[2022-10-29 21:05] LABS: Glucose Point of Care 178 mg/dl (65-105)
[2022-10-29 22:00] VITALS: BP 114/69; PULSE 76; RESP 18; TEMP 36.3; O2SAT 98
[2022-10-30] MEDS: traZODone HCL 50 MG TABLET PO ×2 (00:32→20:27)
[2022-10-30 02:48] LABS: INR 1.2; Prothrombin Time 15.4 Seconds (11.1-14.7)
[2022-10-30 03:36] LABS: Partial Thromboplastin Time 77.2 SECONDS (22.3-36.8)
[2022-10-30 05:30] VITALS: BP 132/66; PULSE 68; RESP 18; TEMP 36.2; O2SAT 96
[2022-10-30 08:07] LABS: Glucose Point of Care 122 mg/dl (65-105)
[2022-10-30 08:39] LABS: INR 1.1; Prothrombin Time 14.9 Seconds (11.1-14.7)
[2022-10-30] MEDS: FUROSEMIDE 20 MG TABLET PO (09:49)
[2022-10-30] MEDS: CYANOCOBALAMIN 1,000 MCG TABLET 1000 MCG PO (09:49)
[2022-10-30] MEDS: WARFARIN (*PBKC) 2 MG TABLET PO (09:49)
[2022-10-30] MEDS: PANTOPRAZOLE 40 MG TABLET PO (09:49)
[2022-10-30] MEDS: CHOLECALCIFEROL 1,000 UNITS TABLET 2000 UNITS PO (09:49)
[2022-10-30] MEDS: METOPROLOL SUCCINATE EXT REL 50 MG TABCR PO (09:49)
[2022-10-30] MEDS: ATORVASTATIN 40 MG TABLET 80 MG PO (09:49)
[2022-10-30] MEDS: CEFDINIR 300 MG CAPSULE PO ×2 (09:49→20:27)
[2022-10-30] MEDS: FINASTERIDE 5 MG TABLET PO (09:49)
--- NOTE | 2022-10-30 11:16 | PM.IMPN ---
Progress Note: A&P Assessment and Plan (1) Hematuria: Qualifiers: Hematuria type: gross Qualified Code(s): R31.0 - Gross hematuria Code(s): R31.9 - Hematuria, unspecified Status: Acute Assessment and Plan: 2/2 AC and uti abx -Omnicef (2) UTI (urinary tract infection): Code(s): N39.0 - Urinary tract infection, site not specified Status: Acute Assessment and Plan: Oral Omnicef (3) Hyperlipidemia: Code(s): E78.5 - Hyperlipidemia, unspecified Status: Acute (4) Hypertension: Qualifiers: Hypertension type: unspecified Qualified Code(s): I10 - Essential (primary) hypertension Code(s): I10 - Essential (primary) hypertension Status: Acute (5) History of mechanical aortic valve replacement: Code(s): Z95.2 - Presence of prosthetic heart valve Status: Acute Assessment and Plan: Heparin drip. Will need to resume his anticoagulation. Stop heparin once INR close to goal. Warfarin Subjective Date/time seen: 10/30/22 11:16 Interval history: No new complaints Exam Narrative: General appearance: Well-developed, well-nourished Skin: Normal color Head: Normocephalic, nontraumatic Eyes: Clear conjunctiva ENT: Oropharynx normal, ears normal, nose normal Neck: Supple, nontender Chest and respiratory: Airway patent, no respiratory distress, no accessory muscle use Heart: Regular rate/rhythm Abdomen: Soft, nontender, no organomegaly, quiet bowel sounds Vascular: Normal peripheral pulses, normal capillary refill. 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, no gross motor deficit Objective Data Vital Signs Vital Signs: Vital Signs - 24 hr 10/29/22 14:25 10/29/22 22:00 10/30/22 05:30 Temperature 97.7 F 97.3 F L 97.1 F L Pulse Rate 77 76 68 Respiratory Rate 18 18 18 Blood Pressure 107/62 114/69 132/66 Pulse Oximetry 95 98 96 Intake/Output Intake/Output: Intake & Output 10/27/22 10/28/22 10/29/22 10/30/22 23:59 23:59 23:59 23:59 Intake Total 3138 4610 2600 600 Output Total 2325 2150 2600 1450 Balance 813 2460 0 -850 Meds/Results Medications: Active Medications Generic Name Dose Route Start Last Admin Trade Name Freq PRN Reason Stop Dose Admin Acetaminophen 650 mg 10/24/22 16:35 Acetaminophen 325 Mg Tablet PO Q4H PRN Mild Pain (1-3) or Fever Acetaminophen/Aspirin/Caffeine 1 tablet 10/24/22 22:40 10/28/22 20:32 Acetaminophen/Aspirin/Caffeine 250-250-65 Mg Tablet PO 1 tablet Q6H PRN Administration Pain Rated 1-3 Atorvastatin Calcium 80 mg 10/25/22 09:00 10/30/22 09:49 Atorvastatin 40 Mg Tablet PO 80 mg DAILY MIKAYLA Administration Cefdinir 300 mg 10/26/22 21:00 10/30/22 09:49 Cefdinir 300 Mg Capsule PO 11/05/22 20:59 300 mg Q12HR MIKAYLA Administration Cyanocobalamin 1,000 mcg 10/25/22 09:00 10/30/22 09:49 Cyanocobalamin 1,000 Mcg Tablet PO 1,000 mcg QAM MIKAYLA Administration Ferrous Sulfate 325 mg 10/24/22 21:00 10/29/22 21:03 Ferrous Sulfate [address] PO 11/23/22 20:59 325 mg HS MIKAYLA Administration Finasteride 5 mg 10/30/22 09:00 10/30/22 09:49 Finasteride 5 Mg Tablet PO 5 mg QAM MIKAYLA Administration Folic Acid/Cyanocobalamin/pyridoxin 1 tab 10/24/22 21:00 10/29/22 21:03 Cyanocobalamin/Fa/Pyridoxine (Foltx) Tablet PO 11/23/22 20:59 1 tab HS MIKAYLA Administration Furosemide 20 mg 10/28/22 09:00 10/30/22 09:49 Furosemide 20 Mg Tablet PO 20 mg DAILY MIKAYLA Administration Heparin Sodium (Porcine) 3,000 units 10/24/22 17:57 Heparin Sod
[2022-10-30 11:51] LABS: Glucose Point of Care 101 mg/dl (65-105)
[2022-10-30 14:25] VITALS: BP 101/73; PULSE 70; RESP 14; TEMP 36.2; O2SAT 100
[2022-10-30] MEDS: HEPARIN SOD/D5W 100 UNITS/ML 25,000 UNITS/250 ML BAG 11 UNITS IV CONT (14:42)
[2022-10-30 16:56] LABS: Glucose Point of Care 117 mg/dl (65-105)
[2022-10-30] MEDS: WARFARIN (*PBKC) 4 MG TABLET PO (17:49)
[2022-10-30] MEDS: TAMSULOSIN HCL 0.4 MG CAPSULE PO (20:27)
[2022-10-30] MEDS: FERROUS SULFATE 325 MG TABLET DR PO (20:27)
[2022-10-30 22:00] VITALS: BP 127/70; PULSE 68; RESP 12; TEMP 36.3; O2SAT 99
[2022-10-31 00:29] LABS: Glucose Point of Care 176 mg/dl (65-105)
[2022-10-31 06:00] VITALS: BP 143/76; PULSE 68; RESP 14; TEMP 36.1; O2SAT 100
[2022-10-31 07:04] LABS: INR 1.2; Prothrombin Time 15.7 Seconds (11.1-14.7)
[2022-10-31 07:06] LABS: Partial Thromboplastin Time 71.7 SECONDS (22.3-36.8)
[2022-10-31 07:59] LABS: Glucose Point of Care 135 mg/dl (65-105)
[2022-10-31] MEDS: CHOLECALCIFEROL 1,000 UNITS TABLET 2000 UNITS PO (09:37)
[2022-10-31] MEDS: PANTOPRAZOLE 40 MG TABLET PO (09:38)
[2022-10-31] MEDS: METOPROLOL SUCCINATE EXT REL 50 MG TABCR PO (09:38)
[2022-10-31] MEDS: CYANOCOBALAMIN 1,000 MCG TABLET 1000 MCG PO (09:38)
[2022-10-31] MEDS: CEFDINIR 300 MG CAPSULE PO ×2 (09:38→21:10)
[2022-10-31] MEDS: ATORVASTATIN 40 MG TABLET 80 MG PO (09:38)
[2022-10-31] MEDS: FINASTERIDE 5 MG TABLET PO (09:38)
[2022-10-31] MEDS: FUROSEMIDE 20 MG TABLET PO (10:47)
[2022-10-31 11:39] LABS: Glucose Point of Care 164 mg/dl (65-105)
[2022-10-31] MEDS: HEPARIN SOD/D5W 100 UNITS/ML 25,000 UNITS/250 ML BAG 11 UNITS IV CONT (12:39)
[2022-10-31 14:00] VITALS: BP 113/64; PULSE 79; RESP 16; TEMP 36.6; O2SAT 98
--- NOTE | 2022-10-31 16:06 | PM.IMPN ---
Progress Note: A&P Assessment and Plan (1) Hematuria: Qualifiers: Hematuria type: gross Qualified Code(s): R31.0 - Gross hematuria Code(s): R31.9 - Hematuria, unspecified Status: Acute Assessment and Plan: Patient presents with hematuria. Lara catheter was placed for urine retention. Urinalysis was consistent with UTI. Neurology was consulted. CBI started. Urine has cleared. Sources probably from UTI. Urine culture growing Proteus that was pansensitive. Continue Omnicef to complete a course of antibiotics. (2) Retention of urine: Code(s): R33.9 - Retention of urine, unspecified Status: Acute Assessment and Plan: Patient noted to have urine retention. Urology was consulted. Flomax was continued. Finasteride was started. Myrbetriq stopped. Lara catheter trial was unsuccessful. Plan for home with Lara catheter. (3) History of mechanical aortic valve replacement: Code(s): Z95.2 - Presence of prosthetic heart valve Status: Acute Assessment and Plan: Patient has mechanical aortic valve. He was placed on a heparin drip and his Coumadin stopped. Hematuria has resolved. Coumadin has been resumed. Continue heparin drip until INR is therapeutic. (4) UTI (urinary tract infection): Code(s): N39.0 - Urinary tract infection, site not specified Status: Acute Assessment and Plan: UA noted. Urine culture growing Proteus that is pansensitive. Continue antibiotics. (5) Hypertension: Qualifiers: Hypertension type: unspecified Qualified Code(s): I10 - Essential (primary) hypertension Code(s): I10 - Essential (primary) hypertension Status: Acute Assessment and Plan: Patient's blood pressure was reviewed on 10/31 Blood pressure remains well controlled. Will continue to monitor Subjective Date/time seen: 10/31/22 16:06 Interval history: 72yo male with mechanical aortic valve, HTN and recent (August) pericardectomy here for hematuria. Assuming care. Chart reviewed. Patient slept poorly because his roommate was noisy. He has been up ambulating in the halls. Normal bowel movements. No chest pain or shortness of breath Exam Narrative: AF 96.9 143/76 68 14 100% ra Gen - NARD Chest - CTA bilaterally, nml RR CV - RRR with mechanical S2 Abd - Soft, NT/ND, Positive BS - Lara secured draining clear yellow urine Ext - No pedal edema Neuro - Alert and oriented. Nonfocal exam. Psych - Nml mood and affect Skin - chronic venous stasis skin changes bilateral LE Objective Data Vital Signs Vital Signs: Vital Signs - 24 hr 10/30/22 22:00 10/31/22 06:00 Temperature 97.4 F L 96.9 F L Pulse Rate 68 68 Respiratory Rate 12 14 Blood Pressure 127/70 143/76 H Pulse Oximetry 99 100 Intake/Output Intake/Output: Intake & Output 10/28/22 10/29/22 10/30/22 10/31/22 23:59 23:59 23:59 23:59 Intake Total 4610 2600 1640 1610 Output Total 2150 2600 3000 2000 Balance 2460 0 -1360 -390 Meds/Results Medications: Active Medications Generic Name Dose Route Start Last Admin Trade Name Freq PRN Reason Stop Dose Admin Acetaminophen 650 mg 10/24/22 16:35 Acetaminophen 325 Mg Tablet PO Q4H PRN Mild Pain (1-3) or Fever Acetaminophen/Aspirin/Caffeine 1 tablet 10/24/22 22:40 10/28/22 20:32 Acetaminophen/Aspirin/Caffeine 250-250-65 Mg Tablet PO 1 tablet Q6H PRN Administration Pain Rated 1-3 Atorvastatin Calcium 80 mg 10/25/22 09:00 10/31/22 09:38 Atorvastatin 40 Mg Tablet PO 80 mg DAILY MIKAYLA Administration Cefdinir 300 mg 10/26/22 21:00 10/31/22 09:38 Cefdinir 300 Mg Capsule PO 11/05/22 20:59 300 mg Q12HR MIKAYLA Administration Cyanocobalamin 1,000 mcg 10/25/22 09:00 10/31/22 09:38 Cyanocobalamin 1,000 Mcg Tablet PO 1,000 mcg QAM MIKAYLA Administration Ferrous Sulfate 325 mg 10/24/22 21:00 10/30/22 20:27 Lesli
[2022-10-31 16:55] LABS: Glucose Point of Care 152 mg/dl (65-105)
[2022-10-31] MEDS: WARFARIN (*PBKC) 2 MG TABLET PO (16:59)
[2022-10-31] MEDS: WARFARIN (*PBKC) 4 MG TABLET PO (17:24)
[2022-10-31] MEDS: ASPIRIN 81 MG ENTERIC TABLET PO (21:10)
[2022-10-31] MEDS: TAMSULOSIN HCL 0.4 MG CAPSULE PO (21:10)
[2022-10-31] MEDS: FERROUS SULFATE 325 MG TABLET DR PO (21:10)
[2022-10-31 21:25] VITALS: BP 132/76; PULSE 71; RESP 18; TEMP 36.6; O2SAT 100
[2022-10-31 23:40] VITALS: O2SAT 99
[2022-11-01 05:23] VITALS: BP 110/69; PULSE 68; RESP 16; TEMP 36.7; O2SAT 99
[2022-11-01 06:26] LABS: Basophils Absolute Auto 0.2 K/mm3 (0.0-0.1); Basophils Percent Auto 2.3 % (0.2-1.2); Eosinophils Absolute Auto 1.3 K/mm3 (0-0.3); Hematocrit 33.6 % (42.0-52.0); Hemoglobin 10.9 g/dL (14.0-18.0); Immature Granulocyte Absolute 0.13 K/mm3 (0.00-0.031); Immature Granulocyte Percent A 1.2 % (0-0.5); Lymphocytes Absolute Auto 0.84 K/mm3 (0.9-3.2); Lymphocytes Percent Auto 7.9 % (18.3-44.2); Mean Corpuscular HGB Conc 32.4 g/dl (32-36); Mean Corpuscular Hemoglobin 30.1 pg (26-34); Mean Corpuscular Volume 92.8 fl (80-100); Mean Platelet Volume 9.2 fl (7.4-10.4); Monocytes Absolute Auto 1.1 K/mm3 (0.1-0.6); Monocytes Percent Auto 10.5 % (2.6-8.5); Neutrophils Percent Auto 66.1 % (45.5-73.1); Platelet Count Result 259 k/mm3 (150-375); Red Blood Count 3.62 M/mm3 (4.6-6.20); Red Cell Distribution Width 16.6 % (11.5-14.5); White Blood Count 10.6 K/mm3 (4.5-10.0)
[2022-11-01 06:35] LABS: INR 1.3; Prothrombin Time 17.1 Seconds (11.1-14.7)
[2022-11-01 07:00] LABS: Anion Gap 3 mmol/L (8-16); Blood Urea Nitrogen 38 mg/dL (9-20); Calcium 8.9 mg/dL (8.4-10.2); Carbon Dioxide 29 mmol/L (22-30); Chloride 100 mmol/L (98-107); Estimated CRCL calculation 50 ml/min; Estimated Glomerular Filt Rate 59; Glucose 166 mg/dL (65-110); Potassium 4.2 mmol/L (3.4-5.0); Sodium 132 mmol/L (137-145)
[2022-11-01 07:57] LABS: Glucose Point of Care 105 mg/dl (65-105)
[2022-11-01] MEDS: ATORVASTATIN 40 MG TABLET 80 MG PO (09:08)
[2022-11-01] MEDS: FINASTERIDE 5 MG TABLET PO (09:08)
[2022-11-01] MEDS: CHOLECALCIFEROL 1,000 UNITS TABLET 2000 UNITS PO (09:08)
[2022-11-01] MEDS: CYANOCOBALAMIN 1,000 MCG TABLET 1000 MCG PO (09:08)
[2022-11-01] MEDS: CEFDINIR 300 MG CAPSULE PO ×2 (09:08→21:34)
[2022-11-01] MEDS: FUROSEMIDE 20 MG TABLET PO (09:09)
[2022-11-01 09:10] VITALS: PULSE 68
[2022-11-01] MEDS: METOPROLOL SUCCINATE EXT REL 50 MG TABCR PO (09:10)
[2022-11-01] MEDS: PANTOPRAZOLE 40 MG TABLET PO (09:10)
[2022-11-01] MEDS: HEPARIN SOD/D5W 100 UNITS/ML 25,000 UNITS/250 ML BAG 11 UNITS IV CONT (11:01)
[2022-11-01 11:52] LABS: Glucose Point of Care 105 mg/dl (65-105)
[2022-11-01 14:00] VITALS: BP 130/71; PULSE 80; RESP 16; TEMP 37.4; O2SAT 99
--- NOTE | 2022-11-01 14:23 | PM.IMPN ---
Progress Note: A&P Assessment and Plan (1) Hematuria: Qualifiers: Hematuria type: gross Qualified Code(s): R31.0 - Gross hematuria Code(s): R31.9 - Hematuria, unspecified Status: Acute Assessment and Plan: Patient presents with hematuria. Lara catheter was placed for urine retention. Urinalysis was consistent with UTI. Neurology was consulted. CBI started. Urine has cleared. Sources probably from UTI. Urine culture growing Proteus that was pansensitive. CBI weaned off. Continue Omnicef to complete a course of antibiotics. (2) Retention of urine: Code(s): R33.9 - Retention of urine, unspecified Status: Acute Assessment and Plan: Patient noted to have urine retention. Urology was consulted. Flomax was continued. Finasteride was started. Myrbetriq stopped. Lara catheter trial was unsuccessful. Plan for home with Lara catheter. (3) History of mechanical aortic valve replacement: Code(s): Z95.2 - Presence of prosthetic heart valve Status: Acute Assessment and Plan: Patient has mechanical aortic valve. He was placed on a heparin drip and his Coumadin stopped. Hematuria has resolved. Coumadin has been resumed. Continue heparin drip until INR is therapeutic. Extra Coumadin today. (4) UTI (urinary tract infection): Code(s): N39.0 - Urinary tract infection, site not specified Status: Acute Assessment and Plan: UA noted. Urine culture growing Proteus that is pansensitive. Continue antibiotics. (5) Hypertension: Qualifiers: Hypertension type: unspecified Qualified Code(s): I10 - Essential (primary) hypertension Code(s): I10 - Essential (primary) hypertension Status: Acute Assessment and Plan: Patient's blood pressure was reviewed on 11/01 Blood pressure remains well controlled. Will continue to monitor Plan Eosinophilia - Noted just this admission. No GI symptoms. Related to prostate CA? Check PSA. Subjective Date/time seen: 11/01/22 14:23 Interval history: 72yo male with mechanical aortic valve, HTN and recent (August) pericardectomy here for hematuria. Slept well. No hx of seasonal allergies. Colonoscopy clear in 2020 but does have hx of prostate CA. No fever, night sweats or chills. Exam Narrative: AF 98.1 110/69 68 16 99% ra Gen - NARD Chest - CTA bilaterally, nml RR CV - RRR with mechanical S2 Abd - Soft, NT/ND, Positive BS - Lara secured draining clear yellow urine Ext - No pedal edema Neuro - Alert and oriented. Nonfocal exam. Psych - Nml mood and affect Skin - chronic venous stasis skin changes bilateral LE Objective Data Vital Signs Vital Signs: Vital Signs - 24 hr 10/31/22 21:25 10/31/22 20:00 10/31/22 23:40 Temperature 97.8 F Pulse Rate 71 Respiratory Rate 18 Blood Pressure 132/76 Pulse Oximetry 100 99 Oxygen Delivery Room Air Room Air 11/01/22 05:23 11/01/22 09:10 11/01/22 08:00 Temperature 98.1 F Pulse Rate 68 68 Respiratory Rate 16 Blood Pressure 110/69 Pulse Oximetry 99 Oxygen Delivery Room Air Intake/Output Intake/Output: Intake & Output 10/29/22 10/30/22 10/31/22 11/01/22 23:59 23:59 23:59 23:59 Intake Total 2600 1640 2450 810 Output Total 2600 3000 4100 1600 Balance 0 -1360 -1650 -790 Meds/Results Medications: Active Medications Generic Name Dose Route Start Last Admin Trade Name Freq PRN Reason Stop Dose Admin Acetaminophen 650 mg 10/24/22 16:35 Acetaminophen 325 Mg Tablet PO Q4H PRN Mild Pain (1-3) or Fever Acetaminophen/Aspirin/Caffeine 1 tablet 10/24/22 22:40 10/28/22 20:32 Acetaminophen/Aspirin/Caffeine 250-250-65 Mg Tablet PO 1 tablet Q6H PRN Administration Pain Rated 1-3 Aspirin 81 mg 10/31/22 21:00 10/31/22 21:10 Aspirin 81 Mg Enteric Tablet PO 81 mg HS MIKAYLA Administration Atorvastatin Calcium 80 mg 10/25/22 0
--- NOTE | 2022-11-01 14:23 | PCNFU ---
Nutrition Follow-Up Complete: HPI: Patient is in good spirits this morning. He is ready to go home; however, INR needs to be in a therapeutic range before this can happen. INR <2. requesting that Ensure be discontinued as patient is eating well and they feel the vitamin K in the Ensure may be causing issues with his INR. She states the Ensure is the only change they can think of that would be impacting his INR. Patient has consumed 100% x 3 meals over the past 2 days. Last recorded weight is 75.5 kg. No new weights since admission. Bowel Motility: abd soft. BM: 10/31/22. Labs Reviewed: (11/01/22): Hgb 10.9, Hct 33.6, Na 132, BUN 38, glucose 166 Meds Noted: vitamin B12, vitamin D, Lasix, iron, Foltx Skin: bilateral LE- venous stasis; no breakdown noted Edema: none noted per EHR Pt current nutrition is heart-healthy diet, Ensure compact BID. Unintentional weight loss prior to admission related to reduced appetite and intake as evidenced by pt report. (Continue, recommend to have a weight checked) Goal: PO intake to remain 75% or greater for meals (Met, continue) Nutrition Recommendation: 1. Continue with a heart-healthy diet. 2. Discontinue Ensure. 3. Please check a weight. Monitor intake, weight, labs. Follow up in 7 days.
[2022-11-01 17:09] LABS: Glucose Point of Care 197 mg/dl (65-105)
[2022-11-01] MEDS: WARFARIN (*PBKC) 4 MG TABLET PO ×2 (17:14→17:15)
[2022-11-01 20:30] VITALS: BP 117/59; PULSE 68; RESP 16; TEMP 36.4; O2SAT 100
[2022-11-01 21:02] LABS: Glucose Point of Care 140 mg/dl (65-105)
[2022-11-01] MEDS: traZODone HCL 50 MG TABLET PO (21:34)
[2022-11-01] MEDS: ASPIRIN 81 MG ENTERIC TABLET PO (21:34)
[2022-11-01] MEDS: FERROUS SULFATE 325 MG TABLET DR PO (21:34)
[2022-11-01] MEDS: TAMSULOSIN HCL 0.4 MG CAPSULE PO (21:34)
[2022-11-02 04:43] VITALS: BP 140/95; PULSE 66; RESP 16; TEMP 36.2; O2SAT 100
[2022-11-02 06:29] LABS: INR 1.4; Prothrombin Time 18.1 Seconds (11.1-14.7)
[2022-11-02 06:55] LABS: Prostate Specific Antigen 6.3 ng/mL (< OR = 4.0)
[2022-11-02 08:01] LABS: Glucose Point of Care 151 mg/dl (65-105)
[2022-11-02] MEDS: FUROSEMIDE 20 MG TABLET PO (08:16)
[2022-11-02] MEDS: FINASTERIDE 5 MG TABLET PO (08:16)
[2022-11-02] MEDS: CHOLECALCIFEROL 1,000 UNITS TABLET 2000 UNITS PO (08:17)
[2022-11-02] MEDS: ATORVASTATIN 40 MG TABLET 80 MG PO (08:17)
[2022-11-02] MEDS: CYANOCOBALAMIN 1,000 MCG TABLET 1000 MCG PO (08:17)
[2022-11-02] MEDS: METOPROLOL SUCCINATE EXT REL 50 MG TABCR PO (08:17)
[2022-11-02] MEDS: PANTOPRAZOLE 40 MG TABLET PO (08:17)
[2022-11-02] MEDS: CEFDINIR 300 MG CAPSULE PO ×2 (08:17→20:22)
[2022-11-02 10:00] LABS: Partial Thromboplastin Time 63.2 SECONDS (22.3-36.8)
[2022-11-02] MEDS: HEPARIN SOD/D5W 100 UNITS/ML 25,000 UNITS/250 ML BAG 13 UNITS IV CONT (10:48)
[2022-11-02] MEDS: HEPARIN SODIUM 5,000 UNITS/ML VIAL 3000 UNITS IV PUSH (10:49)
[2022-11-02 11:48] LABS: Glucose Point of Care 117 mg/dl (65-105)
--- NOTE | 2022-11-02 13:01 | PM.IMPN ---
Progress Note: A&P Assessment and Plan (1) Hematuria: Qualifiers: Hematuria type: gross Qualified Code(s): R31.0 - Gross hematuria Code(s): R31.9 - Hematuria, unspecified Status: Acute Assessment and Plan: Patient presented with hematuria. Lara catheter was placed for urine retention. Urinalysis was consistent with UTI. Neurology was consulted. CBI started. Urine cleared. Source of hematuria probably from UTI. Urine culture growing Proteus that was pansensitive. CBI weaned off. Continue Omnicef to complete a course of antibiotics. (2) Retention of urine: Code(s): R33.9 - Retention of urine, unspecified Status: Acute Assessment and Plan: Patient noted to have urine retention. Urology was consulted. Flomax was continued. Finasteride was started. Myrbetriq stopped. Lara catheter trial was unsuccessful. Plan for home with Lara catheter. (3) History of mechanical aortic valve replacement: Code(s): Z95.2 - Presence of prosthetic heart valve Status: Acute Assessment and Plan: Patient has mechanical aortic valve. He was placed on a heparin drip and his Coumadin stopped. Hematuria has resolved. Coumadin has been resumed. Continue heparin drip until INR is therapeutic. He was taking supplements that may be blunting the Coumadin response. Extra Coumadin again today. (4) UTI (urinary tract infection): Code(s): N39.0 - Urinary tract infection, site not specified Status: Acute Assessment and Plan: UA noted. Urine culture growing Proteus that is pansensitive. Continue antibiotics. (5) Hypertension: Qualifiers: Hypertension type: unspecified Qualified Code(s): I10 - Essential (primary) hypertension Code(s): I10 - Essential (primary) hypertension Status: Acute Assessment and Plan: Patient's blood pressure was reviewed on 11/02 Blood pressure remains well controlled. Will continue to monitor Plan Eosinophilia - Noted just this admission. No GI symptoms. PSA elevated but trending down (family provide list of past PSA values). Related to heparin? Follow Subjective Date/time seen: 11/02/22 13:01 Interval history: 72yo male with mechanical aortic valve, HTN and recent (August) pericardectomy here for hematuria. No problems overnight. No CP or SOB. +BMs. No blood. Exam Narrative: AF 97.2 140/95 66 16 100% ra Gen - NARD Chest - CTA bilaterally, nml RR CV - RRR with mechanical S2 Abd - Soft, NT/ND, Positive BS - Lara secured draining clear yellow urine Ext - No pedal edema Psych - Nml mood and affect Skin - chronic venous stasis skin changes bilateral LE Objective Data Vital Signs Vital Signs: Vital Signs - 24 hr 11/01/22 14:00 11/01/22 20:30 11/01/22 20:00 Temperature 99.4 F 97.5 F L Pulse Rate 80 68 Respiratory Rate 16 16 Blood Pressure 130/71 117/59 L Pulse Oximetry 99 100 Oxygen Delivery Room Air 11/02/22 04:43 11/02/22 08:00 Temperature 97.2 F L Pulse Rate 66 Respiratory Rate 16 Blood Pressure 140/95 H Pulse Oximetry 100 Oxygen Delivery Room Air Intake/Output Intake/Output: Intake & Output 10/30/22 10/31/22 11/01/22 11/02/22 23:59 23:59 23:59 23:59 Intake Total 1640 2450 2890 370 Output Total 3000 4100 3050 1200 Balance -1360 -1650 -160 -830 Meds/Results Medications: Active Medications Generic Name Dose Route Start Last Admin Trade Name Freq PRN Reason Stop Dose Admin Acetaminophen 650 mg 10/24/22 16:35 Acetaminophen 325 Mg Tablet PO Q4H PRN Mild Pain (1-3) or Fever Acetaminophen/Aspirin/Caffeine 1 tablet 10/24/22 22:40 10/28/22 20:32 Acetaminophen/Aspirin/Caffeine 250-250-65 Mg Tablet PO 1 tablet Q6H PRN Administration Pain Rated 1-3 Aspirin 81 mg 10/31/22 21:00 11/01/22 21:34 Aspirin 81 Mg Enteric Tablet PO 81 mg HS MIKAYLA Administration Atorvastatin C
[2022-11-02] MEDS: WARFARIN (*PBKC) 4 MG TABLET PO ×2 (13:42→17:19)
[2022-11-02 14:00] VITALS: BP 149/62; PULSE 78; RESP 20; TEMP 36.6; O2SAT 100
[2022-11-02 17:03] LABS: Glucose Point of Care 145 mg/dl (65-105)
[2022-11-02 17:06] LABS: Partial Thromboplastin Time 138.4 SECONDS (22.3-36.8)
[2022-11-02] MEDS: TAMSULOSIN HCL 0.4 MG CAPSULE PO (20:22)
[2022-11-02] MEDS: ASPIRIN 81 MG ENTERIC TABLET PO (20:23)
[2022-11-02 20:30] LABS: Glucose Point of Care 174 mg/dl (65-105)
[2022-11-02] MEDS: traZODone HCL 50 MG TABLET PO ×2 (20:59→21:02)
[2022-11-02 22:00] VITALS: BP 108/57; PULSE 78; RESP 14; TEMP 36.3; O2SAT 99
[2022-11-03 00:39] LABS: Partial Thromboplastin Time 105.3 SECONDS (22.3-36.8)
[2022-11-03 05:39] VITALS: BP 138/70; PULSE 59; RESP 16; TEMP 36.3; O2SAT 100
[2022-11-03 06:37] LABS: Hemoglobin 11.2 g/dL (14.0-18.0); Mean Corpuscular HGB Conc 32.9 g/dl (32-36); Mean Corpuscular Hemoglobin 30.6 pg (26-34); Mean Corpuscular Volume 92.9 fl (80-100); Platelet Count Result 226 k/mm3 (150-375); Red Blood Count 3.66 M/mm3 (4.6-6.20); White Blood Count 8.1 K/mm3 (4.5-10.0)
[2022-11-03 06:38] LABS: Basophils Absolute Auto 0.2 K/mm3 (0.0-0.1); Basophils Percent Auto 2.8 % (0.2-1.2); Eosinophils Absolute Auto 1.1 K/mm3 (0-0.3); Immature Granulocyte Absolute 0.06 K/mm3 (0.00-0.031); Immature Granulocyte Percent A 0.7 % (0-0.5); Lymphocytes Absolute Auto 0.83 K/mm3 (0.9-3.2); Lymphocytes Percent Auto 10.2 % (18.3-44.2); Mean Platelet Volume 9.2 fl (7.4-10.4); Monocytes Absolute Auto 1.1 K/mm3 (0.1-0.6); Monocytes Percent Auto 13.4 % (2.6-8.5); Neutrophils Absolute Auto 4.8 K/mm3 (1.3-6.7); Neutrophils Percent Auto 58.9 % (45.5-73.1)
[2022-11-03 06:43] LABS: INR 1.8; Prothrombin Time 22.1 Seconds (11.1-14.7)
[2022-11-03 06:47] LABS: Partial Thromboplastin Time 117.3 SECONDS (22.3-36.8)
[2022-11-03 06:52] LABS: Anion Gap 4 mmol/L (8-16); Blood Urea Nitrogen 31 mg/dL (9-20); Calcium 8.9 mg/dL (8.4-10.2); Carbon Dioxide 29 mmol/L (22-30); Chloride 100 mmol/L (98-107); Estimated CRCL calculation 59 ml/min; Estimated Glomerular Filt Rate > 60; Glucose 120 mg/dL (65-110); Potassium 4.2 mmol/L (3.4-5.0); Sodium 133 mmol/L (137-145)
[2022-11-03] MEDS: CHOLECALCIFEROL 1,000 UNITS TABLET 2000 UNITS PO (08:14)
[2022-11-03] MEDS: CEFDINIR 300 MG CAPSULE PO (08:14)
[2022-11-03] MEDS: FUROSEMIDE 20 MG TABLET PO (08:14)
[2022-11-03] MEDS: PANTOPRAZOLE 40 MG TABLET PO (08:14)
[2022-11-03] MEDS: METOPROLOL SUCCINATE EXT REL 50 MG TABCR PO (08:14)
[2022-11-03] MEDS: CYANOCOBALAMIN 1,000 MCG TABLET 1000 MCG PO (08:14)
[2022-11-03] MEDS: ATORVASTATIN 40 MG TABLET 80 MG PO (08:14)
[2022-11-03] MEDS: FINASTERIDE 5 MG TABLET PO (08:14)
[2022-11-03 08:21] LABS: Glucose Point of Care 107 mg/dl (65-105)
[2022-11-03] MEDS: HEPARIN SOD/D5W 100 UNITS/ML 25,000 UNITS/250 ML BAG 9 UNITS IV CONT (09:58)
[2022-11-03 11:20] LABS: Glucose Point of Care 111 mg/dl (65-105)
--- NOTE | 2022-11-03 13:06 | PM.IMPN ---
Progress Note: A&P Assessment and Plan (1) Hematuria: Qualifiers: Hematuria type: gross Qualified Code(s): R31.0 - Gross hematuria Code(s): R31.9 - Hematuria, unspecified Status: Acute Assessment and Plan: Patient presented with hematuria. Lara catheter was placed for urine retention. Urinalysis was consistent with UTI. Urology was consulted. CBI started. Urine cleared. CT the abdomen pelvis showed right midpole calyx filling defect with moderate left and mild right hydronephrosis. Also had marked urinary bladder wall thickening. A mass lesion cannot be excluded. Source of hematuria probably from UTI vs malignancy. Urine culture growing Proteus that was pansensitive. CBI weaned off. Continue Omnicef to complete a course of antibiotics. (2) Retention of urine: Code(s): R33.9 - Retention of urine, unspecified Status: Acute Assessment and Plan: Patient noted to have urine retention. Urology was consulted. Flomax was continued. Finasteride was started. Myrbetriq stopped. Lara catheter trial was unsuccessful. Plan for home with Lara catheter. 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 Follow with urology after discharge (3) History of mechanical aortic valve replacement: Code(s): Z95.2 - Presence of prosthetic heart valve Status: Acute Assessment and Plan: Patient has mechanical aortic valve. He was placed on a heparin drip and his Coumadin stopped. Hematuria has resolved. Coumadin has been resumed. Continue heparin drip until INR is therapeutic. He was taking supplements that may be blunting the Coumadin response. Supplements stopped since he is eeating well. Extra Coumadin again today. (4) UTI (urinary tract infection): Code(s): N39.0 - Urinary tract infection, site not specified Status: Acute Assessment and Plan: UA noted. Urine culture growing Proteus that is pansensitive. Continue antibiotics. (5) Hypertension: Qualifiers: Hypertension type: unspecified Qualified Code(s): I10 - Essential (primary) hypertension Code(s): I10 - Essential (primary) hypertension Status: Acute Assessment and Plan: Patient's blood pressure was reviewed on 11/03 Blood pressure remains well controlled. 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 Patient underwent pericardiectomy in August for subacute constrictive pericarditis. CT on admission here showed marked interlobular septal thickening in the right lower lobe and right middle lobe as well as right pleural thickening and small right pleural effusion. Probably residual from his recent surgery and pericarditis. Continue to monitor. Plan Eosinophilia - Noted just this admission. No GI symptoms. PSA elevated but trending down (family provide list of past PSA values). Related to heparin? Follow Subjective Date/time seen: 11/03/22 13:06 Interval history: 72yo male with mechanical aortic valve, HTN and recent (August) pericardectomy here for hematuria. No problems overnight. No complaints. No evidence of acute blood loss. Exam Narrative: AF 97.4 138/70 59 16 100% ra Gen - NARD Chest - decreased BS in the right base o/w clear. CV - RRR with mechanical S2 Abd - Soft, NT/ND, Positive BS - Lara secured draining clear yellow urine Ext - No pedal edema Psych - Nml mood and affect Skin - chronic venous stasis skin changes bilateral LE Objective Data Vital Signs Vital Signs: Vital Signs - 24 hr 11/02/22 14:00 11/02/22 20:00 11/02/22 22:00 Temperature 97.8 F 97.4 F L Pulse Rate 78 78 Respiratory Rate 20 14
[2022-11-03 14:00] VITALS: BP 128/61; PULSE 65; RESP 22; TEMP 36.8; O2SAT 100
[2022-11-03 14:07] LABS: Partial Thromboplastin Time 45.5 SECONDS (22.3-36.8)
[2022-11-03] MEDS: HEPARIN SODIUM 5,000 UNITS/ML VIAL 4000 UNITS IV PUSH (14:13)
[2022-11-03] MEDS: WARFARIN (*PBKC) 4 MG TABLET PO (16:38)
[2022-11-03] MEDS: WARFARIN (*PBKC) 2 MG TABLET PO (16:38)
[2022-11-03 16:53] LABS: Glucose Point of Care 131 mg/dl (65-105)
[2022-11-03 17:07] LABS: Glucose Point of Care 124 mg/dl (65-105)
[2022-11-03 20:35] LABS: Partial Thromboplastin Time 146.1 SECONDS (22.3-36.8)
[2022-11-03] MEDS: TAMSULOSIN HCL 0.4 MG CAPSULE PO (21:05)
[2022-11-03] MEDS: ASPIRIN 81 MG ENTERIC TABLET PO (21:05)
[2022-11-03] MEDS: FERROUS SULFATE 325 MG TABLET DR PO (21:05)
[2022-11-03] MEDS: traZODone HCL 50 MG TABLET PO (21:19)
[2022-11-03 21:37] VITALS: BP 124/73; PULSE 70; RESP 14; TEMP 36.2; O2SAT 100
[2022-11-04 03:05] LABS: Basophils Absolute Auto 0.2 K/mm3 (0.0-0.1); Eosinophils Absolute Auto 1.3 K/mm3 (0-0.3); Eosinophils Percent Auto 15.9 % (0-4.4); Hematocrit 33.6 % (42.0-52.0); Immature Granulocyte Absolute 0.04 K/mm3 (0.00-0.031); Immature Granulocyte Percent A 0.5 % (0-0.5); Lymphocytes Absolute Auto 0.84 K/mm3 (0.9-3.2); Lymphocytes Percent Auto 10.7 % (18.3-44.2); Mean Corpuscular HGB Conc 32.7 g/dl (32-36); Mean Corpuscular Hemoglobin 30.6 pg (26-34); Mean Corpuscular Volume 93.6 fl (80-100); Mean Platelet Volume 9.2 fl (7.4-10.4); Monocytes Absolute Auto 1.1 K/mm3 (0.1-0.6); Monocytes Percent Auto 13.3 % (2.6-8.5); Neutrophils Absolute Auto 4.5 K/mm3 (1.3-6.7); Neutrophils Percent Auto 56.6 % (45.5-73.1); Platelet Count Result 212 k/mm3 (150-375); Red Blood Count 3.59 M/mm3 (4.6-6.20); Red Cell Distribution Width 17.2 % (11.5-14.5); White Blood Count 7.9 K/mm3 (4.5-10.0)
[2022-11-04 03:38] LABS: Prothrombin Time 23.6 Seconds (11.1-14.7)
[2022-11-04 03:39] LABS: Partial Thromboplastin Time 91.4 SECONDS (22.3-36.8)
[2022-11-04 06:00] VITALS: BP 117/64; PULSE 65; RESP 12; TEMP 36.2; O2SAT 100
[2022-11-04 07:29] LABS: Glucose Point of Care 107 mg/dl (65-105)
[2022-11-04] MEDS: METOPROLOL SUCCINATE EXT REL 50 MG TABCR PO (08:26)
[2022-11-04] MEDS: PANTOPRAZOLE 40 MG TABLET PO (08:26)
[2022-11-04] MEDS: CYANOCOBALAMIN 1,000 MCG TABLET 1000 MCG PO (08:26)
[2022-11-04] MEDS: FUROSEMIDE 20 MG TABLET PO (08:26)
[2022-11-04] MEDS: ATORVASTATIN 40 MG TABLET 80 MG PO (08:26)
[2022-11-04] MEDS: CHOLECALCIFEROL 1,000 UNITS TABLET 2000 UNITS PO (08:26)
[2022-11-04] MEDS: FINASTERIDE 5 MG TABLET PO (08:26)
[2022-11-04 09:43] LABS: Partial Thromboplastin Time 69.1 SECONDS (22.3-36.8)
[2022-11-04 11:16] LABS: Glucose Point of Care 148 mg/dl (65-105)
--- NOTE | 2022-11-04 12:50 | PM.DS ---
DS: Admitting Diagnosis Discharge Date 11/04/22 Admitting Diagnosis Hematuria DS: Discharge Diagnosis Discharge Diagnosis (1) Hematuria: Qualifiers: Hematuria type: gross Qualified Code(s): R31.0 - Gross hematuria Code(s): R31.9 - Hematuria, unspecified Status: Acute (2) Retention of urine: Code(s): R33.9 - Retention of urine, unspecified Status: Acute (3) History of mechanical aortic valve replacement: Code(s): Z95.2 - Presence of prosthetic heart valve Status: Acute (4) UTI (urinary tract infection): Code(s): N39.0 - Urinary tract infection, site not specified Status: Acute (5) Hypertension: Qualifiers: Hypertension type: unspecified Qualified Code(s): I10 - Essential (primary) hypertension Code(s): I10 - Essential (primary) hypertension Status: Acute (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 Please see H&P for details. Hospital Course: Patient presented with hematuria.? Lara catheter was placed for urine retention.? Urinalysis was consistent with UTI.? Urology was consulted.? CBI started.? Urine cleared.? CT the abdomen pelvis showed right midpole calyx filling defect with moderate left and mild right hydronephrosis.? Also had marked urinary bladder wall thickening.? A mass lesion cannot be excluded.? Source of hematuria probably from UTI vs malignancy.? Urine culture growing Proteus that was pansensitive.? CBI weaned off. Patient noted to have urine retention.?Flomax was continued.? Finasteride was started.? Myrbetriq stopped.? Lara catheter trial was unsuccessful.? Plan for home with Lara catheter. He does have biopsy proven prostate adenoCA in 2020. Plan to follow with urology after discharge. Patient has mechanical aortic valve.? He was placed on a heparin drip and his Coumadin stopped.? Hematuria resolved.? Coumadin was resumed. INR became therapeutic. He was taking supplements that may have blunted the Coumadin response. he states his INR is stable on his home Coumadin regiment so this was continued. CT chest in July showing excessive pericardial calcifications with moderate to large right pleural effusion partial right middle lobe and right lower lobe atelectatic changes.? Patient underwent pericardiectomy in August for subacute constrictive pericarditis.? CT on admission here showed marked interlobular septal thickening in the right lower lobe and right middle lobe as well as right pleural thickening and small right pleural effusion.? Probably residual from his recent surgery and pericarditis.? Patient also noted to have Eosinophilia new this admission. No GI symptoms. PSA elevated but trending down (family provide list of past PSA values). Related to heparin? Has allergy to PCN so consider related to Omnicef? Asymptomatic from this. Completed a course of antibiotics x 10 days. Discussed with urology about need for 14 days (vs 10 days) and they felt 10 days sufficient given the quick improvement (only required 2 days of IV abx), that fluoroquinolones affect the INR and possibly having eosinophilia with the cephalosporin. Plan for repeat CBC as outpatient. Home with Lara; leg bag provided. Patient overall did well and was able to be discharged home on 11/04/22. Status at Discharge Cognitive/behavioral status at discharge: stable Time Spent with Patient Time attestation: Total time spent providing and/or coordinating discharge services:35 minutes Time spent: Greater than 30 minutes Exam Narrative: AF 97.1 117/64 65 12 100% ra Gen - NARD Chest - decreased BS in the right base o/w clear. CV - RRR with occasi
== END 2022-11-04 13:32 | disposition home or self-care (01) | DRG 690 ==
LOC: ANHED 15:52 → ANH3MEDSUR 17:50
PROVIDERS: Chiropractor; Internal Medicine; Nurse Practitioner; Nurse Practitioner Adult Health; Admitting Provider Hospitalist; Emergency Provider Emergency Medicine; PCP Internal Medicine; Visit Provider Internal Medicine
DX: N39.0 Urinary tract infection, site not specified (principal); I31.1 Chronic constrictive pericarditis; B96.4 Proteus (mirabilis) (morganii) as the cause of diseases classified elsewhere; R31.0 Gross hematuria; N13.30 Unspecified hydronephrosis; N40.0 Benign prostatic hyperplasia without lower urinary tract symptoms; R33.9 Retention of urine, unspecified; N32.81 Overactive bladder; I10 Essential (primary) hypertension; I48.91 Unspecified atrial fibrillation; E11.9 Type 2 diabetes mellitus without complications; D50.9 Iron deficiency anemia, unspecified; E78.2 Mixed hyperlipidemia; Z79.82 Long term (current) use of aspirin; Z79.01 Long term (current) use of anticoagulants; Z95.2 Presence of prosthetic heart valve; Z85.46 Personal history of malignant neoplasm of prostate
CPT/HCPCS: 36415; 74018; 74178; 76775; 80048; 80053; 80076; 81001; 82948; 84134; 84153; 85025; 85610; 85730; 87077; 87086; 87088; 87186; 96365; 96368; 99285; A9270; J0696; J1644; J3430; J7030; J7168; Q9967

== ENCOUNTER 2022-11-08 09:45 | Outpatient (CLI) | payer MEDICARE, SELFPAY ==
[2022-11-08 10:33] LABS: Basophils Absolute Auto 0.1 K/mm3 (0.0-0.1); Basophils Percent Auto 2.5 % (0.2-1.2); Eosinophils Absolute Auto 0.4 K/mm3 (0-0.3); Hemoglobin 12.3 g/dL (14.0-18.0); Immature Granulocyte Absolute 0.02 K/mm3 (0.00-0.031); Immature Granulocyte Percent A 0.4 % (0-0.5); Lymphocytes Absolute Auto 0.59 K/mm3 (0.9-3.2); Lymphocytes Percent Auto 11.5 % (18.3-44.2); Mean Corpuscular HGB Conc 32.4 g/dl (32-36); Mean Corpuscular Hemoglobin 30.2 pg (26-34); Mean Corpuscular Volume 93.4 fl (80-100); Mean Platelet Volume 9.7 fl (7.4-10.4); Monocytes Absolute Auto 0.8 K/mm3 (0.1-0.6); Monocytes Percent Auto 14.8 % (2.6-8.5); Neutrophils Absolute Auto 3.3 K/mm3 (1.3-6.7); Neutrophils Percent Auto 63.8 % (45.5-73.1); Platelet Count Result 217 k/mm3 (150-375); Red Blood Count 4.07 M/mm3 (4.6-6.20); Red Cell Distribution Width 17.1 % (11.5-14.5); White Blood Count 5.2 K/mm3 (4.5-10.0)
[2022-11-08 10:42] LABS: INR 1.5; Prothrombin Time 18.6 Seconds (11.1-14.7)
[2022-11-08 10:43] LABS: Alanine Aminotransferase 28 U/L (6-50); Albumin Level 4.1 g/dL (3.5-5.1); Alkaline Phosphatase 247 U/L (38-126); Anion Gap 10 mmol/L (8-16); Aspartate Amino Transferase 33 U/L (17-59); Bilirubin,Total 0.9 mg/dL (0.2-1.3); Blood Urea Nitrogen 31 mg/dL (9-20); Calcium 9.4 mg/dL (8.4-10.2); Carbon Dioxide 24 mmol/L (22-30); Chloride 99 mmol/L (98-107); Cholesterol 160 mg/dL (0-200); Estimated Glomerular Filt Rate > 60; Glucose 108 mg/dL (65-110); HDL Direct 50 mg/dL; Potassium 4.3 mmol/L (3.4-5.0); Sodium 133 mmol/L (137-145); Triglycerides 105 mg/dL (<150)
[2022-11-08 10:54] LABS: Hemoglobin A1C 5.3 % (<5.7); LDL Cholesterol Direct 75 mg/dL
[2022-11-08 12:29] LABS: Appearance Urine Clear (Clear); Bacteria Urine 1+ /hpf; Bilirubin Urine Negative (Negative); Blood Urine Negative (Negative); Color Urine Yellow (Yellow); Glucose Urine UA Negative (Negative); Ketones Urine Negative (Negative); Leukocyte Esterase Ur 2+ LEU/UL (Negative); Nitrate Urine Negative (Negative); Non Pathogenic Casts 0-2; Protein Urine Negative (Negative); RBC Urine 0-2 /hpf (0-2); Specific Grav Ur 1.008 (1.001-1.035); Squamous Epithelial Cell Urine None seen /hpf (Few); Urobilinogen Urine 0.2 mg/dL (<2.0); pH Urine 5.5 (5.0-9.0)
[2022-11-08 12:32] LABS: Add Urine Microscopic? YES
[2022-11-15 04:10] LABS: Alkaline Phosphatase 206 U/L (35-144); Macrohepatic Isoenzymes 0 % (<=0)
== END 2022-11-08 09:46 | disposition home or self-care (01) ==
LOC: ANHLAB 09:47
PROVIDERS: Internal Medicine; PCP Internal Medicine; Visit Provider Internal Medicine
DX: Z13.29 Encounter for screening for other suspected endocrine disorder (principal); R74.8 Abnormal levels of other serum enzymes; D72.10 Eosinophilia, unspecified; I10 Essential (primary) hypertension; E11.9 Type 2 diabetes mellitus without complications; E78.2 Mixed hyperlipidemia; Z95.2 Presence of prosthetic heart valve; Z79.899 Other long term (current) drug therapy
CPT/HCPCS: 36415; 80053; 80061; 81001; 83036; 84075; 84080; 84439; 84443; 85025; 85610; 87077; 87086; 87147; 87181; 87186

== ENCOUNTER 2022-12-12 12:33 | Outpatient (CLI) | payer MEDICARE, SELFPAY ==
--- NOTE | ~2022-12-12 | NM_ITS ---
EXAMINATION: BESS romero renal scan DATE: 12/12/2022 13:44 INDICATION: Bilateral hydronephrosis TECHNIQUE: 8.0 mCi Tc-99m MAG3 was administered IV. 40 mg furosemide was administered IV immediately afterward. A posterior abdominal radionuclide angiogram was obtained. A subsequent time course of st atic images of the kidneys, ureters, and bladder was obtained. COMPARISON: CT dated 10/24/2022 and ultrasound dated 10/25/2022 FINDINGS: The posterior abdominal radionuclide angiogram and sequential static images show normal size, positio n, and morphology of the kidneys. Peak renal parenchymal uptake was >29 min in left kidney and 17 min in right kidney (normal peak 3-5 minutes). The relative early renal uptake was 25% on the left and 75% on the right (<40% is abnormal). There appears to be at least mild hydronephrosis at the right ki dney. No evident dilated collecting system at the left kidney. No abnormalities of the ureters or kathryn dder are seen. T1/2 for clearance of activity from the left kidney and proximal collecting system was indeterminate with continually rising activity curve over the 30 minutes of observation. T1/2 for clearance of activity from the right kidney and proximal collecting system was indeterminate with essentially plateau of the renal curve in the final 15 minutes of imaging. Notes on interpretation: T1/2 <10 minutes is normal, 10-15 minutes is low grade obstruction of questi onable clinical significance, 15-20 minutes is partial obstruction that is likely clinically signific ant, >20 minutes is high grade obstruction. Note that false positives may be seen with supine positio ronal, dehydration, severely dilated nonobstructed kidney, atonic collecting system, poor renal functi on, and chronic furosemide use. IMPRESSION: 1. Significantly decreased left renal function which contributes only 25% of total renal function wi th corresponding asymmetric cortical thinning seen on prior CT. 2. Markedly delayed contrast clearance at both kidneys with some corresponding dilation to the right renal collecting system but no evident hydronephrosis at the left kidney. The degree of activity del ay would be consistent with a high-grade obstruction however this appears disproportionate to the deg ree of hydronephrosis as evident on the current and prior imaging and the delay may be exaggerated by poor renal function particularly in the more atrophic left kidney and/or atonic collecting system or dehydration. Reviewed, dictated and finalized at location A. IMPRESSION: 1. Significantly decreased left renal function which contributes only 25% of t otal renal function with corresponding asymmetric cortical thinning seen on jennifer or CT. 2. Markedly delayed contrast clearance at both kidneys with some corresponding dilation to the right renal collecting system but no evident hydronephrosis at the left kidney. The degree of activity delay would be consistent with a high- grade obstruction however this appears disproportionate to the degree of hydron ephrosis as evident on the current and prior imaging and the delay may be exagg erated by poor renal function particularly in the more atrophic left kidney and /or atonic collecting system or dehydration.
== END 2022-12-12 12:34 | disposition home or self-care (01) ==
PROVIDERS: PCP Internal Medicine; Visit Provider Nurse Practitioner Adult Health
DX: N13.30 Unspecified hydronephrosis (principal)
CPT/HCPCS: 78708; A9562

== ENCOUNTER 2022-12-19 09:49 | Outpatient (CLI) | payer MEDICARE, SELFPAY ==
[2022-12-19 11:06] LABS: Anion Gap 8 mmol/L (8-16); Blood Urea Nitrogen 30 mg/dL (9-20); Calcium 9.2 mg/dL (8.4-10.2); Carbon Dioxide 26 mmol/L (22-30); Chloride 103 mmol/L (98-107); Estimated Glomerular Filt Rate 54; Glucose 102 mg/dL (65-110); Sodium 137 mmol/L (137-145)
== END 2022-12-19 09:50 | disposition home or self-care (01) ==
PROVIDERS: PCP Internal Medicine; Visit Provider Urology
DX: N40.1 Benign prostatic hyperplasia with lower urinary tract symptoms (principal)
CPT/HCPCS: 36415; 80048

== ENCOUNTER 2022-12-27 01:01 | Day surgery (SDC) | payer MEDICARE, SELFPAY ==
[2022-12-20 15:56] VITALS: BMI 26.0
--- NOTE | 2022-12-20 16:13 | PC.NURSE ---
Report to the Outpatient Waiting Room, entrance under the green pavilion located off [address], at time _1145_ on date _[id number]_. Planned Procedure Time: _145pm_. Time changes happen often and if your time is changed the preop area will call you the afternoon before. - You and your visitor will be asked to self-screen and do not enter if you have any COVID symptoms. - A mask is optional within the hospital at this time. Patients may have clear liquids (water, carbonated beverages, clear teas, apple juice) until 3 hours prior to surgery with a maximum of 20 ounces. - No food from midnight until time of surgery Take the following medications with a SIP of water the morning of surgery: ____Metoprolol DO NOT STOP ANY OF YOUR OTHER PRESCRIPTION MEDICATIONS PRIOR TO SURGERY ?EXCEPT THE FOLLOWING Medications to discontinue per physician ____Patient is awaiting word from Dr Olivares's office who is check with Dr Stahl about holding Warfarin._ Please no make-up, nail slovenian, hairspray, perfume, deodorant, or body powder the day of surgery. No jewelry (including any body piercings) or valuables the day of surgery, leave them at home. Please take a shower or bath the night before, or the morning of, surgery with an antibacterial soap. Wear comfortable, loose fitting clothing. - Jewelry must be removed prior to entering the operating room. Rings and piercings that are not removed may be cut off. - The hospital will not accept responsibility for valuables. - Please leave all valuables, including medications, at home the day of surgery. If you are going home after surgery, a licensed hole digger truck driver must drive you home. - NO public transportation without another adult if you receive anesthesia. - We recommend that an adult stay with you for 24 hours following discharge. - We also recommend that you do not drive, make important decision, drink alcoholic beverages, or take any drugs that were not prescribed by your health care provider for at least 24 hours after your discharge time. Follow any additional instructions given to you from your surgeon. If you or anyone in your household have experienced Covid symptoms in the past week, please notify your surgeon or the nurse liaison at the phone number below for possible testing. Telephone instructions given to __Patient and his Cherrie___and asked if any additional questions and then verbalized understanding. Patient advised to call surgeon office or pre surgery nurse liaison [phone] if any additional questions.
--- NOTE | 2022-12-21 07:22 | PM.HPGS ---
History of Present Illness History of Present Illness Consent: Risks, benefits, and alternatives have been discussed and questions answered. Patient agrees to proceed with procedure. Chief complaint: Kehinde Hydronephrosis, Gross Hematuria Narrative: Delroy Chou is a 72 year old male Who is known to have a very low risk prostate cancer that is being managed with active surveillance. More recently he has developed hematuria followed by urinary retention. During course of evaluation he has been found to have bilateral hydronephrosis that persists despite catheter drainage of his bladder. A renal scan is indeterminate showing possible medical renal disease versus obstruction. His serum creatinine is minimally elevated at 1.04. For further evaluation of the hydronephrosis we have decided to proceed with cystoscopy with bilateral retrograde pyelography bilateral ureteroscopy with possible stent placement. He is aware the risk including, but not limited to, hematuria and need for additional procedures Review of Systems Review of Systems: All systems reviewed & are unremarkable except as noted in HPI and below PMFSH Past Medical History Medical History (Updated 11/09/22 @ 12:12 by Karine Moran, [facility]) A-fib Abnormal CXR Acute allergic conjunctivitis of left eye Blepharitis of left eye BMI 24.0-24.9, adult BMI 26.0-26.9,adult BMI 29.0-29.9,adult BMI 30.0-30.9,adult BMI 31.0-31.9,adult BMI 32.0-32.9,adult BMI 34.0-34.9,adult BMI 35.0-35.9,adult BMI 36.0-36.9,adult BMI 37.0-37.9, adult Borderline abnormal TFTs BPH (benign prostatic hyperplasia) Chronic hoarseness Color vision deficiency Cough Cough variant asthma DM w/o complication type II Dry cough Dysphagia Elevated alkaline phosphatase level Elevated serum creatinine Encounter for Medicare annual wellness exam Encounter for routine adult health examination with abnormal findings Encounter for routine adult health examination without abnormal findings Fatigue Follow up Foot pain, left Hospital discharge follow-up Hypervolemia Impacted cerumen of right ear Impaired functional mobility, balance, gait, and endurance Iron deficiency anemia Mixed hyperlipidemia Nocturia Nummular eczema Overactive bladder Pain and swelling of left lower extremity Pericarditis Plantar fasciitis Skin lesion SOB (shortness of breath) Unintentional weight loss URI (upper respiratory infection) UTI (urinary tract infection) Vitamin B12 deficiency Vitamin D deficiency Surgical History Surgical History Aortic valve replaced History of tonsillectomy Family History Family History Mother Hypertension Sibling Hypertension Social History Social History Smoking status: Never smoker Second hand tobacco smoke exposure: Yes (Mother smoked ) Alcohol intake: current Drinks per week: 7 Substance use: never Substance use type: does not use Lack of Transportation: No Lack of Food: Never True Current Housing: I Have Housing Concerned About Future Housing: No Difficulty Paying Gas/Electric Bills: No Difficulty Paying for Meds: No Currently Unemployed: No Education: Bachelor's Degree Difficulty w/ Childcare or Family Care: No Living arrangements: with family Additional living arrangements comments: Occupation/Education: retired Gender identity (if verbalized by the patient): Male Sexual Orientation (if Verbalized by the Patient): Straight or Heterosexual Spiritual care concerns: No Agree to blood products: Yes Meds Home Medications and Allergies Home Medications Medication Instructions Recorded Confirmed Type warfarin 4 mg tablet See Rx Instructions .Route .COMPLEX 05/05/19 12/20/22 History aspirin 81 mg tablet,delayed 81 mg PO HS 08/17/19 12/20/22 History release (A
[2022-12-27] VITALS (8 sets, daily range): BP systolic 101–164; BP diastolic 53–85; PULSE 59–79; RESP 14–22; TEMP 36.6–36.7; O2SAT 94–100
--- NOTE | ~2022-12-27 | XR_ITS ---
EXAMINATION: XR retrograde pyelogram BI DATE: 12/27/2022 16:54 CDT INDICATION: Hydronephrosis. TECHNIQUE: Fluoroscopic images from bilateral retrograde pyelogram are submitted for review. 33 secon ds of fluoroscopy. 116 fluoroscopic images. FINDINGS: There is bilateral hydronephrosis. There is a persistent filling defect distal aspect of th e right ureter, suspicious for stone. The left ureter is not completely visualized proximally. IMPRESSION: 1. Bilateral hydronephrosis.. Correlate with real time procedural findings for details. 2: Possible distal right ureteral stone. Limited visualization of the left ureter proximally. Reviewed, dictated and finalized at location A. IMPRESSION: 1. Bilateral hydronephrosis.. Correlate with real time procedural findings for details. 2: Possible distal right ureteral stone. Limited visualization of the left ure ter proximally.
--- NOTE | 2022-12-27 06:28 | WPDHPUPDATE1 ---
History and Physical Update Update Date/Time: 12/27/22 06:28 History and Physical has been reviewed, including an updated exam of the patient. There are NO changes in the patient's condition. Risks, benefits, and alternatives have been discussed and questions answered. Patient agrees to proceed with procedure.
[2022-12-27 11:57] LABS: Glucose Point of Care 103 mg/dl (65-105)
--- NOTE | 2022-12-27 12:02 | WPDANESEPPF ---
Anes - Initial Pre Proc Eval Procedure: Operation Date: 12/27/22 13:15 Proposed Procedures p Cystoscopy, Bilateral Retrograde Pyelogram, Possible Ureteroscopy, Possible Bilateral Stent Placement - Oswaldo Olivares MD Date/Time: 12/27/22 12:02 Surgeon: Oswaldo Olivares MD Pre Op Diagnosis: Kehinde Hydronephrosis, Gross Hematuria Patient Data Age: 72 Gender: M Height: 1.78 m Weight: 82.3 kg Allergies Allergy/AdvReac Type Severity Reaction Status Date / Time Penicillins Allergy Intermediate Rash Verified 12/27/22 11:59 Home Medications Medication Instructions Recorded Confirmed Type warfarin 4 mg tablet See Rx Instructions .Route .COMPLEX 05/05/19 12/20/22 History aspirin 81 mg tablet,delayed 81 mg PO HS 08/17/19 12/20/22 History release (Adult Low Dose Aspirin) cholecalciferol (vitamin D3) 50 50 mcg PO DAILY 06/23/20 12/20/22 History mcg (2,000 unit) capsule cyanocobalamin (vitamin B-12) 1,000 mcg PO QAM 07/27/22 12/20/22 History 1,000 mcg capsule acetaminophen 325 mg tablet 650 mg PO Q6H PRN Pain 09/10/22 12/20/22 History metoprolol succinate 50 mg 50 mg PO DAILY 10/23/22 12/20/22 History tablet,extended release 24 hr atorvastatin 80 mg tablet 80 mg PO DAILY 10/24/22 12/20/22 History folic acid-vit B6-vit B12 2.2 1 tablet PO HS 10/24/22 12/20/22 History mg-25 mg-0.5 mg tablet (Folplex) metformin 500 mg tablet 500 mg PO BIDWMEAL 10/24/22 12/20/22 History pantoprazole 40 mg tablet,delayed 40 mg PO DAILY 10/24/22 12/20/22 History release tamsulosin 0.4 mg capsule 0.4 mg PO HS 10/24/22 12/20/22 History finasteride 5 mg tablet (Proscar) 5 mg PO QAM #30 tabs 11/04/22 12/20/22 Rx ferrous sulfate 325 mg (65 mg See Rx Instructions .Route 12/11/22 12/20/22 Rx iron) tablet .COMPLEX #90 tabs furosemide 20 mg tablet 20 mg PO DAILY 12/20/22 12/20/22 History lisinopril 20 mg tablet 20 mg PO DAILY 12/21/22 12/27/22 History lisinopril 20 mg tablet 20 mg PO DAILY 12/24/22 12/24/22 History Laboratory Tests 12/27/22 12/27/22 11:54 11:55 PT Pending INR Pending APTT Pending POC Capillary Glucose 103 mg/dl (65-105) Patient hx anesthesia problems: none Family hx anesthesia problems: none Results Review: All pre-operative results and documents have been reviewed as part of the pre-operative evaluation. [facility] Past Medical History Medical History A-fib Abnormal CXR Acute allergic conjunctivitis of left eye Blepharitis of left eye BMI 24.0-24.9, adult BMI 26.0-26.9,adult BMI 29.0-29.9,adult BMI 30.0-30.9,adult BMI 31.0-31.9,adult BMI 32.0-32.9,adult BMI 34.0-34.9,adult BMI 35.0-35.9,adult BMI 36.0-36.9,adult BMI 37.0-37.9, adult Borderline abnormal TFTs BPH (benign prostatic hyperplasia) Chronic hoarseness Color vision deficiency Cough Cough variant asthma DM w/o complication type II Dry cough Dysphagia Elevated alkaline phosphatase level Elevated serum creatinine Encounter for Medicare annual wellness exam Encounter for routine adult health examination with abnormal findings Encounter for routine adult health examination without abnormal findings Fatigue Follow up Foot pain, left Hospital discharge follow-up Hypervolemia Impacted cerumen of right ear Impaired functional mobility, balance, gait, and endurance Iron deficiency anemia Mixed hyperlipidemia Nocturia Nummular eczema Overactive bladder Pain and swelling of left lower extremity Pericarditis Plantar fasciitis Skin lesion SOB (shortness of breath) Unintentional weight loss URI (upper respiratory infection) UTI (urinary tract infection) Vitamin B12 deficiency Vitamin D deficiency Surgical History Surgical History (Updated 12/27/22 @ 12:03 by Ankit Kebede MD) Aortic valve replaced H/O pericardiectomy 09/07 [place] History of tonsillectomy Family History Family History (Reviewed 12/27/22 @ 12:03 by Ankit Musa
[2022-12-27 12:09] LABS: INR 1.3; Prothrombin Time 17.3 Seconds (11.1-14.7)
[2022-12-27 12:10] LABS: Partial Thromboplastin Time 31.9 SECONDS (22.3-36.8)
[2022-12-27] MEDS: LACTATED RINGERS 1,000 ML 30 ML IV CONT (12:56)
--- NOTE | 2022-12-27 12:59 | W.PM.PROC2 ---
Procedure Note - Detailed Date of Procedure 12/27/22 Pre-op Diagnosis Kehinde Hydronephrosis, Gross Hematuria Post-op Diagnosis Same Procedure Performed Cystoscopy, bilateral retrograde pyelography Surgeon Oswaldo Olivares MD Anesthesia General Findings Very minimal bilateral ureteral obstruction due to bladder wall thickening Description of Procedure patient is brought to the operative suite was prepped draped in routine sterile fashion while in dorsal lithotomy position after the uneventful induction of a general LMA anesthetic. Cystoscopy is undertaken with a 21 F rigid cystoscope. He has no urethral stricture. . His prostate is minimally enlarged with just very early obstruction from lateral lobe hyperplasia. The bladder was very trabeculated with cellule and diverticular formation consistent with his overactive bladder. There were no intravesical foreign body or neoplasm. With retrograde pyelography I can see some narrowing of the ureters as they traversed a thickened bladder wall. The more proximal ureters are dilated without filling defects. This is consistent with bilateral urea obstruction due to bladder wall thickening. With completion of retrograde pyelography there is very vigorous and prompt efflux of the contrast material. in light of these findings and the patient's normal serum creatinine opted not to place ureteral stents. Scopes wires removed in the was taken recovery room good condition. Drains No Packing No Pathology None sent Complications No immediate complications Condition Stable Disposition PACU
[2022-12-27 13:38] LABS: Glucose Point of Care 88 mg/dl (65-105)
== END 2022-12-27 14:50 | disposition home or self-care (01) ==
PROVIDERS: PCP Internal Medicine; Visit Provider Urology
PROC: (CPT 52352; principal; 2022-12-27 13:15)
DX: N13.30 Unspecified hydronephrosis (principal); R31.0 Gross hematuria; R33.8 Other retention of urine; C61 Malignant neoplasm of prostate; N32.81 Overactive bladder; E78.2 Mixed hyperlipidemia; E11.9 Type 2 diabetes mellitus without complications; E55.9 Vitamin D deficiency, unspecified; E53.8 Deficiency of other specified B group vitamins; D50.9 Iron deficiency anemia, unspecified; Z95.4 Presence of other heart-valve replacement; Z79.01 Long term (current) use of anticoagulants; Z79.82 Long term (current) use of aspirin
CPT/HCPCS: 52005; 36415; 74420; 82948; 85610; 85730; C1758; C1769; J2405; J2704; J3010; J7120; Q9966

== ENCOUNTER 2023-01-29 08:49 | Outpatient (CLI) | payer MEDICARE, SELFPAY ==
--- NOTE | ~2023-01-29 | US_ITS ---
Limited Abdominal Sonogram: Real-time sonographic imaging of the right upper quadrant was performed. Clinical History: Abnormal findings of blood chemistry Findings: The liver appears nodular in contour, without mass lesion or bile duct dilatation. Main po rtal vein demonstrates normal direction of flow. The gallbladder is partial distended, with mild diff use wall thickening, but no evident gallstone. The common bile duct measures 7 mm. The pancreas is l argely obscured by bowel gas shadowing. Small amount of ascites noted in the right upper quadrant. Impression: Suggestion of nodular contour of liver. Correlate for early cirrhotic change. Gallbladder wall thickening is probably related to the presence of ascites. No gallstone evident. Reviewed, dictated and finalized at location M. ANICS SUPERVISOR Impression: Suggestion of nodular contour of liver. Correlate for early cirrhotic change. Gallbladder wall thickening is probably related to the presence of ascites. No gallstone evident.
== END 2023-01-29 08:50 | disposition home or self-care (01) ==
PROVIDERS: PCP Internal Medicine; Visit Provider Internal Medicine
DX: R79.89 Other specified abnormal findings of blood chemistry (principal)
CPT/HCPCS: 76705

== ENCOUNTER 2023-02-14 07:47 | Outpatient (CLI) | payer MEDICARE, SELFPAY ==
--- NOTE | ~2023-02-14 | NM_ITS ---
EXAMINATION: NM hepatobiliary wo pharm DATE: 02/14/2023 11:07 INDICATION: Abnormal findings on diagnostic imaging. COMPARISON: CT abdomen and pelvis 10/24/2022, abdomen ultrasound 01/29/2023 TECHNIQUE: 4.9 mCi Tc-99m mebrofenin (Choletec) was administered intravenously. Scintigraphic images of the abdomen were obtained for one hour. Then, the patient drank 8 oz Ensure, and imaging was cont inued for 60 minutes. FINDINGS: There is normal clearance of radiotracer from the blood pool. There is homogeneous tracer u ptake by the liver. Activity progresses to the bowel and gallbladder. Gallbladder ejection fraction (GBEF) was 75%. Note that with this technique, normal GBEF >= 33%. IMPRESSION: 1. Normal hepatobiliary scintigraphy. Reviewed, dictated and finalized at location A. ING CONSULTANT
== END 2023-02-14 07:48 | disposition home or self-care (01) ==
PROVIDERS: PCP Internal Medicine; Visit Provider Internal Medicine
DX: R93.2 Abnormal findings on diagnostic imaging of liver and biliary tract (principal)
CPT/HCPCS: 78226; A9537

== ENCOUNTER 2023-09-24 08:39 | Outpatient (CLI) | payer MEDICARE, SELFPAY ==
--- NOTE | ~2023-09-24 | US_ITS ---
Limited Abdominal Sonogram: Real-time sonographic imaging of the right upper quadrant was performed. Clinical History: Abnormal serum enzyme levels Findings: The liver appears mildly heterogeneous, without biliary dilatation. 1.2 cm hepatic cyst pr esent no definite discrete solid mass identified. Main portal vein demonstrates normal direction of f low. The gallbladder is well distended, and demonstrates mild wall thickening of the 4 mm. There is a 1.0 x 0.7 cm gallbladder wall polyp. The common bile duct measures 8 mm. The visualized pancreas, a tone, and IVC are unremarkable. Impression: 1.0 x 0.7 cm gallbladder wall polyp with mild background diffuse wall thickening. Heterogeneous hepatic echotexture could reflect fatty infiltration or other chronic liver disease. Co rrelate clinically. Reviewed, dictated and finalized at [facility]. Impression: 1.0 x 0.7 cm gallbladder wall polyp with mild background diffuse wall thickenin g. Heterogeneous hepatic echotexture could reflect fatty infiltration or other chr onic liver disease. Correlate clinically.
== END 2023-09-24 08:40 | disposition home or self-care (01) ==
LOC: ANHIMG 08:41
PROVIDERS: PCP Internal Medicine; Visit Provider Internal Medicine
DX: R74.8 Abnormal levels of other serum enzymes (principal); K82.4 Cholesterolosis of gallbladder
CPT/HCPCS: 76705

== ENCOUNTER 2023-10-02 12:04 | Outpatient (CLI) | payer MEDICARE, SELFPAY ==
[2023-10-02 12:45] LABS: Hematocrit 43.6 % (42.0-52.0); Hemoglobin 14.7 g/dL (14.0-18.0); Mean Corpuscular HGB Conc 33.7 g/dl (32-36); Mean Corpuscular Hemoglobin 33.2 pg (26-34); Mean Corpuscular Volume 98.4 fl (80-100); Mean Platelet Volume 10.1 fl (7.4-10.4); Platelet Count Result 157 k/mm3 (150-375); Red Blood Count 4.43 M/mm3 (4.6-6.20); Red Cell Distribution Width 13.9 % (11.5-14.5); White Blood Count 6.4 K/mm3 (4.5-10.0)
[2023-10-02 13:00] LABS: Alanine Aminotransferase 26 U/L (6-50); Albumin Level 4.6 g/dL (3.5-5.1); Alkaline Phosphatase 293 U/L (38-126); Anion Gap 11 mmol/L (4-12); Aspartate Amino Transferase 36 U/L (17-59); Bilirubin Indirect 1.4 mg/dL (0-1.1); Bilirubin,Total 2.1 mg/dL (0.2-1.3); Blood Urea Nitrogen 27 mg/dL (9-20); Calcium 9.6 mg/dL (8.4-10.2); Carbon Dioxide 25 mmol/L (22-30); Chloride 100 mmol/L (98-107); Estimated Glomerular Filt Rate 59; Glucose 137 mg/dL (65-110); Sodium 136 mmol/L (137-145)
[2023-10-02 13:51] LABS: Iron 99 ug/dL (49-181)
[2023-10-02 14:05] LABS: Percent Iron Saturation 30 % (20-50)
[2023-10-03 15:59] LABS: Alpha-1-Antitrypsin, QN 181 mg/dL (83-199); Ceruloplasmin 37 mg/dL (14-30)
[2023-10-04 14:54] LABS: Alpha Fetoprotein Tumor Marker 2.7 ng/mL (<6.1)
[2023-10-07 02:09] LABS: LKM 1 Antibody <=20.0 U (<=20.0)
[2023-10-09 16:03] LABS: ALT 19 U/L (9-46); Alpha-2-Macroglobulin 285 mg/dL (106-279); Apolipoprotein A1 170 mg/dL (94-176); Fibrosis Score 0.98; Fibrosis Stage F4; GGT 491 U/L (3-70); Haptoglobin <8 mg/dL (43-212); Necroinflammat Act Grade A0-A1; Reference ID 5023223; Total Bilirubin 1.9 mg/dL (0.2-1.2)
[2023-10-14 01:54] LABS: Actin Antibody (IgG) <20 U (<20)
== END 2023-10-02 12:05 | disposition home or self-care (01) ==
LOC: ANHLAB 12:12
PROVIDERS: PCP Internal Medicine; Visit Provider Nurse Practitioner Family
DX: R74.8 Abnormal levels of other serum enzymes (principal); R79.89 Other specified abnormal findings of blood chemistry; D50.9 Iron deficiency anemia, unspecified; R06.02 Shortness of breath; E78.2 Mixed hyperlipidemia
CPT/HCPCS: 36415; 80053; 81596; 82103; 82105; 82248; 82390; 82728; 83540; 83550; 85027; 86038; 86039; 86364; 86376

== ENCOUNTER 2023-10-10 07:44 | Outpatient (CLI) | payer MEDICARE, SELFPAY ==
--- NOTE | ~2023-10-10 | MR_ITS ---
EXAMINATION: MR MRCP wo/w con/w 3D wo ind DATE: 10/10/2023 08:55 INDICATION: Abnormal levels of other serum enzymes TECHNIQUE: Magnetic resonance imaging (MRI) of the abdomen was performed without and with 17 mL Multi juan intravenous contrast. Sequences included coronal T2-weighted SS-FSE, coronal T2-weighted FS SS- FSE, coronal T2-weighted FS FIESTA, axial T2-weighted FS FIESTA, axial T2-weighted FIESTA, sagittal T 2-weighted SS-FSE, axial T1-weighted dual-echo FSPGR, axial T2-weighted SS-FSE, axial T1-weighted LAV A, axial T2-weighted STIR FSE. Thick-slab T2-weighted FRFSE-XL images were obtained for magnetic reso nance cholangiopancreatography (MRCP). Rotating maximum intensity projection 3-D reconstructions of t he volumetric data were created by the technologist. Postcontrast sequences included a time course of axial T1-weighted LAVA. COMPARISON: None. FINDINGS: ABDOMEN MRI: Cardiomegaly. No pericardial effusion. Small posterior layering left pleural effusion. There is conso lidation and septal line thickening in the right lower and middle lobes consistent with nonspecific l radha disease. 1.5 cm cyst in the left hepatic lobe. There is a nodular liver surface contour consisten t with cirrhosis. There are a couple small low signal intensity gallstones in the dependent aspect of the otherwise normal-appearing gallbladder. 1 cm cystic lesion at the body of the pancreas. Spleen a nd bilateral adrenal glands are normal. There is moderate bilateral hydroureteronephrosis which exten ds to the bladder without evident obstructing stones or mass. Bladder is distended with trabeculated bladder wall which suggests chronic outlet obstruction, likely accounting for the bilateral hydrouret eronephrosis. Diverticulosis with descending and sigmoid colon predominance without adjacent from tra ce stranding to suggest diverticular colitis. No dilated bowel to suggest obstruction. Small amount o f ascites scattered throughout the abdomen and pelvis along with scattered mild edema throughout the intra-abdominal fat. No pathologically enlarged abdominal lymphadenopathy. Small fat-containing umbil ical hernia. Severe thoracolumbar spondylosis. T1 hyperintense nonenhancing hemangioma at the caudal aspect of the T7 vertebral body. Marrow signal is otherwise unremarkable. ABDOMEN MRCP: No intrahepatic biliary ductal dilation. The common bile duct is dilated to 9 mm without evident dist al obstructing stone or mass. Normal caliber main pancreatic duct. IMPRESSION: 1. Cirrhosis. A couple small gallstones at the dependent aspect of the normal-appearing gallbladder w ith no evident choledocholithiasis within the mildly dilated common bile duct which measures up to 9 mm with no intrahepatic biliary ductal dilation. 2. Small left pleural effusion without evident associated lung disease. 3. Consolidation and septal line thickening in the right lower lung suspicious for pneumonia. Correla te with clinical history, chest radiograph or CT. 4. Cardiomegaly. 5. Moderate bilateral hydroureteronephrosis extending to the distended trabeculated bladder which sug gests chronic outlet obstruction 6. Small fat-containing umbilical hernia. Reviewed, dictated and finalized at location A. IMPRESSION: 1. Cirrhosis. A couple small gallstones at the dependent aspect of the normal-a ppearing gallbladder with no evident choledocholithiasis within the mildly dila miriam common bile duct which measures up to 9 mm with no intrahepatic biliary jose flako dilation. 2. Small left pleural effusion without evident associated lung disease. 3. Consolidation and septal line thickening in the right lower lung suspicious for pneumonia. Correlate with clinical history, chest radiograph or CT. 4. Cardiomegaly. 5. Moderate bilateral hydroureteronephrosi
== END 2023-10-10 07:45 | disposition home or self-care (01) ==
PROVIDERS: PCP Internal Medicine; Visit Provider Nurse Practitioner Family
DX: R74.8 Abnormal levels of other serum enzymes (principal); R79.89 Other specified abnormal findings of blood chemistry
CPT/HCPCS: 74183; 76376; A9577

== ENCOUNTER 2024-10-30 10:09 | Emergency (ER) | payer MEDICARE, SELFPAY ==
--- NOTE | ~2024-10-30 | XR_ITS ---
XR chest 2V 10/30/2024 11:18 Indication: Dyspnea Procedure: 2 view chest Comparison: Comparison to multiple prior studies sequentially, with oldest reviewed study dated 04/09. Findings: Cardiomegaly. Mild interstitial edema. Small pleural effusions. No pneumothorax. There are changes of median sternotomy. Impression: 1: Cardiomegaly with interstitial edema. 2: Small pleural effusions. Reviewed, dictated and finalized at location A. Impression: 1: Cardiomegaly with interstitial edema. 2: Small pleural effusions.
[2024-10-30 10:11] VITALS: BP 121/72; PULSE 92; RESP 18; TEMP 36.8; O2SAT 93
--- OUTSIDE RECORDS SUMMARY | 2024-10-30 10:13 | XMS_ITS | Clinical Summary ---
Author Organization [facility] [address] Address [address] [place] [address] Care Team Providers Care Salicylic Acid Blender Name Role Phone Ameya Chaudhary MD Primary Care Provider Damir Mendez MD Unavailable [phone] Unknown, Notinfile Unavailable Unavailable Allergies Active Allergy Reactions Criticality Noted Date Comments Penicillins Rash Medium Medications tamsulosin (FLOMAX) 0.4 mg capsule,extende d release 24hr take 1 capsule by oral route every day 1/2 hour following the same meal each day 0 0 6 Active atorvastatin (LIPITOR) 80 mg tablet take 1 tablet by oral route every day 0 0 6 Active metFORMIN (GLUCOPHAGE) 500 mg tablet Take 1 tablet (500 mg total) by mouth 2 (two) times a day 8 Active cyanocobalamin (Vitamin B-12) 1,000 mcg tabletIndicatio ns:Prevention of Vitamin B12 Deficiency Take 1 tablet (1,000 mcg total) by mouth daily Active pantoprazole DR (PROTONIX) 40 mg EC tablet Take 1 tablet (40 mg total) by mouth daily Active cholecalciferol (VITAMIN D-3) 2000 unit capsule Take 1 capsule (2,000 Units total) by mouth daily Active ferrous sulfate 325 mg (65 mg of elemental iron) tablet Take 1 tablet (325 mg total) by mouth daily 3 Active aspirin 81 mg chewable tablet Take 1 tablet (81 mg total) by mouth daily 30 tablet 11 3 Active acetaminophen (TYLENOL) 325 mg tablet Take 2 tablets (650 mg total) by mouth every 6 (six) hours as needed for pain 30 tablet 3 Active lisinopriL (PRINIVIL,ZESTR IL) 20 mg tablet Take 1 tablet (20 mg total) by mouth daily 3 Active finasteride (PROSCAR) 5 mg tablet Take 1 tablet (5 mg total) by mouth daily 3 Active furosemide (LASIX) 20 mg tablet Take 1 tablet (20 mg total) by mouth 2 (two) times a day Active Folplex 2.2 2.2-25-0.5 mg tablet Take 1 tablet by mouth daily 4 Active metoprolol XL (TOPROL-XL) 50 mg extended release tablet TAKE 1 TABLET BY MOUTH EVERY DAY 90 tablet 3 5 Active warfarin (COUMADIN) 4 mg tablet TAKE 1 TABLET BY MOUTH EVERY DAY 90 tablet 5 Active Active Problems Problem Noted Date Diagnosed Date Acute postoperative pain 08/28/2022 Assessment & Plan (09/01/2022 10:13 AM CDT): Expected postop pain following cardiac surgery. Endorsing adequate pain control - acetaminophen changed to prn - Oxycodone 5mg Q4H PRN Urinary retention 08/28/2022 Assessment & Plan (09/01/2022 10:13 AM CDT): Lara removed in the ICU, staight cath overnight 08/27 Lara replaced 08/28 for urinary retention Lara removed yesterday Has voided three times Diabetes mellitus 08/28/2022 Assessment & Plan (08/31/2022 1:49 PM CDT): Pt on metformin at home (500 BID) A1C 5.5 on admission Will continue the accuchecks right now Continue SSI Pseudoaneurysm following procedure 08/15/2022 Assessment & Plan (08/28/2022 10:16 AM CDT): Found R groin pseudoaneurysm following OSH LHC Injected in 5/30 Peripheral pulses palpable. 08/15 repeat us Again seen is a pseudoaneurysm arising from the rightsuperficial femoral artery, with a persistent minimal nonthrombosed portion arising from a narrow neck and a deeper large, completely thrombosed component measuring 4.8 x 4.4 x 2.2 cm. Assessment & Plan (08/16/2022 11:52 AM CDT): Found R groin pseudoaneurysm following OSH LHC Injected in US 08/14 Peripheral pulses palpable. 08/15 repeat us Again seen is a pseudoaneurysm arising from the rightsuperficial femoral artery, with a persistent minimal nonthrombosed portion arising from a narrow neck and a deeper large, completely thrombosed component measuring 4.8 x 4.4 x 2.2 cm. Hypertension 08/11/2022 Assessment & Plan (09/02/2022 10:22 AM CDT): On Hydralazine, Lisinopril and Sotalol at home Continue sotalol Wires capped Monitor VS Q4H Assessment & Plan (08/12/2022 10:32 AM CDT): On Hydralazine, Lisinopril and Sotalol at home Will hold Lisinopril for renal protection in the pre-op period Monitor VS Q4H May need further titration of antihypertensives. Encourage low sodium diet Assessment & Plan (08/11/2022 3:50 AM CDT): On Hydralazine, Lisinopril and Sotalol at home Will hold Lisinopril for renal protection in the pre-op period Monitor VS Q4H May need further titration of antihypertensives. Encourage low sodium diet Permanent atrial fibrillation 08/11/2022 Assessment & Plan (09/02/2022 10:22 AM CDT): POA Continue home dose of warfarin 4mg Hep gtt off since INR 2.3 Rate controlled per telemetry continue home Sotalol Monitor telemetry Assessment & Plan (08/19/2022 2:36 PM CDT): POA On Coumadin 4mg at home, last dose 08/09/22 Will hold Coumadin during hospitalization Heparin drip continued - old at midnight tonight for OR 1st case tomorrow Monitor telemetry Continue Sotalol for rate control. Assessment & Plan (08/11/2022 10:14 AM CDT): POA On Coumadin 4mg at home, last dose 08/09/22 Will hold Coumadin during hospitalization Will start Hep gtt once INR <2 INR 3.3 and repeat 3.5, will hold off on starting Heparin drip Monitor telemetry Continue Sotalol for rate control. History of mechanical aortic valve replacement 0 08/11/2022 Assessment & Plan (08/28/2022 10:16 AM CDT): S/P aortic valve replacement (25mm [place]) in 1999 at [facility] Anticoagulated with Coumadin at home, see above Coumadin restarted 08/24 Assessment & Plan (08/19/2022 2:37 PM CDT): S/P aortic valve replacement (25mm [place]) in 1999 at [facility] Anticoagulated with Coumadin at home, will hold INR < 2- started on heparin drip - stopping at midnight for OR 1st case tomorrow Monitor telemetry Assessment & Plan (08/11/2022 10:14 AM CDT): S/P aortic valve replacement (25mm [place]) in 1999 at [facility] Anticoagulated with Coumadin at home, will hold INR 3.5 on admission Will start Heparin gtt once INR <2 Monitor telemetry Pulmonary hypertension 08/11/2022 Assessment & Plan (09/02/2022 10:23 AM CDT): Noted per OSH echo on 07/31/22 Continue supplement O2 to keep O2 Sat >90% Changed to po lasix yesterday Weaned down to 0.5/1 L Monitor daily weights Strict I&O Assessment & Plan (08/12/2022 10:44 AM CDT): Noted per OSH echo on 07/31/22 Continue supplement O2 to keep O2 Sat >90% RHC completed at OSH on 07/30-will request imaging Continue diuresis Monitor daily weights Strict I&O Consider pulmonary hypertension consult Assessment & Plan (08/11/2022 4:33 AM CDT): Noted per OSH echo on 07/31/22 Continue supplement O2 to keep O2 Sat >90% RHC completed at OSH on 07/30-will request imaging Lasix 40mg IV BID Monitor daily weights Strict I&O Consider pulmonary hypertension consult 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 08/20/2022: Pericardiectomy TTE 08/23 with improved biventricular function from prior severe diastolic dysfunction with low normal RV and moderate RV dillation. 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 Negative for DVT Continue IVAB Assessment & Plan (08/16/2022 11:54 AM CDT): Right leg pain and redness, warm to touch Will obtain venous dopplers to rule out DVT On ancef started 08/12, consider stopping since right leg improved RLE venous duplex completed. Negative for DVT Continue IVAB Recurrent right pleural effusion 08/11/2022 08/28/2022 Assessment & Plan (08/28/2022 10:15 AM CDT): 07/31: right thoracentesis at OSH-removed 1.1L Start Lasix 40mg IV BID with K supplement Monitor daily weights Strict I&O Assessment & Plan (08/16/2022 11:46 AM CDT): 08/10 2V CXR: Interval decrease in size of the now moderate right pleural effusion following reported thoracentesis. No left pleural effusion. 07/31: right thoracentesis at OSH-removed 1.1L Start Lasix 40mg IV BID with K supplement Monitor daily weights Strict I&O Assessment & Plan (08/11/2022 10:14 AM CDT): 08/10 2V CXR: Interval decrease in size of the now moderate right pleural effusion following reported thoracentesis. No left pleural effusion. 07/31: right thoracentesis at OSH-removed 1.1L Start Lasix 40mg IV BID with K supplement Monitor daily weights Strict I&O Consulted IR for right thoracentesis- can't do til INR is under 2.5 Subacute constrictive pericarditis 08/10/2022 08/28/2022 Assessment & Plan (08/28/2022 10:14 AM CDT): 07/31/22 TTE at OSH: Mild regurg of bioprosthetic aortic valve, mild TVR, severe pulmonary hypertension (estimated PA systolic pressure 73mmHg), EF 60-65% 07/30: LHC and RHC at OSH-will request imaging from [facility] Monitor telemetry ECHO done 08/11 showed EF 42% no effusion, severe pulm HTN and mild MR and TR Plan for OR tomorrow Assessment & Plan (08/19/2022 2:37 PM CDT): 07/31/22 TTE at OSH: Mild regurg of bioprosthetic aortic valve, mild TVR, severe pulmonary hypertension (estimated PA systolic pressure 73mmHg), EF 60-65% 07/30: LHC and RHC at OSH-will request imaging from [facility] Monitor telemetry ECHO done 08/11 showed EF 42% no effusion, severe pulm HTN and mild MR and TR Plan for OR tomorrow Assessment & Plan (08/11/2022 10:13 AM CDT): 07/31/22 TTE at OSH: Mild regurg of bioprosthetic aortic valve, mild TVR, severe pulmonary hypertension (estimated PA systolic pressure 73mmHg), EF 60-65% 07/30: C and RHC at OSH-will request imaging. Monitor telemetry ECHO today-no report yet Possible EDITH pending echo results. History of mechanical aortic valve replacement 06/12/2017 08/28/2022 Aortic valve disorders [I35.9] 09/19/2016 08/28/2022 Atrial fibrillation (CMS/HCC) [I48.91] 09/19/2016 08/28/2022 Encounters Date Type Department Care Team Description 10/28/2024 Anticoagulation Visit [facility] Cardiology [address] [place] [address] [place] [phone] Rossi Small RN senior care (current) use of anticoagulants [Z79.01] (Primary Dx) 10/14/2024 Anticoagulation Visit [facility] Cardiology [address] [place] [address] [place] [phone] Rossi Small RN terminal superintendent (current) use of anticoagulants [Z79.01] (Primary Dx) 09/30/2024 Orders Only [facility] Health Information Management [address] [place] [id number] Scanning, Provider 09/30/2024 Anticoagulation Visit [facility] Cardiology [address] [place] [address] [place] [phone] Rossi Small RN senior care (current) use of anticoagulants [Z79.01] (Primary Dx) 09/17/2024 Anticoagulation Visit [facility] Cardiology [address] [place] [address] [place] [phone] Rossi Small RN terminal superintendent (current) use of anticoagulants [Z79.01] (Primary Dx) 09/02/2024 Anticoagulation Visit [facility] Cardiology [address] [place] [address] [address] [place] [phone] Rossi Small RN terminal superintendent (current) use of anticoagulants [Z79.01] (Primary Dx) 08/19/2024 Orders Only [facility] Health Information Management [address] [place] [address] Scanning, Provider 08/19/2024 Anticoagulation Visit [facility] Cardiology [address] [place] [address] Elio Mejia RN senior care (current) use of anticoagulants [Z79.01] (Primary Dx) 08/11/2024 Results Follow-Up [facility] [address] [facility] [address] [place] [address] [place] [phone] Joanna Amos MD [id number], Tumor Marker, Comprehensive metabolic panel 08/05/2024 Orders Only [facility] Health Information Management [address] [place] [phone] Scanning, Provider 08/05/2024 Anticoagulation Visit [facility] Cardiology [address] [place] [address] Elio Mejia RN senior care (current) use of anticoagulants [Z79.01] (Primary Dx) from Last 3 Months Immunizations Immunization Administration Dates Next Due Flucelvax Influenza Quad MDI 12/24/2013 Influenza, Quad, Adjuvantated, Intramuscular Influenza, Quadrivalent, Hig h Dose, Preservative Free, Intrr 11/29/2020 Influenza, Trivalent, High D ose, Split, Preservative Free, Intramuscular 02/03/2015 ZOSTER LIVE 10/15/2014 Surgical History Surgery Date Site/Laterality Comments AORTIC VALVE REPLACEMENT US GUIDED THORACENTESIS 08/14/2022 N/A Medical History Medical History Date Comments Hypertension Hypertension Adiposity Obesity Atrial fibrillation (HCC) Recurrent right pleural effusion 08/11/2022 Cellulitis and abscess of leg, except foot 2022 Family History Medical History Relation Name Comments No Known Problems Father No Known Problems Mother Relation Name Status Comments Father Mother Social History Tobacco Use Types Packs/Day Years Used Date Smoking Tobacco: Never Smokeless Tobacco: Never Tobacco Cessation:Counseling Given: Not Answered Alcohol Use Standard Drinks/Week Comments Yes 0 (1 standard drink = 0.6 oz pur e alcohol) AUDIT-C Answer Date Recorded Q1: How often do you have a drink containing alc ohol? 2-3 times a week 12/10/2023 Average Number of Drinks Not on file 024 Frequency of Binge Drinking Not on file 11/17 Personal Safety Answer Date Recorded Have you ever been in or are you currently in a harmful physical or emotional relationship or is someone making you feel afraid or unsafe? Unable to Answer 08/20/2022 Sex and Gender Information Value Date Recorded Sex Assigned at Not on file Legal Sex Male 5:57 PM [employer] Gender Identity Male 12/31/2022 9:14 AM CDT Sexual Orientation Straight 12/31/2022 9: 14 AM CDT Obstetrics History Last Filed Vital Signs Vital Sign Reading Time Taken Comments Blood Pressure 171/77 06/29/2024 11:06 AM CDT Pulse 90 06/29/2024 11:06 AM CDT Temperature 36.8 C (98.2 F) 06/29/2024 11:06 AM CDT Respiratory Rate 16 09/03/2022 3:08 PM CDT Oxygen Saturation 90% 06/23/2024 11:01 AM CDT Inhaled Oxygen Concentration - - Weight 91.6 kg (202 lb) 06/29/2024 11:06 AM CDT Height 172.7 cm (5' 8) 06/29/2024 11:06 AM CDT Body Mass Index 30.71 06/29/2024 11:06 AM CDT Plan of Treatment Health Maintenance Due Date Last Done Comments Albumin Creatinine Ratio, Urine 1948 Depression Screening 1950 Hepatitis C Screening 1950 Dilated Eye Exam 1948 Foot Exam 1948 DTaP/Tdap/Td Vaccine (1 - Tdap) 1959 Hepatitis B Screening 1966 Pneumococcal vaccine 65+ (1 of 2 - PCV) 1967 Well Visit 65+ 2013 Zoster Vaccine (2 of 3) 12/10/2014 10/15/2014 Hemoglobin A1C 02/10/2023 08/10/2022 Fall Risk Assessment 09/04/2023 09/03/2022 Influenza Vaccine (#1) 2024 , 01/02/2020, 02/03/2015, Additional history exists Lipid Panel 12/18/2024 12/19/2023, 07/17, 06/15/2022, Additional history exists eGFR 08/06/2025 08/06/2024, 11/17, 09/02/2022, Additional history exists Medical Devices Implanted Type Area Balcony Worker Device Identifier Shelf Expiration Date Model / Serial / Lot [employer] Sternalock 360 Sternal Closure 74-0004 - [id number] Implanted:Qty: 1 on 08/20/2022 by Cherry Macias MD at [facility] N/A: Chest [employer] [id number] 07/11/2027 74-0004 / / [id number] [employer] Sternalock Vineet 2.4mm 16mm Self Drill Lock Sternum Cancellous 73-2416 - [id number] Implanted:Qty: 8 on 08/20/2022 by Cherry Macias MD at [facility] N/A: Chest [employer] 73-2416 / / [employer] Sternalock Vineet 2.4mm 18mm Self Drill Lock Sternum Cancellous 73-2418 - [id number] Implanted:Qty: 2 on 08/20/2022 by Damir Mendez MD at [facility] N/A: Chest [employer] 73-2418 / / [employer] Sternalock Vineet 2.4mm 20mm Self Drill Lock Sternum Cancellous 73-2420 - [id number] Implanted:Qty: 6 on 08/20/2022 by Damir Mendez MD at [facility] N/A: Chest [employer] 73-2420 / / Explanted Type Area Balcony Worker Device Identifier Shelf Expiration Date Model / Serial / Lot [employer] Endo Surgery Ligaclip Extra 3.2mm Ligate Open Medium Clip Internal Titanium Latex Free Lt200 - [id number] Explanted:Qty: 3 on 08/20/2022 at [facility] N/A: Chest [employer] Endo Surgery [id number] / / Procedures Procedure Name Priority Date/Time Associated Diagnosis Comments PROTIME-INR Routine 10/28/2024 PROTIME-INR Routine 10/16/2024 9:28 PM CDT SCAN - LABS 09/30/2024 PROTIME-INR Routine 09/30/2024 PROTIME-INR Routine 09/17/2024 PROTIME-INR Routine 09/03/2024 9:28 PM CDT SCAN - LABS 08/19/2024 PROTIME-INR Routine 08/19/2024 COMPREHENSIVE METABOLIC PANEL Routine 08/06/2024 8:40 AM CDT Hepatic cirrhosis, unspecified hepatic cirrhosis type, unspecified whether ascites present (HCC) [id number], TUMOR MARKER Routine 08/06/2024 8:40 AM CDT Hepatic cirrhosis, unspecified hepatic cirrhosis type, unspecified whether ascites present (HCC) SCAN - LABS 08/05/2024 PROTIME-INR Routine 08/05/2024 POCT LIPID PANEL Routine 12/19/2023 11:2 5 AM CDT Secondary hypertension HEMOGLOBIN A1C Timed 08/10/2022 9:34 PM CDT from Last 3 Months or Most Recently Relevant to Health Maintenance Results * (ABNORMAL) Protime-INR (10/28/2024) INR 5.30(A) 0.90 - 1.10 EXTERNAL LAB Blood us Historical Provider LAB BLOOD ORDERABLES Ghislaine l Result EXTERNAL LAB * (ABNORMAL) Protime-INR (10/16/2024 9:28 PM CDT) INR 3.00(A) 0.90 - 1.10 EXTERNAL LAB Blood Result [facility] Provider MD LAB BLOOD ORDERABLES Edit ed Result - Final Performing Organization Address [facility] de Phone Number EXTERNAL LAB * SCAN - LABS (09/30/2024) Provider Scanning Final Result * (ABNORMAL) Protime-INR (09/30/2024) INR 2.50(A) 0.90 - 1.10 EXTERNAL LAB Blood Result [facility] Provider MD LAB BLOOD ORDERABLES Ghislaine l Result Performing Organization Address [facility] de Phone Number EXTERNAL LAB * (ABNORMAL) Protime-INR (09/17/2024) INR 3.00(A) 0.90 - 1.10 EXTERNAL LAB Blood Result [facility] Provider MD LAB BLOOD ORDERABLES Edit ed Result - Final Performing Organization Address [facility] de Phone Number EXTERNAL LAB * (ABNORMAL) Protime-INR (09/03/2024 9:28 PM CDT) INR 2.80(A) 0.90 - 1.10 EXTERNAL LAB Blood Result [facility] Provider MD LAB BLOOD ORDERABLES Edit ed Result - Final Performing Organization Address [facility] Co de Phone Number EXTERNAL LAB * SCAN - LABS (08/19/2024) Provider Scanning Final Result * (ABNORMAL) Protime-INR (08/19/2024) [facility] INR 3.10(A) 0.90 - 1.10 EXTERNAL LAB Blood 08/19/2024 Catrachito Provider LAB BLOOD ORDERABLES Ghislaine l Result Performing Organization Address [facility] Co de Phone Number EXTERNAL LAB * [id number], Tumor Marker (08/06/2024 8:40 AM CDT) [facility] alpha Fetoprotein, tumor marker 2.8 0.0 - 8.4 ng/mL [facility] - 01 Comment: [facility] Electrochemiluminescence Immunoassay (ECLIA) Values obtained with different assay methods or kits cannot be used interchangeably. Results cannot be interpreted as absolute evidence of the presence or absence of malignant disease. This test is not interpretable in females. Blood 08/06/2024 8:40 AM CDT 08/06/2024 Narrative [facility] - 08/07/2024 11:11 AM CDT Performed at: [address] [place], [place] [id number] Leaflet Or Newspaper Deliverer: Gary Atkinson PhD, Phone: [phone] Joanna Amos MD LAB BLOOD ORDERABLES Fi nal Result Performing Organization Address [facility] Co de Phone Number [facility] - [facility] * (ABNORMAL) Comprehensive metabolic panel (08/06/2024 8:40 AM CDT) [facility] Glucose 104(H) 70 - 99 mg/dL [facility] - 01 BUN 33(H) 8 - 27 mg/dL [facility] - 01 Creatinine, Serum 1.24 0.76 - 1.27 mg/dL [facility] - 01 eGFR 60 >59 mL/min/1.7 3 [facility] - 01 BUN/creat ratio 27(H) 10 - 24 [facility] - 01 Sodium 141 134 - 144 mmol/L [facility] - 01 Potassium, sr 5.1 3.5 - 5.2 mmol/L [facility] - 01 Chloride 103 96 - 106 mmol/L [facility] - 01 CO2 24 20 - 29 mmol/L [facility] - 01 Calcium 9.6 8.6 - 10.2 mg/dL [facility] - 01 Protein, sr 6.3 6.0 - 8.5 g/dL [facility] - 01 Albumin 4.0 3.8 - 4.8 g/dL [facility] - 01 Globulin, Total 2.3 1.5 - 4.5 g/dL [facility] - 01 Bilirubin, Total 1.2 0.0 - 1.2 mg/dL [facility] - 01 Alk phos 316(H) 44 - 121 IU/L [facility] - 01 AST 37 0 - 40 IU/L [facility] - 01 ALT 27 0 - 44 IU/L [facility] - 01 Blood 08/06/2024 8:40 AM CDT 08/06/2024 Narrative [facility] - 08/07/2024 2:08 AM CDT Performed at: [address] [place] [id number] Leaflet Or Newspaper Deliverer: Gary Atkinson PhD, Phone: [phone] Joanna Amos MD LAB BLOOD ORDERABLES Fi nal Result Performing Organization Address [facility]/ZIP Co de Phone Number [facility] - 01 * SCAN - LABS (08/05/2024) Provider Scanning Final Result * (ABNORMAL) Protime-INR (08/05/2024) Pathologist [facility] INR 2.20(A) 0.90 - 1.10 EXTERNAL LAB Blood 08/05/2024 Catrachito Raymond MD LAB BLOOD ORDERABLES Ghislaine l Result EXTERNAL LAB * POCT lipid panel (12/19/2023 11:25 AM CDT) Cholesterol, POC 124 mg/dL Comment:GLU = 99 HDL, POC 73 mg/dL Triglycerides, POC <45 mg/dL LDL Cholesterol POC 42 mg/dL Chol/HDL Ratio, POC N/A Non-HDL Cholesterol, POC 51 mg/dL Cholesterol Total, POC 124 mg/dL Capillary blood 12/19/2023 1 1:25 AM CDT us Reid Bush MD POINT OF CARE TEST ORDER NELLY Final Result * Hemoglobin A1c (08/10/2022 9:34 PM CDT) Hgb A1C 5.5 4.0 - 5.6 % [facility] Estimated Average Glucose 111 mg/dL [facility] Comment: The ADA recommends reporting an estimated Average Glucose (eAG) with all Hemoglobin A1c results using the equation derived from a study of 507 normal and diabetic adults. Minority populations were underrepresented and children were not included. (Diabetes Care 2020; 43(S1): S66-S76). The eAG is not equivalent to a fasting glucose. Blood 08/10/2022 9:34 PM CDT 08/10/2022 9:57 PM CDT us Ronda Arreola NP LAB BLOOD ORDERABLES Final Result [facility] Department [place] [address] from Last 3 Months or Most Recently Relevant to Health Maintenance Insurance MEDICARE [facility] MEDICARE [employer] MEDICARE SUPPLEMENT MEDICARE [facility] MEDICARE SUPPLEMENT Advance Directives For more information, please contact: [phone] Documents on File Type Date Recorded Patient Vp Strategic Partnerships Expl anation ADVANCE DIRECTIVE 09/05/2022 7:41 PM POWER OF ARCHITECT [employer] * Full Code (Latest Code Status on File) Date Activated Date Inactivated Comments 08/10/2022 7:57 PM 09/03/2022 9:07 PM Care Teams Salicylic Acid Blender Relationship Specialty Start Date End Date Ameya Chaudhary MD [address] [place] [address] PCP - General 06/15/16 Damir Mendez MD [address] [place] [address] Surgeon Cardiothoracic Surgery 09/03/22 Unknown, Notinfile 09/03/22
--- OUTSIDE RECORDS SUMMARY | 2024-10-30 10:13 | XMS_ITS | Encounter Summary ---
Author Organization [facility] Healthcare Address [address] [place] [address] Care Team Providers Care Criminal Judge Name Role Phone Ameya Chaudhary MD Primary Care Provider [phone] Damir Mendez MD Unavailable [phone] Unknown, Notinfile Unavailable Unavailable Encounter Details Date Type Department Care Team (Late st Contact Info) Description 11/27/2023 Orders Only [facility] [place] Health Information Management [address] [place] [address] Scanning, Provider Social History Tobacco Use Types Packs/Day Years Used Date Smoking Tobacco: Never Smokeless Tobacco: Never Alcohol Use Standard Drinks/Week Comments Yes 0 (1 standard drink = 0.6 oz pur e alcohol) Personal Safety Answer Date Recorded Have you ever been in or are you currently in a harmful physical or emotional relationship or is someone making you feel afraid or unsafe? 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 Gender Identity Male 12/31/2022 9:14 AM CDT Sexual Orientation Straight 12/31/2022 9: 14 AM CDT documented as of this encounter Plan of Treatment Not on file documented as of this encounter Procedures Procedure Name Priority Date/Time Associated Diagnosis Comments SCAN - LABS 11/27/2023 documented in this encounter Results * SCAN - LABS (11/27/2023) us Provider Scanning Final Result documented in this encounter Visit Diagnoses Not on filedocumented in this encounter Care Teams Criminal Judge Relationship Specialty Start Date End Date Ameya Chaudhary MD [address] [place] [address] PCP - General 06/15/16 Damir Mendez MD [address] [place] [address] Surgeon Cardiothoracic Surgery 09/03/22 Unknown, Notinfile 09/03/22 documented as of this encounter
--- OUTSIDE RECORDS SUMMARY | 2024-10-30 10:13 | XMS_ITS | Encounter Summary ---
Author Organization [facility] Healthcare Address [address] [place] [address] Care Team Providers Care Migratory Worker Name Role Phone Ameya Chaudhary MD Primary Care Provider [phone] Damir Mendez MD Unavailable [phone] Unknown, Notinfile Unavailable Unavailable Encounter Details Date Type Department Care Team (Late st Contact Info) Description 08/30/2021 Orders Only [facility] [place] Information Management [address] [place] [address] Scanning, Provider Social History Tobacco Use Types Packs/Day Years Used Date Smoking Tobacco: Never Smokeless Tobacco: Never Alcohol Use Standard Drinks/Week Comments Yes 0 (1 standard drink = 0.6 oz pur e alcohol) Sex and Gender Information Value Date Recorded Sex Assigned at Not on file 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 Gender Identity Male 12/31/2022 9:14 AM CDT Sexual Orientation Straight 12/31/2022 9: 14 AM CDT documented as of this encounter Plan of Treatment Not on file documented as of this encounter Procedures Procedure Name Priority Date/Time Associated Diagnosis Comments SCAN - LABS 08/30/2021 documented in this encounter Results * SCAN - LABS (08/30/2021) us Provider Scanning Final Result documented in this encounter Visit Diagnoses Not on filedocumented in this encounter Additional Health Concerns Infection Onset 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
--- OUTSIDE RECORDS SUMMARY | 2024-10-30 10:13 | XMS_ITS | Encounter Summary ---
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 Gender Identity Male 12/31/2022 9:14 AM CDT Sexual Orientation Straight 12/31/2022 9: 14 AM CDT documented as of this encounter Plan of Treatment Not on file documented as of this encounter Procedures Procedure Name Priority Date/Time Associated Diagnosis Comments SCAN - LABS 05/05/2024 documented in this encounter Results * SCAN - LABS (05/05/2024) us Provider Scanning Final Result documented in this encounter Visit Diagnoses Not on filedocumented in this encounter Care Teams Senior Ui Developer Relationship Specialty Start Date End Date Ameya Chaudhary MD [address] [place] [address] PCP - General 06/15/16 Damir Mendez MD [address] [place] [address] Surgeon Cardiothoracic Surgery 09/03/22 Unknown, Notinfile 09/03/22 documented as of this encounter
--- OUTSIDE RECORDS SUMMARY | 2024-10-30 10:13 | XMS_ITS | Encounter Summary ---
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 Gender Identity Male 12/31/2022 9:14 AM CDT Sexual Orientation Straight 12/31/2022 9: 14 AM CDT documented as of this encounter Plan of Treatment Not on file documented as of this encounter Procedures Procedure Name Priority Date/Time Associated Diagnosis Comments SCAN - LABS 08/19/2024 documented in this encounter Results * SCAN - LABS (08/19/2024) us Provider Scanning Final Result documented in this encounter Visit Diagnoses Not on filedocumented in this encounter Care Teams Skiagrapher Relationship Specialty Start Date End Date Ameya Chaudhary MD [address] [place] [address] PCP - General 06/15/16 Damir Mendez MD [address] [place] [address] Surgeon Cardiothoracic Surgery 09/03/22 Unknown, Notinfile 09/03/22 documented as of this encounter
--- OUTSIDE RECORDS SUMMARY | 2024-10-30 10:13 | XMS_ITS | Encounter Summary ---
Author Organization [facility] Healthcare Address [address] [place] [address] Care Team Providers Care Tangible Personal Property Appraiser Name Role Phone Ameya Chaudhary MD Primary Care Provider [phone] Damir Mendez MD Unavailable [phone] Unknown, Notinfile Unavailable Unavailable Encounter Details Date Type Department Care Team (Late st Contact Info) Description 02/05/2024 Orders Only [facility] [place] Information Management [address] [place] [address] Scanning, Provider Social History Tobacco Use [...] on file 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 Gender Identity Male 12/31/2022 9:14 AM CDT Sexual Orientation Straight 12/31/2022 9: 14 AM CDT documented as of this encounter Plan of Treatment Not on file documented as of this encounter Procedures Procedure Name Priority Date/Time Associated Diagnosis Comments SCAN - LABS 02/05/2024 documented in this encounter Results * SCAN - LABS (02/05/2024) us Provider Scanning Final Result documented in this encounter Visit Diagnoses Not on filedocumented in this encounter Care Teams Tangible Personal Property Appraiser Relationship Specialty Start Date End Date Ameya Chaudhary MD [address] [place] [address] PCP - General 06/15/16 Damir Mendez MD [address] [place] [address] Surgeon Cardiothoracic Surgery 09/03/22 Unknown, Notinfile 09/03/22 documented as of this encounter
--- OUTSIDE RECORDS SUMMARY | 2024-10-30 10:13 | XMS_ITS | Encounter Summary ---
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 Gender Identity Male 12/31/2022 9:14 AM CDT Sexual Orientation Straight 12/31/2022 9: 14 AM CDT documented as of this encounter Plan of Treatment Not on file documented as of this encounter Procedures Procedure Name Priority Date/Time Associated Diagnosis Comments SCAN - LABS 03/17/2024 documented in this encounter Results * SCAN - LABS (03/17/2024) us Provider Scanning Final Result documented in this encounter Visit Diagnoses Not on filedocumented in this encounter Care Teams Draw Frame Operator Relationship Specialty Start Date End Date Ameya Chaudhary MD [address] [place] [address] PCP - General 06/15/16 Damir Mendez MD [address] [place] [address] Surgeon Cardiothoracic Surgery 09/03/22 Unknown, Notinfile 09/03/22 documented as of this encounter
--- OUTSIDE RECORDS SUMMARY | 2024-10-30 10:13 | XMS_ITS | Encounter Summary ---
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 Gender Identity Male 12/31/2022 9:14 AM CDT Sexual Orientation Straight 12/31/2022 9: 14 AM CDT documented as of this encounter Plan of Treatment Not on file documented as of this encounter Procedures Procedure Name Priority Date/Time Associated Diagnosis Comments SCAN - LABS 08/05/2024 documented in this encounter Results * SCAN - LABS (08/05/2024) us Provider Scanning Final Result documented in this encounter Visit Diagnoses Not on filedocumented in this encounter Care Teams Printed Circuit Boards Solder Leveler Relationship Specialty Start Date End Date Ameya Chaudhary MD [address] [place] [address] PCP - General 06/15/16 Damir Mendez MD [address] [place] [address] Surgeon Cardiothoracic Surgery 09/03/22 Unknown, Notinfile 09/03/22 documented as of this encounter
--- OUTSIDE RECORDS SUMMARY | 2024-10-30 10:13 | XMS_ITS | Encounter Summary ---
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 Gender Identity Male 12/31/2022 9:14 AM CDT Sexual Orientation Straight 12/31/2022 9: 14 AM CDT documented as of this encounter Plan of Treatment Not on file documented as of this encounter Procedures Procedure Name Priority Date/Time Associated Diagnosis Comments SCAN - LABS 03/31/2024 documented in this encounter Results * SCAN - LABS (03/31/2024) us Provider Scanning Final Result documented in this encounter Visit Diagnoses Not on filedocumented in this encounter Care Teams Door To Door Selling Agent Relationship Specialty Start Date End Date Ameya Chaudhary MD [address] [place] [address] PCP - General 06/15/16 Damir Mendez MD [address] [place] [address] Surgeon Cardiothoracic Surgery 09/03/22 Unknown, Notinfile 09/03/22 documented as of this encounter
--- OUTSIDE RECORDS SUMMARY | 2024-10-30 10:13 | XMS_ITS | Encounter Summary ---
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 Gender Identity Male 12/31/2022 9:14 AM CDT Sexual Orientation Straight 12/31/2022 9: 14 AM CDT documented as of this encounter Plan of Treatment Not on file documented as of this encounter Procedures Procedure Name Priority Date/Time Associated Diagnosis Comments SCAN - LABS 10/30/2023 documented in this encounter Results * SCAN - LABS (10/30/2023) us Provider Scanning Final Result documented in this encounter Visit Diagnoses Not on filedocumented in this encounter Care Teams Spinner Concrete Pipe Relationship Specialty Start Date End Date Ameya Chaudhary MD [address] [place] [address] PCP - General 06/15/16 Damir Mendez MD [address] [place] [address] Surgeon Cardiothoracic Surgery 09/03/22 Unknown, Notinfile 09/03/22 documented as of this encounter
--- OUTSIDE RECORDS SUMMARY | 2024-10-30 10:13 | XMS_ITS | Encounter Summary ---
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 Gender Identity Male 12/31/2022 9:14 AM CDT Sexual Orientation Straight 12/31/2022 9: 14 AM CDT documented as of this encounter Plan of Treatment Not on file documented as of this encounter Procedures Procedure Name Priority Date/Time Associated Diagnosis Comments SCAN - LABS 04/08/2024 documented in this encounter Results * SCAN - LABS (04/08/2024) us Provider Scanning Final Result documented in this encounter Visit Diagnoses Not on filedocumented in this encounter Care Teams Airworthiness Safety Inspector Relationship Specialty Start Date End Date Ameya Chaudhary MD [address] [place] [address] PCP - General 06/15/16 Damir Mendez MD [address] [place] [address] Surgeon Cardiothoracic Surgery 09/03/22 Unknown, Notinfile 09/03/22 documented as of this encounter
--- OUTSIDE RECORDS SUMMARY | 2024-10-30 10:13 | XMS_ITS | Encounter Summary ---
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 Gender Identity Male 12/31/2022 9:14 AM CDT Sexual Orientation Straight 12/31/2022 9: 14 AM CDT documented as of this encounter Plan of Treatment Not on file documented as of this encounter Procedures Procedure Name Priority Date/Time Associated Diagnosis Comments SCAN - LABS 03/04/2024 documented in this encounter Results * SCAN - LABS (03/04/2024) us Provider Scanning Final Result documented in this encounter Visit Diagnoses Not on filedocumented in this encounter Care Teams Welfare Eligibility Worker Relationship Specialty Start Date End Date Ameya Chaudhary MD [address] [place] [address] PCP - General 06/15/16 Damir Mendez MD [address] [place] [address] Surgeon Cardiothoracic Surgery 09/03/22 Unknown, Notinfile 09/03/22 documented as of this encounter
--- OUTSIDE RECORDS SUMMARY | 2024-10-30 10:13 | XMS_ITS | Encounter Summary ---
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 Gender Identity Male 12/31/2022 9:14 AM CDT Sexual Orientation Straight 12/31/2022 9: 14 AM CDT documented as of this encounter Plan of Treatment Not on file documented as of this encounter Procedures Procedure Name Priority Date/Time Associated Diagnosis Comments SCAN - LABS 11/13/2023 documented in this encounter Results * SCAN - LABS (11/13/2023) us Provider Scanning Final Result documented in this encounter Visit Diagnoses Not on filedocumented in this encounter Care Teams Trackwalker Relationship Specialty Start Date End Date Ameya Chaudhary MD [address] [place] [address] PCP - General 06/15/16 Damir Mendez MD [address] [place] [address] Surgeon Cardiothoracic Surgery 09/03/22 Unknown, Notinfile 09/03/22 documented as of this encounter
--- OUTSIDE RECORDS SUMMARY | 2024-10-30 10:13 | XMS_ITS | Encounter Summary ---
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 Gender Identity Male 12/31/2022 9:14 AM CDT Sexual Orientation Straight 12/31/2022 9: 14 AM CDT documented as of this encounter Plan of Treatment Not on file documented as of this encounter Procedures Procedure Name Priority Date/Time Associated Diagnosis Comments SCAN - LABS 02/19/2024 documented in this encounter Results * SCAN - LABS (02/19/2024) us Provider Scanning Final Result documented in this encounter Visit Diagnoses Not on filedocumented in this encounter Care Teams Epic Director Relationship Specialty Start Date End Date Ameya Chaudhary MD [address] [place] [address] PCP - General 06/15/16 Damir Mendez MD [address] [place] [address] Surgeon Cardiothoracic Surgery 09/03/22 Unknown, Notinfile 09/03/22 documented as of this encounter
--- OUTSIDE RECORDS SUMMARY | 2024-10-30 10:13 | XMS_ITS | Encounter Summary ---
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 Gender Identity Male 12/31/2022 9:14 AM CDT Sexual Orientation Straight 12/31/2022 9: 14 AM CDT documented as of this encounter Plan of Treatment Not on file documented as of this encounter Procedures Procedure Name Priority Date/Time Associated Diagnosis Comments SCAN - LABS 12/25/2023 documented in this encounter Results * SCAN - LABS (12/25/2023) us Provider Scanning Final Result documented in this encounter Visit Diagnoses Not on filedocumented in this encounter Care Teams Tarring Machine Operator Relationship Specialty Start Date End Date Ameya Chaudhary MD [address] [place] [address] PCP - General 06/15/16 Damir Mendez MD [address] [place] [address] Surgeon Cardiothoracic Surgery 09/03/22 Unknown, Notinfile 09/03/22 documented as of this encounter
--- OUTSIDE RECORDS SUMMARY | 2024-10-30 10:13 | XMS_ITS | Encounter Summary ---
Author Organization 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 Gender Identity Male 12/31/2022 9:14 AM CDT Sexual Orientation Straight 12/31/2022 9: 14 AM CDT documented as of this encounter Plan of Treatment Not on file documented as of this encounter Procedures Procedure Name Priority Date/Time Associated Diagnosis Comments SCAN - LABS 01/21/2024 documented in this encounter Results * SCAN - LABS (01/21/2024) us Provider Scanning Final Result documented in this encounter Visit Diagnoses Not on filedocumented in this encounter Care Teams Can Slider Relationship Specialty Start Date End Date Ameya Chaudhary MD [address] [place] [address] PCP - General 06/15/16 Damir Mendez MD [address] [place] [address] Surgeon Cardiothoracic Surgery 09/03/22 Unknown, Notinfile 09/03/22 documented as of this encounter
--- OUTSIDE RECORDS SUMMARY | 2024-10-30 10:13 | XMS_ITS | Encounter Summary ---
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 Gender Identity Male 12/31/2022 9:14 AM CDT Sexual Orientation Straight 12/31/2022 9: 14 AM CDT documented as of this encounter Plan of Treatment Not on file documented as of this encounter Procedures Procedure Name Priority Date/Time Associated Diagnosis Comments SCAN - LABS 06/12/2023 documented in this encounter Results * SCAN - LABS (06/12/2023) us Provider Scanning Final Result documented in this encounter Visit Diagnoses Not on filedocumented in this encounter Care Teams Clay Preparation Supervisor Relationship Specialty Start Date End Date Ameya Chaudhary MD [address] [place] [address] PCP - General 06/15/16 Damir Mendez MD [address] [place] [address] Surgeon Cardiothoracic Surgery 09/03/22 Unknown, Notinfile 09/03/22 documented as of this encounter
--- OUTSIDE RECORDS SUMMARY | 2024-10-30 10:14 | XMS_ITS | Encounter Summary ---
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 Gender Identity Male 12/31/2022 9:14 AM CDT Sexual Orientation Straight 12/31/2022 9: 14 AM CDT documented as of this encounter Plan of Treatment Not on file documented as of this encounter Procedures Procedure Name Priority Date/Time Associated Diagnosis Comments SCAN - LABS 07/23/2024 documented in this encounter Results * SCAN - LABS (07/23/2024) us Provider Scanning Final Result documented in this encounter Visit Diagnoses Not on filedocumented in this encounter Care Teams Slurry Mixer Relationship Specialty Start Date End Date Ameya Chaudhary MD [address] [place] [address] PCP - General 06/15/16 Damir Mendez MD [address] [place] [address] Surgeon Cardiothoracic Surgery 09/03/22 Unknown, Notinfile 09/03/22 documented as of this encounter
--- OUTSIDE RECORDS SUMMARY | 2024-10-30 10:14 | XMS_ITS | Encounter Summary ---
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 Gender Identity Male 12/31/2022 9:14 AM CDT Sexual Orientation Straight 12/31/2022 9: 14 AM CDT documented as of this encounter Plan of Treatment Not on file documented as of this encounter Procedures Procedure Name Priority Date/Time Associated Diagnosis Comments SCAN - LABS 06/03/2024 documented in this encounter Results * SCAN - LABS (06/03/2024) us Provider Scanning Final Result documented in this encounter Visit Diagnoses Not on filedocumented in this encounter Care Teams Neonatal Icu Coordinator Relationship Specialty Start Date End Date Ameya Chaudhary MD [address] [place] [address] PCP - General 06/15/16 Damir Mendez MD [address] [place] [address] Surgeon Cardiothoracic Surgery 09/03/22 Unknown, Notinfile 09/03/22 documented as of this encounter
--- OUTSIDE RECORDS SUMMARY | 2024-10-30 10:14 | XMS_ITS | Encounter Summary ---
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 Gender Identity Male 12/31/2022 9:14 AM CDT Sexual Orientation Straight 12/31/2022 9: 14 AM CDT documented as of this encounter Plan of Treatment Not on file documented as of this encounter Procedures Procedure Name Priority Date/Time Associated Diagnosis Comments SCAN - LABS 07/01/2024 documented in this encounter Results * SCAN - LABS (07/01/2024) us Provider Scanning Final Result documented in this encounter Visit Diagnoses Not on filedocumented in this encounter Care Teams Concrete Journeyman Relationship Specialty Start Date End Date Ameya Chaudhary MD [address] [place] [address] PCP - General 06/15/16 Damir Mendez MD [address] [place] [address] Surgeon Cardiothoracic Surgery 09/03/22 Unknown, Notinfile 09/03/22 documented as of this encounter
--- OUTSIDE RECORDS SUMMARY | 2024-10-30 10:14 | XMS_ITS | Encounter Summary ---
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 Gender Identity Male 12/31/2022 9:14 AM CDT Sexual Orientation Straight 12/31/2022 9: 14 AM CDT documented as of this encounter Plan of Treatment Not on file documented as of this encounter Procedures Procedure Name Priority Date/Time Associated Diagnosis Comments SCAN - LABS 06/17/2024 documented in this encounter Results * SCAN - LABS (06/17/2024) us Provider Scanning Final Result documented in this encounter Visit Diagnoses Not on filedocumented in this encounter Care Teams Mortgage Accounting Clerk Relationship Specialty Start Date End Date Ameya Chaudhary MD [address] [place] [address] PCP - General 06/15/16 Damir Mendez MD [address] [place] [address] Surgeon Cardiothoracic Surgery 09/03/22 Unknown, Notinfile 09/03/22 documented as of this encounter
--- OUTSIDE RECORDS SUMMARY | 2024-10-30 10:14 | XMS_ITS | Encounter Summary ---
Author Organization [facility] Healthcare Address [address] [place] [address] Care Team Providers Care High School Special Education Teacher Name Role Phone Ameya Chaudhary MD Primary Care Provider [phone] Damir Mendez MD Unavailable [phone] Unknown, Notinfile Unavailable Unavailable Encounter Details Date Type Department Care Team (Late st Contact Info) Description 07/17/2024 Orders Only [facility] [place] Information Management [address] [place] [address] Scanning, Provider Social History Tobacco Use [...] on file 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 Gender Identity Male 12/31/2022 9:14 AM CDT Sexual Orientation Straight 12/31/2022 9: 14 AM CDT documented as of this encounter Plan of Treatment Not on file documented as of this encounter Procedures Procedure Name Priority Date/Time Associated Diagnosis Comments SCAN - LABS 07/17/2024 documented in this encounter Results * SCAN - LABS (07/17/2024) us Provider Scanning Final Result documented in this encounter Visit Diagnoses Not on filedocumented in this encounter Care Teams High [employer] Special Education Teacher Relationship Specialty Start Date End Date Ameya Chaudhary MD [address] [place] [address] PCP - General 06/15/16 Damir Mendez MD [address] [place] [address] Surgeon Cardiothoracic Surgery 09/03/22 Unknown, Notinfile 09/03/22 documented as of this encounter
--- OUTSIDE RECORDS SUMMARY | 2024-10-30 10:14 | XMS_ITS | Encounter Summary ---
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 Gender Identity Male 12/31/2022 9:14 AM CDT Sexual Orientation Straight 12/31/2022 9: 14 AM CDT documented as of this encounter Plan of Treatment Not on file documented as of this encounter Procedures Procedure Name Priority Date/Time Associated Diagnosis Comments SCAN - LABS 07/14/2024 documented in this encounter Results * SCAN - LABS (07/14/2024) us Provider Scanning Final Result documented in this encounter Visit Diagnoses Not on filedocumented in this encounter Care Teams Systems Design Engineer Relationship Specialty Start Date End Date Ameya Chaudhary MD [address] [place] [address] PCP - General 06/15/16 Damir Mendez MD [address] [place] [address] Surgeon Cardiothoracic Surgery 09/03/22 Unknown, Notinfile 09/03/22 documented as of this encounter
--- OUTSIDE RECORDS SUMMARY | 2024-10-30 10:14 | XMS_ITS | Encounter Summary ---
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 Gender Identity Male 12/31/2022 9:14 AM CDT Sexual Orientation Straight 12/31/2022 9: 14 AM CDT documented as of this encounter Plan of Treatment Not on file documented as of this encounter Procedures Procedure Name Priority Date/Time Associated Diagnosis Comments SCAN - LABS 05/21/2024 documented in this encounter Results * SCAN - LABS (05/21/2024) us Provider Scanning Final Result documented in this encounter Visit Diagnoses Not on filedocumented in this encounter Care Teams Blasting Coal Miner Relationship Specialty Start Date End Date Ameya Chaudhary MD [address] [place] [address] PCP - General 06/15/16 Damir Mendez MD [address] [place] [address] Surgeon Cardiothoracic Surgery 09/03/22 Unknown, Notinfile 09/03/22 documented as of this encounter
--- NOTE | 2024-10-30 10:32 | ECG_ITS ---
Test Date: 2024-10-30 10:47:18 Measurements Intervals [place] Rate: 87 P: 0 [place]: 0 QRS: -82 QRSD: 160 T: 91 QT: 417 QTc: 504 Interpretive Statements ATRIAL FIBRILLATION LEFT AXIS DEVIATION LEFT BUNDLE BRANCH BLOCK BASELINE ARTIFACT- I, AVR ABNORMAL ECG No previous ECG available for comparison Electronically Signed On 10-30-2024 11:46:41 CDT by Keith Cottrell D.O.
[2024-10-30 10:53] LABS: Hematocrit 43.7 % (42.0-52.0); Hemoglobin 14.7 g/dL (14.0-18.0); Mean Corpuscular HGB Conc 33.6 g/dl (32-36); Mean Corpuscular Hemoglobin 33.4 pg (26-34); Mean Corpuscular Volume 99.3 fl (80-100); Platelet Count Result 250 k/mm3 (150-375); Red Blood Count 4.40 M/mm3 (4.6-6.20); White Blood Count 11.2 K/mm3 (4.5-10.0)
[2024-10-30 10:57] VITALS: O2SAT 97
[2024-10-30 10:58] VITALS: PULSE 85; RESP 16; O2SAT 87
[2024-10-30 11:05] LABS: INR 2.7; Prothrombin Time 28.5 Seconds (11.1-14.7)
[2024-10-30 11:06] LABS: Partial Thromboplastin Time 58.2 Seconds (22.3-36.8)
[2024-10-30 11:15] LABS: Band Neutrophils Percent 4 % (0-6); Basophils Absolute Manual 0.11 K/mm3 (0.0-0.1); Basophils Percent Manual 1 % (0-1); Eosinophils Absolute Manual 0.11 K/mm3 (0.02-0.50); Eosinophils Percent Manual 1 % (0-4); Lymphocytes Absolute Manual 0.89 K/mm3 (1.1-4.5); Lymphocytes Percent Manual 8 % (18-44); Monocytes Absolute Manual 1.00 K/mm3 (0.1-0.90); Monocytes Percent Manual 9 % (3-9); Neutrophils Absolute Manual 9.07 K/mm3 (1.3-6.7); Neutrophils Percent Manual 77 % (46-73); Total Cells Counted 100
[2024-10-30 11:16] LABS: Anisocytosis 1+; Burr Cells 1+; Schistocytes None Seen
[2024-10-30 11:25] LABS: Alanine Aminotransferase 34 U/L (6-50); Albumin Level 3.1 g/dL (3.5-5.1); Alkaline Phosphatase 331 U/L (38-126); Anion Gap 8 mmol/L (4-12); Aspartate Amino Transferase 52 U/L (17-59); Bilirubin,Total 1.2 mg/dL (0.2-1.3); Blood Urea Nitrogen 31 mg/dL (9-20); Calcium 8.5 mg/dL (8.4-10.2); Carbon Dioxide 22 mmol/L (22-30); Chloride 106 mmol/L (98-107); Estimated CRCL calculation 53 ml/min; Estimated Glomerular Filt Rate > 60; Glucose 117 mg/dL (65-110); Potassium 3.8 mmol/L (3.4-5.0); Sodium 136 mmol/L (137-145); Total Protein 6.4 g/dL (6.3-8.2)
[2024-10-30 11:36] LABS: NT Pro B Type Natriuretic Pept 11400 pg/mL (19.9-100); Troponin I 0.026 ng/mL (0.000-0.034)
--- NOTE | 2024-10-30 12:39 | ED.GENADULT ---
HPI - General Adult General Chief complaint: Extremity Problem,Nontraumatic Stated complaint: Left leg swelling Time Seen by Provider: 10/30/24 11:21 History of Present Illness HPI narrative: This is a 74-year-old male with venous stasis presenting for swollen left leg. Patient says that he has had increased swelling over the last 5 days. His leg is now become erythematous painful and warm to the touch. Is causing him difficulty and is painful to walk. He has not have any systemic signs of illness such as fevers chills nausea vomiting diarrhea. He was put on doxycycline and cefdinir by an outpatient physician but his leg is not improving. He was also supposed to be taking double his water pill however he has not done that as it makes him go to the bathroom too much. Related Data Home Medications ?Medication ?Instructions ?Recorded ?Confirmed ?Last Taken ?Type aspirin 81 mg tablet,delayed 81 mg PO HS 08/17/19 08/12/24 12/22/22 History release (Adult Low Dose Aspirin) cholecalciferol (vitamin D3) 50 50 mcg PO DAILY 06/23/20 08/12/24 12/26/22 History mcg (2,000 unit) capsule cyanocobalamin (vitamin B-12) 1,000 mcg PO QAM 07/27/22 08/12/24 12/26/22 History 1,000 mcg capsule metoprolol succinate 50 mg 50 mg PO DAILY 10/23/22 08/12/24 12/27/22 09:30 History tablet,extended release 24 hr tamsulosin 0.4 mg capsule 0.4 mg PO HS 10/24/22 08/12/24 12/26/22 History warfarin 4 mg tablet See Rx Instructions .Route .COMPLEX 08/30/23 08/12/24 Unknown History Allergies Allergy/AdvReac Type Severity Reaction Status Date / Time Penicillins Allergy Intermediate Rash Verified 10/30/24 10:57 [facility] Past Medical History Medical History (Updated 10/30/24 @ 13:15 by Ming Montiel MD) BMI 28.0-28.9,adult Cataract Common bile duct dilation Liver cyst Pancreatic cyst Cirrhosis Elevated liver function tests DJD (degenerative joint disease) of knee BMI 27.0-27.9,adult Borderline abnormal TFTs Retention of urine Bilateral hydronephrosis Hematuria BMI 24.0-24.9, adult Chronic hoarseness Unintentional weight loss BMI 26.0-26.9,adult Hospital discharge follow-up Pericarditis Abnormal CXR Impaired functional mobility, balance, gait, and endurance URI (upper respiratory infection) BMI 29.0-29.9,adult BPH (benign prostatic hyperplasia) Overactive bladder Hypervolemia Skin lesion Dry cough Color vision deficiency BMI 37.0-37.9, adult BMI 35.0-35.9,adult Cerumen debris on tympanic membrane of both ears Impacted cerumen of right ear Nummular eczema Plantar fasciitis Foot pain, left Pain and swelling of left lower extremity Cough variant asthma BMI 32.0-32.9,adult Dysphagia Cough Follow up BMI 31.0-31.9,adult Encounter for Medicare annual wellness exam Elevated serum creatinine Elevated alkaline phosphatase level Nocturia Mixed hyperlipidemia UTI (urinary tract infection) BMI 30.0-30.9,adult A-fib Vitamin B12 deficiency Encounter for routine adult health examination without abnormal findings BMI 34.0-34.9,adult Vitamin D deficiency DM w/o complication type II Encounter for routine adult health examination with abnormal findings Iron deficiency anemia Fatigue SOB (shortness of breath) Blepharitis of left eye BMI 36.0-36.9,adult Acute allergic conjunctivitis of left eye Surgical History Surgical History H/O pericardiectomy 09/07 [place] Aortic valve replaced History of tonsillectomy Family History Family History Mother Hypertension Sibling Hypertension Social History Social History Smoking status: Never smoker Second hand tobacco smoke exposure: Yes (Mother smoked ) Alcohol intake: current Drinks per week: 7 Substance use: never Substance use type: does not use Lack of Transportation: No Lack of Food: Never True Current Housing: I Have Housing Concerned About Future Housing: No Difficulty Paying Gas/Electric Bills: No Difficulty Paying for Meds: No Currently Unemployed: No Education: Bachelor's Degree Difficulty w/ Childcare or Family Care: No Living arrangements: with family Additional living arrangements comments: Occupation/Education: retired Gender identity (if verbalized by the patient): Male Sexual Orientation (if Verbalized by the Patient): Straight or Heterosexual Spiritual care concerns: No Agree to blood products: Yes Exam Narrative: APPEARANCE: No apparent distress. Head: atraumatic. EYES: EOMI, NOSE: Atraumatic NECK: Trachea midline RESPIRATORY: No increased rate of breathing clear to auscultation CARDIOVASCULAR: RRR, weeping edema lower extremities ABDOMINAL: Non-distended MUSCULOSKELETAl: No obvious deformities NEURO: Alert. Moving 4/4 extremities SKIN:: lipodermatosclerosis of the lower extremities, left leg is edematous erythematous and warm to the touch. Multiple small wounds to both lower extremities that are oozing PSYCHIATRIC: Normal affect Course Vital Signs Vital signs: Vital Signs Temperature 98.3 F 10/30/24 10:11 Pulse Rate 92 10/30/24 10:11 Respiratory Rate 18 10/30/24 10:11 Blood Pressure 121/72 10/30/24 10:11 Pulse Oximetry 93 10/30/24 10:11 Oxygen Delivery Room Air 10/30/24 10:11 Temperature 98.3 F 10/30/24 10:11 Pulse Rate 85 10/30/24 10:58 Respiratory Rate 16 10/30/24 10:58 Blood Pressure 121/72 10/30/24 10:11 Pulse Oximetry 87 L 10/30/24 10:58 Oxygen Delivery Nasal Cannula 10/30/24 10:57 Oxygen Flow Rate 2 10/30/24 10:57 Medical Decision Making [facility] Narrative Medical decision making narrative: -Course: 74-year-old male presenting with weeping edema of his lower extremities. On exam his leg is erythematous but if you raise his legs it quickly returns to a normal color. This is consistent with venous insufficiency. Patient's wounds were evaluated by the wound care clinic and they have been cleaned and dressed appropriately. They are not concerned for infection at this time. Patient had some low saturation readings in triage but has been on room air throughout his stay with no desaturations. He does not have any shortness of breath. Patient should continue to take double dose of Lasix for the next several days until he sees his primary care physician. We discussed admission versus discharge they are comfortable going home. Patient given strict return precautions. -DDX includes but is not limited to: Venous insufficiency, cellulitis congestive heart failure Vital Signs Vital Signs: Vital Signs Temperature 98.3 F 10/30/24 10:11 Pulse Rate 92 10/30/24 10:11 Respiratory Rate 18 10/30/24 10:11 Blood Pressure 121/72 10/30/24 10:11 Pulse Oximetry 93 10/30/24 10:11 Oxygen Delivery Room Air 10/30/24 10:11 Temperature 98.3 F 10/30/24 10:11 Pulse Rate 85 10/30/24 10:58 Respiratory Rate 16 10/30/24 10:58 Blood Pressure 121/72 10/30/24 10:11 Pulse Oximetry 87 L 10/30/24 10:58 Oxygen Delivery Nasal Cannula 10/30/24 10:57 Oxygen Flow Rate 2 10/30/24 10:57 Lab Data 10/30/24 10:40 10/30/24 10:40 Labs: Lab Results 10/30/24 10/30/24 Range/Units 10:40 12:56 WBC 11.2 H (4.5-10.0) K/mm3 RBC 4.40 L (4.6-6.20) M/mm3 Hgb 14.7 (14.0-18.0) g/dL Hct 43.7 (42.0-52.0) % MCV 99.3 (80-100) fl MCH 33.4 (26-34) pg MCHC 33.6 (32-36) g/dl RDW 13.7 (11.5-14.5) % Plt Count 250 D (150-375) k/mm3 MPV 9.5 (7.4-10.4) fl Immature Gran % (Auto) Not Reportable Neut % (Auto) Not Reportable Lymph % (Auto) Not Reportable Gem % (Auto) Not Reportable Eos % (Auto) Not Reportable Baso % (Auto) Not Reportable Lymph # (Auto) Not Reportable Gem # (Auto) Not Reportable Eos # (Auto) Not Reportable Baso # (Auto) Not Reportable Abs Immat Gran (auto) Not Reportable Absolute Neuts (auto) Not Reportable Absolute Nucleated RBC Not Reportable Total Counted 100 Neutrophils % (Manual) 77 H (46-73) % Band Neutrophils % 4 (0-6) % Lymphocytes % (Manual) 8 L (18-44) % Monocytes % (Manual) 9 (3-9) % Eosinophils % (Manual) 1 (0-4) % Basophils % (Manual) 1 (0-1) % Nucleated RBC % Not Reportable Abs Neuts (Manual) 9.07 H (1.3-6.7) K/mm3 Abs Lymphs (Manual) 0.89 L (1.1-4.5) K/mm3 Abs Monocytes (Manual) 1.00 H (0.1-0.90) K/mm3 Absolute Eos (Manual) 0.11 (0.02-0.50) K/mm3 Abs Basophils (Manual) 0.11 H (0.0-0.1) K/mm3 Platelet Estimate Adequate (Adequate) Anisocytosis 1+ [place] Cells 1+ Schistocytes None seen PT 28.5 H (11.1-14.7) Seconds INR 2.7 APTT 58.2 H (22.3-36.8) Seconds Sodium 136 L (137-145) mmol/L Potassium 3.8 (3.4-5.0) mmol/L Chloride 106 (98-107) mmol/L Carbon Dioxide 22 (22-30) mmol/L Anion Gap 8 (4-12) mmol/L BUN 31 H (9-20) mg/dL Creatinine 1.08 (0.7-1.3) mg/dL Estim Creat Clear Calc 53 ml/min Estimated GFR > 60 (59 - ) Glucose 117 H (65-110) mg/dL Lactic Acid Pending Calcium 8.5 (8.4-10.2) mg/dL Total Bilirubin 1.2 (0.2-1.3) mg/dL AST 52 (17-59) U/L ALT 34 (6-50) U/L Alkaline Phosphatase 331 H (38-126) U/L Troponin I 0.026 (0.000-0.034) ng/mL NT-Pro-B Natriuret Pep 60078 H (19.9-100) pg/mL Total Protein 6.4 (6.3-8.2) g/dL Albumin 3.1 L (3.5-5.1) g/dL Discharge Plan Discharge Clinical Impression: Chronic venous insufficiency, Edema Patient Disposition: Home Condition: Stable Instructions: Antibiotic Form, Edema (ED) Additional Instructions: He was seen emergency department for edema of your lower extremities. Please continue to take double your Lasix dose as instructed by your previous physician. You can complete the antibiotics as instructed. Please follow-up with your primary care physician and the wound care clinic for further management. If you develop shortness of breath, fevers or worsening edema of your legs you can return to the ED for re-evaluation. Patient Language: Citizen Of [place] Prescriptions: No Action aspirin [Adult Low Dose Aspirin] 81 mg tablet,delayed release (DR/EC) 81 mg PO HS warfarin 4 mg tablet See Rx Instructions .ROUTE .COMPLEX Rx Instructions: take one tablet every evening metoprolol succinate 50 mg tablet extended release 24 hr 50 mg PO DAILY cholecalciferol (vitamin D3) 50 mcg (2,000 unit) Capsule 50 mcg PO DAILY cyanocobalamin (vitamin B-12) 1,000 mcg Capsule 1,000 mcg PO QAM tamsulosin 0.4 mg capsule 0.4 mg PO HS finasteride [Proscar] 5 mg Tablet 5 mg PO QAM Qty: 30 1RF ferrous sulfate 325 mg (65 mg iron) tablet See Rx Instructions .ROUTE .COMPLEX Qty: 90 1RF Dose Instruction: TAKE 1 TABLET BY MOUTH EVERY DAY Rx Instructions: TAKE 1 TABLET BY MOUTH EVERY DAY furosemide 20 mg tablet See Rx Instructions .ROUTE .COMPLEX Qty: 90 1RF Dose Instruction: TAKE 1 TABLET BY MOUTH EVERY DAY Rx Instructions: TAKE 1 TABLET BY MOUTH EVERY DAY Folplex 2.2 2.2-25-0.5 mg tablet See Rx Instructions .ROUTE .COMPLEX Qty: 90 0RF Dose Instruction: TAKE 1 TABLET BY MOUTH EVERY DAY Rx Instructions: TAKE 1 TABLET BY MOUTH EVERY DAY pantoprazole 40 mg tablet,delayed release (DR/EC) See Rx Instructions .ROUTE .COMPLEX Qty: 90 1RF Dose Instruction: TAKE 1 TABLET BY MOUTH EVERY DAY Rx Instructions: TAKE 1 TABLET BY MOUTH EVERY DAY atorvastatin 80 mg tablet See Rx Instructions .ROUTE .COMPLEX Qty: 90 1RF Dose Instruction: TAKE 1 TABLET BY MOUTH EVERY DAY Rx Instructions: TAKE 1 TABLET BY MOUTH EVERY DAY lisinopril 20 mg tablet See Rx Instructions .ROUTE .COMPLEX Qty: 90 1RF Dose Instruction: TAKE 1 TABLET BY MOUTH EVERY DAY Rx Instructions: TAKE 1 TABLET BY MOUTH EVERY DAY metformin 500 mg tablet See Rx Instructions .ROUTE .COMPLEX Qty: 180 1RF Dose Instruction: TAKE 1 TABLET BY MOUTH TWICE A DAY WITH FOOD Rx Instructions: TAKE 1 TABLET BY MOUTH TWICE A DAY WITH FOOD doxycycline hyclate 100 mg tablet 100 mg PO BID Qty: 20 0RF cefdinir 300 mg capsule 300 mg PO Q12H Qty: 14 0RF Follow-up/Referrals: Ameya Chaudhary MD [Primary Care Provider] -
--- OUTSIDE RECORDS SUMMARY | 2024-10-30 13:24 | XMS_ITS | Clinical Summary ---
Author Organization [facility] [place] [address] Address [address] [place] [address] Care Team Providers Care Aerial Hurricane Hunter Name Role Phone Ameya Chaudhary MD Primary Care Provider [phone] Damir Mendez MD Unavailable [phone] Unknown, Notinfile Unavailable Unavailable Allergies Active [...] replacement (25mm [place]) in 1999 at [facility] Anticoagulated with Coumadin at home, see above Coumadin restarted 08/24 Assessment & Plan (08/19/2022 2:37 PM CDT): S/P aortic valve replacement (25mm [place]) in 1999 at [facility] Anticoagulated with Coumadin at home, will hold INR < 2- started on heparin drip - stopping at midnight for OR 1st case tomorrow Monitor telemetry Assessment & Plan (08/11/2022 10:14 AM CDT): S/P aortic valve replacement (25mm [place]) in 1999 at [facility] Anticoagulated with Coumadin at home, will hold [...] lab draws, difficult access 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) use of anticoagulants [Z79.0 1] 09/19/2016 [...] and RHC at OSH-will request imaging from [facility] Monitor telemetry ECHO done 08/11 showed EF 42% no effusion, severe pulm HTN and mild MR and TR Plan for OR tomorrow Assessment & Plan (08/19/2022 2:37 PM CDT): 07/31/22 TTE at OSH: Mild regurg of bioprosthetic aortic valve, mild TVR, severe pulmonary hypertension (estimated PA systolic pressure 73mmHg), EF 60-65% 07/30: LHC and RHC at OSH-will request imaging from [facility] Monitor telemetry ECHO done 08/11 showed EF [...] Department Care Team Description 10/28/2024 Anticoagulation Visit [facility] Cardiology [address] [place] [address] [place] [phone] Rossi Small RN intermediate (current) use of anticoagulants [Z79.01] (Primary Dx) 10/14/2024 Anticoagulation Visit [facility]iology [address] [place] [address] [place] [phone] Rossi Small RN resilient tile installer (current) use of anticoagulants [Z79.01] (Primary Dx) 09/30/2024 Orders Only [facility] [place] Health Information Management [address] [place] [address] Scanning, Provider 09/30/2024 Anticoagulation Visit [facility]iology [address] [place] [address] [place] [phone] Rossi Small RN intermediate (current) use of anticoagulants [Z79.01] (Primary Dx) 09/17/2024 Anticoagulation Visit [facility]iology [address] [place] [address] [place] [phone] Rossi Small RN resilient tile installer (current) use of anticoagulants [Z79.01] (Primary Dx) 09/02/2024 Anticoagulation Visit [facility]iology [address] [place] [address] [address] [place] [phone] Rossi Small RN resilient tile installer (current) use of anticoagulants [Z79.01] (Primary Dx) 08/19/2024 Orders Only [facility] [place] Health Information Management [address] [place] [address] Scanning, Provider 08/19/2024 Anticoagulation Visit [facility]iology [address] [place] [address] Elio Mejia RN intermediate (current) use of anticoagulants [Z79.01] (Primary Dx) 08/11/2024 Results Follow-Up [facility] [address] [facility] [address] [place] [address] [place] [phone] Joanna Amos MD [id number], Tumor Marker, Comprehensive metabolic panel 08/05/2024 Orders Only [facility] Health Information Management [address] [place] [address] Scanning, Provider 08/05/2024 Anticoagulation Visit [facility]iology [address] [place] [address] Elio Mejia RN intermediate (current) use of anticoagulants [Z79.01] (Primary Dx) [...] on file 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 Gender Identity Male 12/31/2022 9:14 AM CDT [...] history exists Medical Devices Implanted Type Area Help Aid Device Identifier Shelf Expiration Date Model / Serial / Lot [employer] Sternalock 360 Sternal Closure 74-0004 - [id number] Implanted:Qty: 1 on 08/20/2022 by Cherry Macias MD at [facility] N/A: Chest [employer] [id number] 07/11/2027 74-0004 / / [id number] [employer] Sternalock Vineet 2.4mm 16mm Self Drill Lock Sternum Cancellous 73-2416 - [id number] Implanted:Qty: 8 on 08/20/2022 by Cherry Macias MD at [facility] N/A: Chest [employer] 73-2416 / / [employer] Sternalock Vineet 2.4mm 18mm Self Drill Lock Sternum Cancellous 73-2418 - [id number] Implanted:Qty: 2 on 08/20/2022 by Damir Mendez MD at [facility] N/A: Chest [employer] 73-2418 / / [employer] Sternalock Vineet 2.4mm 20mm Self Drill Lock Sternum Cancellous 73-2420 - [id number] Implanted:Qty: 6 on 08/20/2022 by Damir Mendez MD at [facility] N/A: Chest [employer] 73-2420 / / Explanted Type Area Help Aid Device Identifier Shelf Expiration Date Model / Serial / Lot [employer] Ligaclip Extra 3.2mm Ligate Open Medium Clip Internal Titanium Latex Free Lt200 - [id number] Explanted:Qty: 3 on 08/20/2022 at [facility] N/A: Chest [employer] LT200 / [...] cirrhosis type, unspecified whether ascites present (HCC) [id number], TUMOR MARKER Routine 08/06/2024 8:40 AM CDT [...] 0.90 - 1.10 EXTERNAL LAB Blood Result [facility] Provider MD LAB BLOOD ORDERABLES Edit ed Result - Final Performing Organization Address [facility] de Phone Number EXTERNAL LAB * SCAN - LABS (09/30/2024) Provider Scanning Final Result * (ABNORMAL) Protime-INR (09/30/2024) INR 2.50(A) 0.90 - 1.10 EXTERNAL LAB Blood Result [facility] Provider MD LAB BLOOD ORDERABLES Ghislaine l Result Performing Organization Address [facility] de Phone Number EXTERNAL LAB * (ABNORMAL) Protime-INR (09/17/2024) INR 3.00(A) 0.90 - 1.10 EXTERNAL LAB Blood Result [facility] Provider MD LAB BLOOD ORDERABLES Edit ed Result - Final Performing Organization Address [facility] de Phone Number EXTERNAL LAB * (ABNORMAL) Protime-INR (09/03/2024 9:28 PM CDT) INR 2.80(A) 0.90 - 1.10 EXTERNAL LAB Blood Result [facility] Provider MD LAB BLOOD ORDERABLES Edit ed Result - Final Performing Organization Address [facility] Co de Phone Number EXTERNAL LAB * SCAN - LABS (08/19/2024) Provider Scanning Final Result * (ABNORMAL) Protime-INR (08/19/2024) [facility] INR 3.10(A) 0.90 - 1.10 EXTERNAL LAB Blood 08/19/2024 [place] Provider LAB BLOOD ORDERABLES Ghislaine l Result Performing Organization Address [facility] Co de Phone Number EXTERNAL LAB * [id number], Tumor Marker (08/06/2024 8:40 AM CDT) [facility] alpha Fetoprotein, tumor marker 2.8 0.0 [...] - 08/07/2024 11:11 AM CDT Performed at: [address] [place], [place] [id number] [place] Teacher: Gary Atkinson PhD, Phone: [phone] Joanna Amos MD LAB BLOOD ORDERABLES Fi nal Result Performing Organization Address [facility] Co de Phone Number [facility] - 01 * (ABNORMAL) Comprehensive metabolic panel (08/06/2024 8:40 AM CDT) [facility] Glucose 104(H) 70 - 99 mg/dL [...] - 08/07/2024 2:08 AM CDT Performed at: [address] [place] [id number] [place] Teacher: Gary Atkinson PhD, Phone: [phone] Joanna Amos MD LAB BLOOD ORDERABLES Fi nal Result Performing Organization Address [facility]/ZIP Co de Phone Number [facility] - 01 * SCAN - LABS (08/05/2024) Provider Scanning Final Result * (ABNORMAL) Protime-INR (08/05/2024) Pathologist [facility] INR 2.20(A) 0.90 - 1.10 EXTERNAL LAB [...] Hgb A1C 5.5 4.0 - 5.6 % [facility] Estimated Average Glucose 111 mg/dL [facility] Comment: The ADA recommends reporting an [...] Arreola NP LAB BLOOD ORDERABLES Final Result [facility] Department [place] [address] from Last 3 Months or Most Recently Relevant to Health Maintenance Insurance MEDICARE REPLACED BY [facility] MEDICARE BLUE CROSS MEDICARE SUPPLEMENT [facility] MEDICARE SUPPLEMENT Advance Directives For more information, please contact: [phone] Documents on File Type Date Recorded Patient Career Education Teacher Expl anation ADVANCE DIRECTIVE 09/05/2022 7:41 PM POWER OF ELEMENTARY SUBSTITUTE TEACHER-MEDICAL * Full Code (Latest Code Status on File) Date Activated Date Inactivated Comments 08/10/2022 7:57 PM 09/03/2022 9:07 PM Care Teams Aerial Hurricane Hunter Relationship Specialty Start Date End Date Ameya Chaudhary MD [address] [place] [address] PCP - General 06/15/16 Damir Mendez MD [address] [place] [address] Surgeon Cardiothoracic Surgery 09/03/22 Unknown, Notinfile 09/03/22
--- OUTSIDE RECORDS SUMMARY | 2024-10-30 13:24 | XMS_ITS | Encounter Summary ---
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
--- OUTSIDE RECORDS SUMMARY | 2024-10-30 13:24 | XMS_ITS | Encounter Summary ---
Author Organization [facility] Healthcare Address [address] [place] [address] Care Team Providers Care Software Test And Validation Engineer Name Role Phone Ameya Chaudhary MD Primary Care Provider [phone] Damir Mendez MD Unavailable [phone] Unknown, Notinfile Unavailable Unavailable Encounter Details Date Type Department Care Team (Late st Contact Info) Description 02/19/2024 Orders Only [facility] [place] [address] [place] [id number] Scanning, Provider Social History Tobacco Use [...] on file 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
--- OUTSIDE RECORDS SUMMARY | 2024-10-30 13:24 | XMS_ITS | Clinical Summary ---
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 Gender Identity Not on file Sexual Orientation Not on file Plan of Treatment Health Maintenance Due Date Last Done Comments Hepatitis C 1966 DTaP, Tdap and Td Vaccines ( 1 - Tdap) 1967 Pneumococcal Vaccine: 50+ Ye ars (1 of 1 - PCV) 1998 Zoster Vaccines (1 of 2) 1998 RSV Immunization or 60+ Years (1 - 1-dose 75+ series) 2023 COVID-19 Vaccine ( - 2023-2 5 season) 2023 Meningococcal B Vaccine Aged Out No l onger eligible based on patient's age to complete this topic Meningococcal Vaccine Aged Out No selina cari eligible based on patient's age to complete this topic RSV Immunizations Under 20 Months Aged Out No longer eligible based on patient's age to complete this topic
--- OUTSIDE RECORDS SUMMARY | 2024-10-30 13:24 | XMS_ITS | Encounter Summary ---
Author Organization 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
--- OUTSIDE RECORDS SUMMARY | 2024-10-30 13:24 | XMS_ITS | Encounter Summary ---
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
--- OUTSIDE RECORDS SUMMARY | 2024-10-30 13:24 | XMS_ITS | Encounter Summary ---
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
--- OUTSIDE RECORDS SUMMARY | 2024-10-30 13:24 | XMS_ITS | Encounter Summary ---
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
--- OUTSIDE RECORDS SUMMARY | 2024-10-30 13:24 | XMS_ITS | Encounter Summary ---
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
--- OUTSIDE RECORDS SUMMARY | 2024-10-30 13:24 | XMS_ITS | Encounter Summary ---
Author Organization [facility] Healthcare Address [address] [place] [address] Care Team Providers Care Animal Rides Manager Name Role Phone Ameya Chaudhary MD Primary Care Provider [phone] Damir Mendez MD Unavailable [phone] Unknown, Notinfile Unavailable Unavailable Encounter Details Date Type Department Care Team (Late st Contact Info) Description 08/30/2021 Orders Only [facility] [place] Health Information Management [address] [place] [address] Scanning, Provider Social History Tobacco Use Types Packs/Day Years Used Date Smoking Tobacco: Never Smokeless Tobacco: Never Alcohol Use Standard Drinks/Week Comments Yes 0 (1 standard drink = 0.6 oz pur e alcohol) Sex and Gender Information Value Date Recorded Sex Assigned at Not on file 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
--- OUTSIDE RECORDS SUMMARY | 2024-10-30 13:24 | XMS_ITS | Encounter Summary ---
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
--- OUTSIDE RECORDS SUMMARY | 2024-10-30 13:24 | XMS_ITS | Encounter Summary ---
Author Organization 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
--- OUTSIDE RECORDS SUMMARY | 2024-10-30 13:24 | XMS_ITS | Encounter Summary ---
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
--- OUTSIDE RECORDS SUMMARY | 2024-10-30 13:24 | XMS_ITS | Encounter Summary ---
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
--- OUTSIDE RECORDS SUMMARY | 2024-10-30 13:24 | XMS_ITS | Encounter Summary ---
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
--- OUTSIDE RECORDS SUMMARY | 2024-10-30 13:24 | XMS_ITS | Encounter Summary ---
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
--- OUTSIDE RECORDS SUMMARY | 2024-10-30 13:24 | XMS_ITS | Encounter Summary ---
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
--- OUTSIDE RECORDS SUMMARY | 2024-10-30 13:24 | XMS_ITS | Encounter Summary ---
Author Organization 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
--- OUTSIDE RECORDS SUMMARY | 2024-10-30 13:24 | XMS_ITS | Encounter Summary ---
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
--- OUTSIDE RECORDS SUMMARY | 2024-10-30 13:24 | XMS_ITS | Encounter Summary ---
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
--- OUTSIDE RECORDS SUMMARY | 2024-10-30 13:24 | XMS_ITS | Encounter Summary ---
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
--- OUTSIDE RECORDS SUMMARY | 2024-10-30 13:24 | XMS_ITS | Encounter Summary ---
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
--- OUTSIDE RECORDS SUMMARY | 2024-10-30 13:24 | XMS_ITS | Encounter Summary ---
Author Organization 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
--- OUTSIDE RECORDS SUMMARY | 2024-10-30 13:24 | XMS_ITS | Encounter Summary ---
Author Organization 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
--- OUTSIDE RECORDS SUMMARY | 2024-10-30 13:24 | XMS_ITS | Encounter Summary ---
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
[2024-10-30 13:48] VITALS: BP 132/84; PULSE 91; RESP 16; O2SAT 94
== END 2024-10-30 13:49 | disposition home or self-care (01) ==
LOC: ANHED 13:20
PROVIDERS: Physician Assistant; Emergency Provider Emergency Medicine; PCP Internal Medicine
DX: I87.2 Venous insufficiency (chronic) (peripheral) (principal); R60.0 Localized edema; I48.91 Unspecified atrial fibrillation; E11.9 Type 2 diabetes mellitus without complications; K74.60 Unspecified cirrhosis of liver; J45.991 Cough variant asthma; N40.0 Benign prostatic hyperplasia without lower urinary tract symptoms; E78.2 Mixed hyperlipidemia; E53.8 Deficiency of other specified B group vitamins; E55.9 Vitamin D deficiency, unspecified; N32.81 Overactive bladder; D50.9 Iron deficiency anemia, unspecified; M17.10 Unilateral primary osteoarthritis, unspecified knee; Z95.2 Presence of prosthetic heart valve; Z77.22 Contact with and (suspected) exposure to environmental tobacco smoke (acute) (chronic); I44.7 Left bundle-branch block, unspecified; Z79.01 Long term (current) use of anticoagulants; Z79.82 Long term (current) use of aspirin; Z79.84 Long term (current) use of oral hypoglycemic drugs; Z79.899 Other long term (current) drug therapy
CPT/HCPCS: 36415; 71046; 80053; 83605; 83880; 84484; 85025; 85610; 85730; 87040; 93005; 99284

== ENCOUNTER 2024-11-11 14:38 | Outpatient (CLI) | payer MEDICARE, SELFPAY ==
--- NOTE | ~2024-11-11 | XR_ITS ---
XR chest 2V 11/11/2024 14:54 Indication: Cough for a few months Procedure: 2 view chest Comparison: Comparison to multiple prior studies sequentially, with oldest reviewed study dated 10/30/2024. Findings: Cardiomegaly. Bibasilar airspace disease. Small pleural effusions. Status post median sternotomy. Chronic bibasilar infiltrates with small pleural effusions. Impression: 1: Chronic bibasilar infiltrates, likely atelectasis and/or scarring. 2: Small pleural effusions. 3: Cardiomegaly. Reviewed, dictated and finalized at location O. Impression: 1: Chronic bibasilar infiltrates, likely atelectasis and/or scarring. 2: Small pleural effusions. 3: Cardiomegaly.
--- OUTSIDE RECORDS SUMMARY | 2024-11-11 14:45 | XMS_ITS | Encounter Summary ---
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
--- OUTSIDE RECORDS SUMMARY | 2024-11-11 14:45 | XMS_ITS | Encounter Summary ---
Author Organization [facility] Healthcare Address [address] [place] [address] Care Team Providers Care Grease Renderer Name Role Phone Ameya Chaudhary MD Primary Care Provider [phone] Damir Mendez MD Unavailable [phone] Unknown, Notinfile Unavailable Unavailable Encounter Details Date Type Department Care Team (Late st Contact Info) Description 02/19/2024 Orders Only [facility] [place] [address] [place] [address] Scanning, Provider Social History Tobacco Use [...] on file 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
--- OUTSIDE RECORDS SUMMARY | 2024-11-11 14:45 | XMS_ITS | Encounter Summary ---
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
--- OUTSIDE RECORDS SUMMARY | 2024-11-11 14:45 | XMS_ITS | Encounter Summary ---
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
--- OUTSIDE RECORDS SUMMARY | 2024-11-11 14:45 | XMS_ITS | Encounter Summary ---
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
--- OUTSIDE RECORDS SUMMARY | 2024-11-11 14:45 | XMS_ITS | Encounter Summary ---
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 Gender Identity Male 12/31/2022 9:14 AM CDT Sexual Orientation Straight 12/31/2022 9: 14 AM CDT documented as of this encounter Plan of Treatment Not on file documented as of this encounter Procedures Procedure Name Priority Date/Time Associated Diagnosis Comments SCAN - LABS 04/22/2024 documented in this encounter Results * SCAN - LABS (04/22/2024) us Provider Scanning Final Result documented in this encounter Visit Diagnoses Not on filedocumented in this encounter Care Teams Deputy Attorney General Relationship Specialty Start Date End Date Ameya Chaudhary MD [address] [place] [address] PCP - General 06/15/16 Damir Mendez MD [address] [place] [address] Surgeon Cardiothoracic Surgery 09/03/22 Unknown, Notinfile 09/03/22 documented as of this encounter
--- OUTSIDE RECORDS SUMMARY | 2024-11-11 14:45 | XMS_ITS | Encounter Summary ---
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
--- OUTSIDE RECORDS SUMMARY | 2024-11-11 14:45 | XMS_ITS | Encounter Summary ---
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
--- OUTSIDE RECORDS SUMMARY | 2024-11-11 14:45 | XMS_ITS | Encounter Summary ---
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
--- OUTSIDE RECORDS SUMMARY | 2024-11-11 14:45 | XMS_ITS | Encounter Summary ---
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 Gender Identity Male 12/31/2022 9:14 AM CDT Sexual Orientation Straight 12/31/2022 9: 14 AM CDT documented as of this encounter Plan of Treatment Not on file documented as of this encounter Procedures Procedure Name Priority Date/Time Associated Diagnosis Comments SCAN - LABS 06/19/2023 documented in this encounter Results * SCAN - LABS (06/19/2023) us Provider Scanning Final Result documented in this encounter Visit Diagnoses Not on filedocumented in this encounter Care Teams Case Assistant Relationship Specialty Start Date End Date Ameya Chaudhary MD [address] [place] [address] PCP - General 06/15/16 Damir Mendez MD [address] [place] [address] Surgeon Cardiothoracic Surgery 09/03/22 Unknown, Notinfile 09/03/22 documented as of this encounter
--- OUTSIDE RECORDS SUMMARY | 2024-11-11 14:45 | XMS_ITS | Encounter Summary ---
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
--- OUTSIDE RECORDS SUMMARY | 2024-11-11 14:45 | XMS_ITS | Encounter Summary ---
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
--- OUTSIDE RECORDS SUMMARY | 2024-11-11 14:45 | XMS_ITS | Clinical Summary ---
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
--- OUTSIDE RECORDS SUMMARY | 2024-11-11 14:45 | XMS_ITS | Encounter Summary ---
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 Gender Identity Male 12/31/2022 9:14 AM CDT Sexual Orientation Straight 12/31/2022 9: 14 AM CDT documented as of this encounter Plan of Treatment Not on file documented as of this encounter Procedures Procedure Name Priority Date/Time Associated Diagnosis Comments SCAN - LABS 05/08/2023 documented in this encounter Results * SCAN - LABS (05/08/2023) us Provider Scanning Final Result documented in this encounter Visit Diagnoses Not on filedocumented in this encounter Care Teams Staffing Executive Relationship Specialty Start Date End Date Ameya Chaudhary MD [address] [place] [address] PCP - General 06/15/16 Damir Mendez MD [address] [place] [address] Surgeon Cardiothoracic Surgery 09/03/22 Unknown, Notinfile 09/03/22 documented as of this encounter
--- OUTSIDE RECORDS SUMMARY | 2024-11-11 14:45 | XMS_ITS | Encounter Summary ---
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
--- OUTSIDE RECORDS SUMMARY | 2024-11-11 14:45 | XMS_ITS | Clinical Summary ---
Author Organization [facility] [place] [facility] [address] Address [address] [place] [address] Care Team Providers Care Lacquerer Name Role Phone Ameya Chaudhary MD Primary Care Provider [phone] Damir Mendez MD Unavailable [phone] Unknown, Notinfile Unavailable Unavailable Allergies Active [...] replacement (25mm Saint Jimbo) in 1999 at [facility] Anticoagulated with Coumadin at home, see above Coumadin restarted 08/24 Assessment & Plan (08/19/2022 2:37 PM CDT): S/P aortic valve replacement (25mm Saint Jimbo) in 1999 at [facility] Anticoagulated with Coumadin at home, will hold INR < 2- started on heparin drip - stopping at midnight for OR 1st case tomorrow Monitor telemetry Assessment & Plan (08/11/2022 10:14 AM CDT): S/P aortic valve replacement (25mm Saint Jimbo) in 1999 at [facility] Anticoagulated with Coumadin at home, will [...] lab draws, difficult access Working on placement intermediate designer (current) use of anticoagulants [Z79.0 1] 09/19/2016 [...] and RHC at OSH-will request imaging from [facility] Monitor telemetry ECHO done 08/11 showed EF 42% no effusion, severe pulm HTN and mild MR and TR Plan for OR tomorrow Assessment & Plan (08/19/2022 2:37 PM CDT): 07/31/22 TTE at OSH: Mild regurg of bioprosthetic aortic valve, mild TVR, severe pulmonary hypertension (estimated PA systolic pressure 73mmHg), EF 60-65% 07/30: LHC and RHC at OSH-will request imaging from [facility] Monitor telemetry ECHO done 08/11 showed EF [...] Encounters Date Type Department Care Team Description 11/09/2024 Anticoagulation Visit [facility] Card[facility] [address] [place] [address] [address] [place] [phone] Rossi Small RN correction (current) use of anticoagulants [Z79.01] (Primary Dx) 11/09/2024 Telephone [facility] Cardiology [address] [place] [address] [address] [place] [phone] Reid Bush MD 11/06/2024 Anticoagulation Visit [facility] Card[facility] [address] [place] [address] [address] [place] [phone] Rossi Small RN correction (current) use of anticoagulants [Z79.01] (Primary Dx) 11/05/2024 Telephone [facility] Cardiology [address] [place] [address] [address] [place] [phone] Reid Bush MD 11/02/2024 Anticoagulation Visit [facility] Card[facility] [address] [facility] [address] [place] [phone] Ronda Gibson RN correction (current) use of anticoagulants [Z79.01] (Primary Dx) 10/31/2024 Orders Only [facility] Health Information Management [address] [place] [address] Scanning, Provider 10/28/2024 Orders Only [facility] Health Information Management [address] [place] [address] Scanning, Provider 10/28/2024 Anticoagulation Visit [facility] Cardiology [address] [place] [address] [place] [phone] Rossi Small RN intermediate designer (current) use of anticoagulants [Z79.01] (Primary Dx) 10/14/2024 Anticoagulation Visit [facility] Cardiology [address] [place] [address] [place] [phone] Rossi Small RN intermediate designer (current) use of anticoagulants [Z79.01] (Primary Dx) 09/30/2024 Orders Only [facility] Health Information Management [address] [place] [address] Scanning, Provider 09/30/2024 Anticoagulation Visit [address] [phone] Rossi Small RN intermediate designer (current) use of anticoagulants [Z79.01] (Primary Dx) 09/17/2024 Anticoagulation Visit [address] [phone] Rossi Small RN correction (current) use of anticoagulants [Z79.01] (Primary Dx) 09/02/2024 Anticoagulation Visit [address] [phone] Rossi Small RN correction (current) use of anticoagulants [Z79.01] (Primary Dx) 08/19/2024 Orders Only [facility] Health Information Management [address] [place] [address] Scanning, Provider 08/19/2024 Anticoagulation Visit [facility] Cardiology [address] [place] [address] [place] [phone] Elio Mejia RN intermediate designer (current) use of anticoagulants [Z79.01] (Primary Dx) 08/11/2024 Results Follow-Up [facility] Medicine Gastroenterology [address] [facility] 12th [place] [address] [place] [phone] Joanna Amos MD [id number], Tumor Marker, Comprehensive metabolic panel from Last 3 Months Immunizations Immunization Administration [...] on file 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 Gender Identity Male 12/31/2022 9:14 AM [...] history exists Medical Devices Implanted Type Area Metal Machine Setter Device Identifier Shelf Expiration Date Model / Serial / Lot [employer] Sternalock 360 Sternal Closure 74-0004 - [id number] Implanted:Qty: 1 on 08/20/2022 by Cherry Macias MD at [facility] N/A: Chest [employer] [id number] 07/11/2027 74-0004 / / [id number] [employer] Sternalock Vineet 2.4mm 16mm Self Drill Lock Sternum Cancellous 73-2416 - [id number] Implanted:Qty: 8 on 08/20/2022 by Cheryr Macias MD at [facility] N/A: Chest [employer] 73-2416 / / [employer] Sternalock Vineet 2.4mm 18mm Self Drill Lock Sternum Cancellous 73-2418 - [id number] Implanted:Qty: 2 on 08/20/2022 by Damir Mendez MD at [facility] N/A: Chest [employer] 73-2418 / / [employer] Sternalock Vineet 2.4mm 20mm Self Drill Lock Sternum Cancellous 73-2420 - [id number] Implanted:Qty: 6 on 08/20/2022 by Damir Mendez MD at [facility] N/A: Chest [employer] 73-2420 / / Explanted Type Area Metal Machine Setter Device Identifier Shelf Expiration Date Model / Serial / Lot [employer] Ligaclip Extra 3.2mm Ligate Open Medium Clip Internal Titanium Latex Free Lt200 - [id number] Explanted:Qty: 3 on 08/20/2022 at [facility] N/A: Chest [employer] End[employer] [id number] / / Procedures Procedure Name Priority Date/Time Associated Diagnosis Comments PROTIME-INR Routine 11/09/2024 PROTIME-INR Routine 11/05/2024 PROTIME-INR Routine 11/02/2024 SCAN - LABS 10/31/2024 PROTIME-INR Routine 10/31/2024 SCAN - LABS 10/28/2024 PROTIME-INR Routine 10/28/2024 PROTIME-INR Routine 10/16/2024 9:28 PM CDT SCAN - LABS 09/30/2024 PROTIME-INR Routine 09/30/2024 PROTIME-INR Routine 09/17/2024 PROTIME-INR Routine 09/03/2024 9:28 PM CDT SCAN - LABS 08/19/2024 PROTIME-INR Routine 08/19/2024 COMPREHENSIVE METABOLIC PANEL Routine 08/06/2024 8:40 AM CDT Hepatic cirrhosis, unspecified hepatic cirrhosis type, unspecified whether ascites present (HCC) POCT LIPID PANEL Routine 12/19/2023 11:2 5 AM CDT Secondary hypertension HEMOGLOBIN A1C Timed 08/10/2022 9:34 PM CDT from Last 3 Months or Most Recently Relevant to Health Maintenance Results * (ABNORMAL) Protime-INR (11/09/2024) INR 4.70(A) 0.90 - 1.10 EXTERNAL LAB Blood Result [facility] Provider MD LAB BLOOD ORDERABLES Ghislaine l Result EXTERNAL LAB * (ABNORMAL) Protime-INR (11/05/2024) INR 4.60(A) 0.90 - 1.10 EXTERNAL LAB Blood Result [facility] Provider MD LAB BLOOD ORDERABLES Ghislaine l Result EXTERNAL LAB * (ABNORMAL) Protime-INR (11/02/2024) INR 4.00(A) 0.90 - 1.10 EXTERNAL LAB Blood Result [facility] Historical Provider MD LAB BLOOD ORDERABLES Ghislaine l Result EXTERNAL LAB * SCAN - LABS (10/31/2024) Provider Scanning Final Result * (ABNORMAL) Protime-INR (10/31/2024) INR 2.70(A) 0.90 - 1.10 EXTERNAL LAB Blood Result [facility] Provider MD LAB BLOOD ORDERABLES Ghislaine l Result Performing Organization Address City/[place] Hospital/ZIP Co de Phone Number EXTERNAL LAB * SCAN - LABS (10/28/2024) Result [facility] Provider Scanning Final Result * (ABNORMAL) Protime-INR (10/28/2024) INR 5.30(A) 0.90 - 1.10 EXTERNAL LAB Blood Result [facility] Provider MD LAB BLOOD ORDERABLES Ghislaine l Result Performing Organization Address [facility] Hospital/ZIP Co de Phone Number EXTERNAL LAB * (ABNORMAL) Protime-INR (10/16/2024 9:28 PM CDT) INR 3.00(A) 0.90 - 1.10 EXTERNAL LAB Blood Result [facility] Provider MD LAB BLOOD ORDERABLES Edit ed Result - Final Performing Organization Address [facility] Co de Phone Number EXTERNAL LAB * SCAN - LABS (09/30/2024) Result [facility] Provider Scanning Final Result * (ABNORMAL) Protime-INR (09/30/2024) INR 2.50(A) 0.90 - 1.10 EXTERNAL LAB Blood Result [facility] Provider MD LAB BLOOD ORDERABLES Ghislaine l Result Performing Organization Address [facility] Hospital/ZIP Co de Phone Number EXTERNAL LAB * (ABNORMAL) Protime-INR (09/17/2024) INR 3.00(A) 0.90 - 1.10 EXTERNAL LAB Blood Historical Provider MD LAB BLOOD ORDERABLES Edit ed Result - Final Performing Organization Address [facility] Co de Phone Number EXTERNAL LAB * (ABNORMAL) Protime-INR (09/03/2024 9:28 PM CDT) INR 2.80(A) 0.90 - 1.10 EXTERNAL LAB Blood Historical Provider MD LAB BLOOD ORDERABLES Edit ed Result - Final Performing Organization Address [facility] Co de Phone Number EXTERNAL LAB * SCAN - LABS (08/19/2024) Provider Scanning Final Result * (ABNORMAL) Protime-INR (08/19/2024) Pathologist [facility] INR 3.10(A) 0.90 - 1.10 EXTERNAL LAB Blood 08/19/2024 Result [facility] Provider MD LAB BLOOD ORDERABLES Ghislaine l Result Performing Organization Address [facility] de Phone Number EXTERNAL LAB * (ABNORMAL) Comprehensive metabolic panel (08/06/2024 8:40 AM CDT) Glucose 104(H) 70 - 99 mg/dL [facility] [...] - 08/07/2024 2:08 AM CDT Performed at: 01 - [facility] [id number] Loom Winder Tender: Gary Atkinson PhD, Phone: [phone] us Joanna Amos MD LAB BLOOD ORDERABLES Fi nal Result [facility] - 01 * POCT lipid panel (12/19/2023 11:25 AM CDT) Pathologist [facility] Cholesterol, POC 124 mg/dL Comment:GLU = 99 HDL, POC 73 mg/dL Triglycerides, POC <45 mg/dL LDL Cholesterol POC 42 mg/dL Chol/HDL Ratio, POC N/A Non-HDL Cholesterol, POC 51 mg/dL Cholesterol Total, POC 124 mg/dL Capillary blood 12/19/2023 1 1:25 AM CDT us Reid Bush MD POINT OF CARE TEST ORDER NELLY Final Result * Hemoglobin A1c (08/10/2022 9:34 PM CDT) Pathologist [facility] Hgb A1C 5.5 4.0 - 5.6 % [facility] Estimated Average Glucose 111 mg/dL [facility] Comment: The ADA recommends reporting an estimated Average Glucose (eAG) with all Hemoglobin A1c results using the equation derived from a study of 507 normal and diabetic adults. Minority populations were underrepresented and children were not included. (Diabetes Care 2020; 43(S1): S66-S76). The eAG is not equivalent to a fasting glucose. Blood 08/10/2022 9:34 PM CDT 08/10/2022 9:57 PM CDT Ronda Arreola NP LAB BLOOD ORDERABLES Final Result [facility] [place] [address] from Last 3 Months or Most Recently Relevant to Health Maintenance Insurance MEDICARE [facility] MEDICARE [facility] MEDICARE SUPPLEMENT MEDICARE [facility] MEDICARE SUPPLEMENT Advance Directives For more information, please contact: [phone] Documents on File Type Date Recorded Patient Convention Services Manager Expl anation ADVANCE DIRECTIVE 09/05/2022 7:41 PM [employer] * Full Code (Latest Code Status on File) Date Activated Date Inactivated Comments 08/10/2022 7:57 PM 09/03/2022 9:07 PM Care Teams Lacquerer Relationship Specialty Start Date End Date Ameya Chaudhary MD [address] [place] [address] PCP - General 06/15/16 Damir Mendez MD [address] [place] [address] Surgeon Cardiothoracic Surgery 09/03/22 Unknown, Notinfile 09/03/22
--- OUTSIDE RECORDS SUMMARY | 2024-11-11 14:45 | XMS_ITS | Encounter Summary ---
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
--- OUTSIDE RECORDS SUMMARY | 2024-11-11 14:45 | XMS_ITS | Encounter Summary ---
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
--- OUTSIDE RECORDS SUMMARY | 2024-11-11 14:45 | XMS_ITS | Encounter Summary ---
Author Organization [facility] Healthcare Address [address] [place] [address] Care Team Providers Care Qc Manager Name Role Phone Ameya Chaudhary MD Primary Care Provider [phone] Damir Mendez MD Unavailable Unknown, Notinfile Unavailable Unavailable Encounter Details Date Type Department Care Team (Late st Contact Info) Description 08/30/2021 Orders Only [facility] Health Information Management [address] [place] [address] Scanning, Provider Social History Tobacco Use Types Packs/Day Years Used Date Smoking Tobacco: Never Smokeless Tobacco: Never Alcohol Use Standard Drinks/Week Comments Yes 0 (1 standard drink = 0.6 oz pur e alcohol) Sex and Gender Information Value Date Recorded Sex Assigned at Not on file 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
--- OUTSIDE RECORDS SUMMARY | 2024-11-11 14:45 | XMS_ITS | Encounter Summary ---
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
--- OUTSIDE RECORDS SUMMARY | 2024-11-11 14:45 | XMS_ITS | Encounter Summary ---
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
--- OUTSIDE RECORDS SUMMARY | 2024-11-11 14:45 | XMS_ITS | Encounter Summary ---
Author Organization [facility] Healthcare Address [address] [place] [address] Care Team Providers Care Insurance Law Specialist Name Role Phone Ameya Chaudhary MD Primary Care Provider [phone] Damir Mendez MD Unavailable [phone] Unknown, Notinfile Unavailable Unavailable Encounter Details Date Type Department Care Team (Late st Contact Info) Description 11/13/[address] 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
--- OUTSIDE RECORDS SUMMARY | 2024-11-11 14:45 | XMS_ITS | Encounter Summary ---
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
--- OUTSIDE RECORDS SUMMARY | 2024-11-11 14:46 | XMS_ITS | Encounter Summary ---
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
--- OUTSIDE RECORDS SUMMARY | 2024-11-11 14:46 | XMS_ITS | Encounter Summary ---
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
--- OUTSIDE RECORDS SUMMARY | 2024-11-11 14:46 | XMS_ITS | Encounter Summary ---
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
--- OUTSIDE RECORDS SUMMARY | 2024-11-11 14:46 | XMS_ITS | Encounter Summary ---
Author Organization [facility] Healthcare Address [address] [place] [address] Care Team Providers Care Supervisor Wash House Name Role Phone Ameya Chaudhary MD Primary Care Provider [phone] Damir Mendez MD Unavailable [phone] Unknown, Notinfile Unavailable Unavailable Encounter Details Date Type Department Care Team (Late st Contact Info) Description 11/05/2024 Telephone [facility] Medical Group Cardiology [address] [facility] [address] [id number] Reid Bush MD [address] [place] [address] Social History Tobacco Use Types Packs/Day Years [...] on file 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 * Telephone Encounter - Kristin Calderon - 11/05/2024 3:58 PM CDT Pt spouse called to report INR today is 4.6 Contact: documented in this encounter Plan of Treatment Not on file documented as of this encounter Visit Diagnoses Not on filedocumented in this encounter Care Teams Supervisor Wash House Relationship Specialty Start Date End Date Ameya Chaudhary MD [address] [place] [address] PCP - General 06/15/16 Damir Mendez MD [address] [place] [address] Surgeon Cardiothoracic Surgery 09/03/22 Unknown, Notinfile 09/03/22 documented as of this encounter
--- OUTSIDE RECORDS SUMMARY | 2024-11-11 14:46 | XMS_ITS | Encounter Summary ---
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
--- OUTSIDE RECORDS SUMMARY | 2024-11-11 14:46 | XMS_ITS | Encounter Summary ---
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
== END 2024-11-11 14:39 | disposition home or self-care (01) ==
LOC: ANHLAB 14:40
PROVIDERS: PCP Internal Medicine; Visit Provider Internal Medicine
DX: R05.9 Cough, unspecified (principal); R91.8 Other nonspecific abnormal finding of lung field; J90 Pleural effusion, not elsewhere classified; I51.7 Cardiomegaly
CPT/HCPCS: 71046

== ENCOUNTER 2025-02-02 07:08 | Outpatient (RCR) | payer MEDICARE, SELFPAY ==
--- NOTE | 2024-11-05 08:39 | WNDPHOTO ---
PHOTO ONLY - See Nursing Notes and/ or assessments for documentation.
[2024-11-05 12:15] VITALS: BMI 27.4
--- NOTE | 2024-11-24 09:56 | WNDPHOTO ---
PHOTO ONLY - See Nursing Notes and/ or assessments for documentation.
--- NOTE | 2024-11-24 09:58 | WNDPHOTO ---
PHOTO ONLY - See Nursing Notes and/ or assessments for documentation.
--- NOTE | 2024-11-24 09:58 | WNDPHOTO ---
PHOTO ONLY - See Nursing Notes and/ or assessments for documentation.
--- NOTE | 2024-12-15 09:45 | WNDPHOTO ---
PHOTO ONLY - See Nursing Notes and/ or assessments for documentation.
== END 2025-02-03 23:59 | disposition home or self-care (01) ==
LOC: ANHWOC 07:08
PROVIDERS: PCP Internal Medicine; Visit Provider Internal Medicine
DX: R60.0 Localized edema (principal); L03.116 Cellulitis of left lower limb; L03.115 Cellulitis of right lower limb
CPT/HCPCS: 29581; 99214; A9270; G0463